=== PATIENT | female | born 1955 | race Caucasian/White ===

== ENCOUNTER 2023-11-04 10:20 | Observation (INO) ==
--- NOTE | 2023-10-30 09:57 | Anesthesiology Consultation ---
Date of Service October 30, 2023 Assessment & Plan Chart Review Chart Review: Pending: Refer to Additional Notes / Consult section (Patient needs a repeat potassium drawn, potassium was 6.0 on 10/10/23) History Surgery Operation Date: 11/04/23 08:50 Proposed Procedures p Left Total Knee Arthroplasty - Andrew Juares MD Height/Weight Height: 5 ft 3 in Weight: 102.058 kg Allergies Allergy/AdvReac Type Severity Reaction Status Date / Time No Known Allergies Allergy Verified 10/29/23 16:14 Medications Home Medications Medication Instructions Recorded Confirmed Last Taken acetaminophen 500 mg tablet 1,000 mg PO TID PRN Pain 06/26/23 10/29/23 07/24/23 12:00 (Tylenol Extra Strength) alendronate 70 mg tablet (Fosamax) 70 mg PO WK 06/26/23 10/29/23 07/06/23 calcium carbonate 600 mg calcium 600 mg PO QAM 06/26/23 10/29/23 07/11/23 (1,500 mg) tablet glucosamine-chondroitin 250 mg-200 1 tab PO QAM 06/26/23 10/29/23 07/11/23 mg tablet (Osteo Bi-Flex) lisinopril 10 mg tablet 10 mg PO QAM 06/26/23 10/29/23 07/24/23 06:00 spironolactone 50 mg tablet 50 mg PO QAM 06/26/23 10/29/23 07/24/23 06:00 (Aldactone) vit C 226 mg-vit E 90 mg-copper 1 cap PO QAM 06/26/23 10/29/23 07/11/23 0.8 mg-zinc oxide-lutein 5 mg capsule (PreserVision Lutein) aspirin 81 mg tablet,delayed 81 mg PO BID 45 days #90 tabs 07/23/23 10/29/23 Unknown release (Amisha Low Dose Aspirin) sennosides 8.6 mg tablet (Senokot) 8.6 mg PO BID prevent constipation 07/23/23 10/29/23 Unknown 14 days #28 tabs Past Medical History Medical History Osteoarthritis History of blood transfusion with delivery in 1970s History of endometrial biopsy fibroid cysts, then hysterectomy History of trigger finger injection to treat once > 10 yrs ago Hypertension controlled, stable per pt History of COVID-19 x2, most recent March 2022 > not hospitalized overnight, just ED for fluids the first episode, second time took antiviral-denies residual symptoms Osteoporosis Past Surgical History Surgical History Status post right knee replacement History of hysterectomy History of colonoscopy History of tooth extraction Social History Smoking Status: Never smoker Do You Dip or Chew Tobacco: No Hx Alcohol Use: No Hx Substance Use: No substance use type: does not use Testing Laboratory Results 10/10/23 WBC 9.2 Hgb 13.7 platelet 452 Na 137 K 6.0 Cl 104 CO2 22 BUN 22 Cr 0.8 glucose 110 PT 11.2 PTT 30.1 INR 1.0 Electrocardiogram Date: 07/02/23 Findings: + NSR @ (76 bpm) Chest X-Ray Date: 07/02/23 Findings: + NAD
--- NOTE | 2023-11-02 08:15 | History & Physical Report ---
Date of Service November 02, 2023 Assessment & Plan (1) Left knee DJD: 68-year-old female 3 months out from right knee replacement with advanced left knee DJD. She has failed conservative measures. She like to proceed with a left knee replacement. Very happy with her right knee. Plan: Will take to the operative left knee replacement for the risks Mente this procedure were once again explained to the patient and she understands. She desires to proceed. With aspirin for DVT prophylaxis. She is discharged home using the [facility] health program. (2) Status post right knee replacement: History of Present Illness Chief Complaint: . Persistent left knee pain and discomfort. Primary Care Provider: Joy Juan . Patient is a 68-year-old female now about 3 months out from a right knee replacement with persistent left knee pain discomfort. She is got a long history of knee problems treated conservatively over the years which has become less successful. She is done well with the right knee replacement and very happy with it. That she like to have her left knee fixed to soon as possible. She has been through extensive conservative treatment for both her knees at [facility] in [place]. She is failed conservative care. Allergies Allergy/AdvReac Type Severity Reaction Status Date / Time No Known Allergies Allergy Verified 10/29/23 16:14 Home Medications Medication Instructions Recorded Confirmed Type acetaminophen 500 mg tablet 1,000 mg PO TID PRN Pain 06/26/23 10/29/23 History (Tylenol Extra Strength) alendronate 70 mg tablet (Fosamax) 70 mg PO WK 06/26/23 10/29/23 History calcium carbonate 600 mg calcium 600 mg PO QAM 06/26/23 10/29/23 History (1,500 mg) tablet glucosamine-chondroitin 250 mg-200 1 tab PO QAM 06/26/23 10/29/23 History mg tablet (Osteo Bi-Flex) lisinopril 10 mg tablet 10 mg PO QAM 06/26/23 10/29/23 History spironolactone 50 mg tablet 50 mg PO QAM 06/26/23 10/29/23 History (Aldactone) vit C 226 mg-vit E 90 mg-copper 1 cap PO QAM 06/26/23 10/29/23 History 0.8 mg-zinc oxide-lutein 5 mg capsule (PreserVision Lutein) aspirin 81 mg tablet,delayed 81 mg PO BID 45 days #90 tabs 07/23/23 10/29/23 Rx release (Amisha Low Dose Aspirin) sennosides 8.6 mg tablet (Senokot) 8.6 mg PO BID prevent constipation 07/23/23 10/29/23 Rx 14 days #28 tabs Past Med/Surg History Medical History (Updated 11/02/23 @ 08:14 by Andrew Juares MD) Left knee DJD Osteoarthritis History of blood transfusion with delivery in 1970s History of endometrial biopsy fibroid cysts, then hysterectomy History of trigger finger injection to treat once > 10 yrs ago Hypertension controlled, stable per pt History of COVID-19 x2, most recent March 2022 > not hospitalized overnight, just ED for fluids the first episode, second time took antiviral-denies residual symptoms Osteoporosis Surgical History Status post right knee replacement History of hysterectomy History of colonoscopy History of tooth extraction Social History Smoking Status: Never smoker Second Hand Exposure: No; Do You Dip or Chew Tobacco: No; Hx Alcohol Use: No Hx Substance Use: No Preferred Language: Kosovan Communication Ability: Effective Entertainment Centre Manager Required: No Beliefs That Will Affect Care: None Current Living Situation: Alone Feels Safe at Home: Yes Safety Concerns: Feels Safe At This Time Assistive Devices: Glasses Review of Systems All systems reviewed & are unremarkable except as noted in HPI & below. Physical Exam . Physical examination is a pleasant middle-age female but looks in good health. Examination of both knees reveal patient who ambulates independently. Examination of the left knee reveals a slight varus alignment to her knee. Moderate soft tissue envelope. Tender over the medial joint line. Small effusion. Range of motion 5-1 20. No instability. Examination of the right knee reveals well-healed incision. Not much swelling. Range of motion 0-1 20. Good straight leg raise. Constitutional WD/WN, vitals as above Neck trachea midline, no thyromegaly Respiratory normal respiratory effort, lungs clear to auscultation Cardiovascular RRR, no murmur, no edema Gastrointestinal (Abdomen) normal bowel sounds, soft, nontender, no hepatosplenomegaly Results & Data Results & Data Laboratory Results . Diagnostic Findings . X-rays of the knees were reviewed. She is got advanced left knee DJD. She got complete loss of the medial joint space. She got osteophytes medially. She is got subchondral sclerosis. The right knee replacement looks to be in good position without problems. PG Care Time/CCT Total # of Minutes Spent Total Time Spent with Patient: Total time spent is greater than 50% in coordination of care (as documented) at patient's floor/unit and/or counseling patient: Coding Level of Care Code None Diagnoses Left knee DJD M17.12 Status post right knee replacement Z96.651
[~2023-11-04 10:20] MED LIST: ACETAMINOPHEN 500 MG TAB PO SCH; BUPIVACAINE 0.25% PF 30 ML VIAL ONE; BUPIVACAINE 0.5 % 5 MG/1 ML PF 10ML VIAL ONE; CeleBREX 200 MG CAP PO SCH; FAMOTIDINE 20 MG TAB PO SCH; LR 15ML/HR IV SCH; LR 60ML/HR IV SCH; METOCLOPRAMIDE HCL 10 MG TABLET PO SCH; ROPIV 0.5% 246mg, Ketorolac 30mg, EPINEPHrine 0.5mg in NSS INFIL SCH; Scopolamine 1 MG TDSY TD SCH; TRANEXAMIC ACID 1,000 MG **IV Intra-op IV SCH; ceFAZolin 2000MG 2,000 MG/15 ML SYR IV SCH; dexAMETHasone**PF** 10 MG/ML VIAL IV SCH
--- NOTE | 2023-11-04 10:36 | History & Physical Bridge Note ---
Date of Service November 04, 2023 History & Physical Bridge Note I have examined the patient, reviewed the History & Physical and in the interval since the performance of the History & Physical I have noted the following changes of clinical significance: no changes noted
[2023-11-04] MEDS ORDERED: LIDOCAINE 2% 2 ML VIAL/AMP(20MG/ML) INFIL ONE (11:04)
[2023-11-04] MEDS ORDERED: PROPOFOL IV EMULSION 10 MG/ML 20 ML VIAL IV ONE (11:04)
[2023-11-04] MEDS ORDERED: MIDAZOLAM HCL 1 MG/ML 2ML VIAL ONE (11:04)
[2023-11-04] MEDS ORDERED: ONDANSETRON INJ 2 MG/ML 2 ML VIAL IV PRN ×2 (11:44→15:52)
[2023-11-04] MEDS ORDERED: ATROPINE SULFATE 0.1 MG/ML 10ML SYR IV PRN (11:44)
[2023-11-04] MEDS ORDERED: ePHEDrine sulfate 50 MG/ML AMP IV PRN (11:44)
[2023-11-04] MEDS ORDERED: fentaNYL citrate PF 100 MCG/2 ML VIAL IV PRN (11:44)
[2023-11-04] MEDS ORDERED: ORTHO JOINT ANESTHETIC ONE (12:29)
--- NOTE | 2023-11-04 14:35 | Operative Report ---
PG Post Operative Report Pre & Post Diagnosis Operation Date: 11/04/23 12:30 Pre-Op Diagnosis: Left Knee Advanced Degenerative Joint Disease Post-Op Diagnosis: Left Knee Advanced Degenerative Joint Disease I identified the patient and participated in the time-out.: Yes Procedure Operation Date: 11/04/23 12:30 Actual Procedures p Left Total Knee Arthroplasty(Left) - Andrew Juares MD Surgeon Andrew Juares MD Celebrity Chef Entrepreneur Media Personality Beni Gallegos PA-C Estimated Blood Loss 50 Findings Consistent with Post-Op Diagnosis Operative findings reveal advanced left knee tricompartment DJD. She had grade 4 [id number] disease in all 3 compartments most severe medially. She had medial osteophytes. Moderate-sized joint effusion. Specimens Left knee sent for pathology. Anesthesia Type Spinal MAC Complications none Disposition Accompanied Patient To Recovery: No Indications Patient is a 68-year-old female is had a long history of bilateral knee pain discomfort describes gotten worse over time patient been to extensive conservative treatments became less successful. She had her right knee replaced a little over 3 months ago and done well from this. Continued be limited by left knee pain discomfort stiffness. She elected proceed with total knee arthroplasty on the left side. Description of Procedure Operative implants consist of: 1 Biomet Vanguard size 65 left Po stabilized femoral component. 2. Biomet size 67 tibial tray. 3. 10 mm post stabilized polyethylene insert. 4. 28 x 8 all poly patella. The patient was taken to the operating, identified, placed on the operating table in the supine position. All contact areas were appropriately padded. IV antibiotics from the anesthesia team. A spinal anesthetic and abductor canal block had provided in the holding area. Aldridge catheter was placed in sterile fashion through the left thigh tent was then placed in the left lower extremities then prepped and draped in usual sterile fashion. The left leg was elevated and exsanguinated with use of an Esmarch and the turn was placed at 300 mmHg. An anterior approach the left knee was then performed to longitudinal incision centered over the patella. Sharp dissection was carried through subcutaneous tissue down the extensor mechanism. A medial parapatellar arthrotomy incision was made. Some subperiosteal dissection was get out medially. The fat pad was resected from Neath patella tendon. The lateral patellofemoral ligament was released. Patella subluxated laterally knee was flexed. The osteophytes were taken on distal femur. ACL and PCL were then released from distal femur and the tibia subluxated anteriorly. The external treatment line jig was then placed in the interface of the tibia and adjusted 14 mm medially. Proximal tibial cut was made to remove about a millimeter of bone from the most deficient aspect medial tibial plateau. The tibia sized to a size 67. Attention drawn the femur. The distal femur examined the sharp drop with intramedullary canal was suction. A left 5 degree valgus cutting guide was placed. The distal femoral cutting block was pinned in place. Distal femoral cut was made to take an additional 3 mm bone off distal femur. The femur was then sized to a size 65. The AP cutting block was pinned parallel to the epicondylar axis which was 4 degrees of external rotation. The anterior cut, anterior chamfer, posterior cut, posterior chamfer cuts were made. The box cutting guide was placed in a just slight lateral and the box cut was made. The knee was flexed. The remnants of the medial and lateral menisci were excised. The osteophytes taken off the posterior aspect of femur. A trial femoral component was placed for the tibial tray was pinned Lesly external rotation and the drill and stem punch used. Defect in proximal tibia for the tibial tray. Knee was then trialed and the 10 mm insert fit most appropriately. Attention drawn the patella. The patella was cleaned of all soft tissues. Patella thickness measured 20 mm in thickness was cut down to 12. It was sized to a size 28 patella. The lug holes were drilled for the 28 patella. The lateral osteophytes removed. Patell a button was placed. Knee was taken through range of motion patella tracked nicely with no thumbs test. Attention drawn to placing the permanent components. All trial components were removed. Bone plug was placed in the distal femur limit blood loss. A double batch Palacos G cement was mixed. Biomet Vanguard size 65 left posterior stabilized femoral component, size 67 tibial tray, a 10 mm pro stabilized polyethylene insert, and a 28 x 8 all poly patella then cemented in place. The knee was brought out into full extension till cement hardened. Final cement check was then performed. Pericapsular tissues were injected with total 100 cc of combination of 50 cc of ropivacaine with epinephrine, 30 mg of Toradol, 50 cc of normal saline. The patient did receive 1 g tranexamic acid. The tourniquet was then let down for final tourniquet time 54 minutes. Hemostasis assured use electrocautery. Extensor Metros then closed with combination 1 PDS suture #1 Vicryl suture in [id number] fashion. Extensor Meclomen checked found to be intact and subcutaneous tissue was then closed with 2 Dexon suture in a buried interrupted fashion the skin was closed skin janett. Leg was then cleaned and dried and sterile dressing was Xeroform, 4 fours, sterile cast padding, Kadeem bandage were applied. Patient then transferred to the recovery room in stable condition. Patient tolerated proced ure well and there were no complications. Beni Gallegos, my physician field research assistant, was present for the entire procedure. His assistance was essential and required for appropriate patient positioning, p repping and draping, surgical exposure, performing the technical details of the operation, placement the implants, closure of the wound, and placement of the sterile bandage. I attest to the content of the Intraoperative Record and any orders documented therein. Any exceptions are noted below.
--- NOTE | 2023-11-04 14:56 | Anesthesiology Progress Note ---
Date of Service November 04, 2023 Anesthesia Post Procedure Vital Signs Vital Signs: Temp Pulse Pulse Resp BP Pulse Ox O2 Del Method 11/04/23 14:50 75 18 112/54 L 94 Room Air 11/04/23 14:40 82 17 108/54 L 93 Room Air 11/04/23 14:31 36.5 C 81 16 102/54 L 94 Room Air 11/04/23 10:58 36.8 C 70 20 128/73 97 Room Air Pain Intensity Left Knee: Pain Intensity: 0 Transfer of Care Handoff Completed per policy Notes Mental Status: alert / awake / arousable and participated in evaluation Patient Amnestic to Procedure: Yes Nausea / Vomiting: adequately controlled Pain: adequately controlled Airway Patency, RR, SpO2: stable & adequate BP & HR: stable & adequate Hydration State: stable & adequate Neuraxial Anesthesia: was administered and sensory block is resolving Anesthetic Complications: no major complications apparent and Pt Satisfied with anesthetic care
--- NOTE | 2023-11-04 15:19 | XRay Report ---
LEFT KNEE 2 VIEWS History: Left total knee arthroplasty. Degenerative arthritis. Postop. FINDINGS: The patient is status post a left total knee arthroplasty. The hardware is intact. No fract ure or dislocation. Skin janett are in place. IMPRESSION: Left total knee arthroplasty. No evidence for hardware complication. ACT 112: Negative or not required by law. Electronically signed by: Murtaza Sawyer M.D. 11/04/2023 3:17 PM
--- OUTSIDE RECORDS SUMMARY | 2023-11-04 15:44 | External Medical Summary | Continuity of Care Document ---
Author Name Unknown Organization [place] Address [address], [address] [place] [address] Phone [phone] Problems Description No Active Problems Social History Type Date Description Comments Sex Unknown Tobacco Use Reviewed: 10/31/23 Never Smoked Cigarette s Tobacco Use Reviewed: 10/31/23 Never Smoked Cigars Smoking Status Reviewed: 10/31/23 Never Smoked Cigars Tobacco Use Reviewed: 10/31/23 Never Smoked A Pipe Smokeless Tobacco 10/31/2023 Never Used Smokeless To bacco ETOH Use Occasionally consumes alcoho l Recreational Drug Use Denies Drug Use Allergies and adverse reactions Description No Known Drug Allergies Medications Active Medications SIG Qnty Indications Order ing Provider Date Oxycodone HCL5mg Tablets 1-2 tab every 6 hours as needed Andrew Juares MD 07/26/2023 Lxhqkmdceg445qm Capsules 1 tablet by mouth twice a day Andrew Juares MD 07/26/2023 Ptlkawvoucw9aj Tablets Dispers 1 tablet every 8 hours as needed for nausea Andrew Juares MD 07/26/2023 Ketorolac Yiiieiklotbe87bb Tablets 1 tablet by mouth three times a day Andrew Juares MD 07/26/2023 Diclofenac Sodium1% Gel apply 4 grams externally to right knee 4 times daily for pain 300gm M25.561 Jimy Casanova JR, DO 05/19/2023 Alendronate Rmljnt81lz Tablets Take 1 Tablet Once Weekly 30 Minutes Before Breakfast With 8Oz Of Water. Remain Upright For 60 Minutes After Taking Medication. 12tabs YUE Cross 09/13/2022 Hkwjajwghb15jz Tablets Take 1 Tablet Daily 90tabs Joy dc MD, PhD 11/12/2019 Frjxotfckjezem73yf Tablets Take 1 Tablet Daily 90tabs YUE [place] 10/02/2018 Calcium + X9Pshqwtp 1 po qd Joy Juan MD, PhD Osteo Bi-Flex Regular [id number] Tablets 2 in the in the morning Unknown Diclofenac Jinoys18ze Tablets DR 1 by mouth twice a day 90tabs YUE [facility] Aspirin 81 Low Hdjg14dw Chewtabs 1 by mouth every day Unknown History Medications Oekygmopuu89hd Tablets 4 tabs po qd x 2 days, 3 tabs po qd x 2 days, 2 tabs po qd x 2 days, 1 tab po qd x 2 days 20tabs M25.561 Jimy Casanova JR, DO 05/19/2023 - 05/27/2023 Immunizations CPT Code Status Date Vaccine Lot # [id number] Given 07/04/2023 Influenza Vaccine High Do se 0.5ML Age 65 & > 82448 Given 07/24/2022 Influenza Vaccine High Do se 0.5ML Age 65 & > [id number] 37972 Given 07/24/2022 Pneumococcal Conjugate-Pr evnar 20 [id number] 68025 Given 08/09/2021 Influenza Virus Vaccine, Quadrivalent (Cciiv4), Derived From Cell 91432 Given 03/27/2020 Shingrix 12277 Given 12/06/2019 Shingrix 72038 Given 08/05/2019 Influenza Vacci ne Quadrivalent Preser/Antibiotic Free [place] Use 33977 Given 11/03/2018 Tdap (Tetanus, diphtheria & acel. pertussis) Adacel or Boostrix 03411 Given 07/10/2018 Influenza Virus Vaccine, Quadrivalent, Im Use 70370 Given 08/07/2017 Influenza Virus Vaccine, Quadrivalent, Im Use 61873 Given 07/15/2016 Influenza Virus Vaccine, Quadrivalent, [place] Use 83207 Given 06/29/2014 Influenza Vac, Split 3 Yr s And Up [id number] 53681 Given 06/07/2014 Zostavax Vaccine 54416 Given 07/28/2013 Influenza Vac, Split 3 Yr s And Up 92372 Given 07/24/2012 Pneumococcal Vaccine/Pneu movax 23 62855 Refused 01/23/2023 Moderna Sars-Co v-2 (Cov-19) vacc,100 mcg/ 0.5 mL 12Y+EMR Doc Only [id number] Refused 01/09/2022 Moderna Sars-Co v-2 (Cov-19) vacc,100 mcg/ 0.5 mL 12Y+EMR Doc Only 69933 Refused 12/26/2020 Moderna Sars-Co v-2 (Cov-19) vacc,100 mcg/ 0.5 mL 12Y+EMR Doc Only 11186 Refused 06/02/2020 Influenza Virus Vaccine, Quadrivalent, Im Use 18805 Refused 06/16/2019 Influenza Virus Vaccine, Quadrivalent, Im Use 32291 Refused 10/02/2018 Tdap (Tetanus, diphtheria & acel. pertussis) Adacel or Boostrix 61429 Refused 01/24/2016 Tetanus Toxoid 60865 Refused 01/24/2016 Influenza Virus Vaccine, Quadrivalent, Im Use 58420 Refused 01/04/2015 Tdap (Tetanus, diphtheria & acel. 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 [address] [place] [address] [phone] PT 11.2 SEC 10.0-12.4 1, 2 Inr 1.0 RATIO Laboratory test finding 10/17/2023 [facility] [address] [place], [place] [id number] [phone] PTT 30.1 SEC 27.0-38.1 3 BMP 10/17/2023 [facility] [address] [place], [place] [id number] [phone] Glucose 103 mg/dL 70-110 BUN 36 mg/dL High 6-25 Creatinine 1.1 mg/dL 0.5-1.2 Sodium 136 mEq/L 135-145 Potassium 5.3 mEq/L High 3.5-5.0 Chloride 103 mEq/L 95-107 Co-2 24 mEq/L 24-31 Calcium 9.8 mg/dL 8.5-10.6 GFR 53 ML/MIN/1.73SQM Low >60 Comp. Met 10/10/2023 [facility] [address] [place], [place] [address] [phone] Glucose 110 mg/dL 70-110 BUN 22 mg/dL 6-25 Creatinine 0.8 mg/dL 0.5-1.2 Sodium 137 mEq/L 135-145 Potassium 6.0 mEq/L High 3.5-5.0 Chloride 104 mEq/L 95-107 Co-2 22 mEq/L Low 24-31 Alk Phos 68 IU/L 43-122 Alt(SGPT) 19 IU/L 10-40 Ast(Sgot) 15 IU/L 3-42 T.Bilirubin 0.4 mg/dL 0.1-1.3 Calcium 9.8 mg/dL 8.5-10.6 Tot.Protein 7.3 g/dL 5.8-8.0 Albumin 4.8 g/dL 3.0-5.2 Globulin 2.5 g/dL 2.0-3.4 GFR 76 ML/MIN/1.73SQM >60 Lipid 10/10/2023 [facility] [address] [place] [address] [phone] Cholesterol 211 mg/dL High 0-200 4 Triglyceride 144 mg/dL 0-150 5 HDLD 61 mg/dL See Comment 6 Measured LDL 137 mg/dL High 0-130 7 Calc VLDL 28.8 mg/dL See Comment 8 Chol/HDL 3.5 RATIO See Comment 9 Non-HDL 150 mg/dL See Comment 10 CBC W/Diff 10/10/2023 [facility] [address] [place] [address] [phone] WBC 9.2 10^3/M3 3.1-9.2 RBC 4.49 10^6/M3 3.70-5.50 HGB 13.7 GR/DL 11.5-16.1 HCT 41.2 % 34.5-47.8 MCV 91.9 CUMICR 82.6-95.8 MCH 30.5 PICOGR 27.9-32.9 MCHC 33.2 % 32.6-35.4 RDW 14.6 % 11.4-14.6 PLT 452 10^3/M3 High 140-350 MPV 7.6 CUMICR 7.0-10.6 %Neut 65.5 % 40.0-75.0 %Lymph 22.6 % 17.0-45.0 %[place] 9.4 % 1.0-11.0 %Eos 1.4 % 0.0-6.0 %Baso 1.1 % 0.0-2.0 #Neut 6.0 10^3/M3 1.5-8.0 #Lymph 2.1 10^3/M3 0.8-3.2 #[place] 0.9 10^3/M3 High 0.0-0.8 #Eos 0.1 10^3/m3 0.0-0.4 #Baso 0.1 10^3/m3 0.0-0.2 Laboratory test finding 10/10/2023 [facility] [address] [place] [address] [phone] Vitd-25Oh 33 ng/mL 30-100 C-Reactive Prot 0.621 mg/dL 0.000-0.700 Sed Rate 8 0-20 BMP 07/18/2023 [facility] [address] [place] [address] [phone] Glucose 115 mg/dL High 70-110 11 BUN 30 mg/dL High 6-25 Creatinine 0.9 mg/dL 0.5-1.2 Sodium 143 mEq/L 135-145 Potassium 4.9 mEq/L 3.5-5.0 Chloride 111 mEq/L High 95-107 Co-2 23 mEq/L Low 24-31 Calcium 9.7 mg/dL 8.5-10.6 GFR 67 ML/MIN/1.73SQM >[address] Andrew Juares. [place] Phone - [phone] Fax [phone] NORMAL PATIENT CONTR OL IS 11.5 INR REFERENCE RANGES: PROPHYLAXIS IN CARDIC DISEASE 2.0-3.0 PROSTHETIC HEART VALVE 3.0-4.5 RECURRENT EMBOLISM 3.0-4.5 PROPHLAXIS IN HIGH RISK SURGERY 2.0-2.5 TREATMENT IN PULMONARY EMBOLIS 2.0-3.0 3 UNABLE TO VERIFY SUSIE DELLA TUBE VOLUME OF ALIQUOTTED SAMPLE. RESULT ACCURACY DEPENDENT ON PRIMARY TUBE VOLUME. PTT COMMENTS REPORT FAXED TO DOCTOR, REQUESTED ON REQUISITION.10/17/23 LM 4 CHOLESTEROL Less than 200mg/dl Low risk 201-239 mg/dl Borderline risk Equal to or greater 240mg/dl High risk CHOLESTEROL COMMENTS REPORT FAXED TO DOCTOR, REQUESTED ON REQUISITION.10/10/23 5 TRIGLYCERIDES Less than 150mg/dl Normal 150-199mg/dl Borderline 200-499mg/dl High Greater than 500mg/dl Very High 6 HDL <40mg/dl Elevated Risk 41-59mg/dl Risk >=60mg/dl Least Risk 7 LDL <100mg/dl Optimal 100-129mg/dl Near Optimal 130-159mg/dl Borderline High 160-189mg/dl High >=190 Very High 8 VLDL Less than 30mg/dl Normal 9 CHOL/HDL <4.0 Optimal 4.0-5.0 Borderline >6.0 High Risk 10 NON-HDL 30mg/dl higher than LDL Target 11 STAT RESULTS CALLED AND FAXED TO JAMES Gilliland AT 3:17 ON 07/18/23 WK Procedures Date Code Description Status 10/31/2023 3078F PVRP Diastolic BP <80 mmHg C ompleted 10/31/2023 73838 Venipuncture Routine Complet ed 10/31/2023 3074F PVRP Systolic BP <130 mmHg C ompleted 10/17/2023 91073 Venipuncture Routine Complet ed 10/13/2023 12486167 Mammogram Completed 10/10/2023 08840 Venipuncture Routine Complet ed 09/12/2023 G0283 Electrical Stimulation as Th erapy Plan Of Care Completed 09/12/2023 59828 Therapeutic Activities Direc t, Each 15 Minutes Completed 09/12/2023 09990 Therapeutic Procedure Group Completed 09/12/2023 43574 Manual Tool Crib Clerk 1/> Area 15 Min Each Region Completed 09/12/2023 38919 Therapy Proc, Neuromuscular Reeducation Of Movement Completed 09/12/2023 92420 Hot/Cold Pack Completed 09/10/2023 G0283 Electrical Stimulation as Th erapy Plan Of Care Completed 09/10/2023 74606 Hot/Cold Pack Completed 09/10/2023 13559 Therapy Proc, Neuromuscular Reeducation Of Movement Completed 09/10/2023 19970 Manual Tool Crib Clerk 1/> Area 15 Min Each Region Completed 09/10/2023 51877 Therapeutic Procedure Group Completed 09/10/2023 26821 Therapeutic Activities Direc t, Each 15 Minutes Completed 09/08/2023 32068 Hot/Cold Pack Completed 09/08/2023 25429 Therapy Proc, Neuromuscular Reeducation Of Movement Completed 09/08/2023 96652 Therapeutic Procedure Group Completed 09/08/2023 30141 Therapeutic Activities Direc t, Each 15 Minutes Completed 09/08/2023 G028 Electrical Stimulation as Th erapy Plan Of Care Completed 09/08/2023 29026 Manual Tool Crib Clerk 1/> Area 15 Min Each Region Completed 09/03/2023 G0283 Electrical Stimulation as Th erapy Plan Of Care Completed 09/03/2023 72021 Therapeutic Procedure Group Completed 09/03/2023 38682 Manual Tool Crib Clerk 1/> Area 15 Min Each Region Completed 09/03/2023 01771 Therapy Proc, Neuromuscular Reeducation Of Movement Completed 09/03/2023 48530 Hot/Cold Pack Completed 09/01/2023 72462 Manual Tool Crib Clerk 1/> Area 15 Min Each Region Completed 09/01/2023 67967 Hot/Cold Pack Completed 09/01/2023 85364 Therapy Proc, Neuromuscular Reeducation Of Movement Completed 09/01/2023 70973 Therapeutic Procedure Group Completed 09/01/2023 51911 Therapeutic Activities Direc t, Each 15 Minutes Completed 09/01/2023 G0283 Electrical Stimulation as Th erapy Plan Of Care Completed 08/27/2023 G0283 Electrical Stimulation as Th erapy Plan Of Care Completed 08/27/2023 47708 Therapeutic Activities Direc t, Each 15 Minutes Completed 08/27/2023 78052 Therapeutic Procedure Group Completed 08/27/2023 08305 Manual Tool Crib Clerk 1/> Area 15 Min Each Region Completed 08/27/2023 75211 Therapy Proc, Neuromuscular Reeducation Of Movement Completed 08/27/2023 43129 Hot/Cold Pack Completed 08/26/2023 79471 Hot/Cold Pack Completed 08/26/2023 85178 Therapy Proc 1/> Area 15Min Ea Completed 08/26/2023 53753 Manual Tool Crib Clerk 1/> Area 15 Min Each Region Completed 08/26/2023 31724 Therapy Proc, Neuromuscular Reeducation Of Movement Completed 08/26/2023 G0283 Electrical Stimulation as Th erapy Plan Of Care Completed 08/26/2023 24762 Therapeutic Activities Direc t, Each 15 Minutes Completed 08/25/2023 94847 Therapeutic Procedure Group Completed 08/25/2023 86436 Manual Tool Crib Clerk 1/> Area 15 Min Each Region Completed 08/25/2023 01712 Therapy Proc, Neuromuscular Reeducation Of Movement Completed 08/25/2023 57172 Therapy Proc 1/> Area 15Min Ea Completed 08/25/2023 04824 Hot/Cold Pack Completed 08/25/2023 G0283 Electrical Stimulation as Th erapy Plan Of Care Completed 08/22/2023 52932 Therapy Proc 1/> Area 15Min Ea Completed 08/22/2023 61416 Hot/Cold Pack Completed 08/22/2023 40813 Therapy Proc, Neuromuscular Reeducation Of Movement Completed 08/22/2023 09250 Manual Tool Crib Clerk 1/> Area 15 Min Each Region Completed 08/22/2023 51781 Therapeutic Procedure Group Completed 08/22/2023 G0283 Electrical Stimulation as Th erapy Plan Of Care Completed 08/20/2023 G0283 Electrical Stimulation as Th erapy Plan Of Care Completed 08/20/2023 67999 Manual Tool Crib Clerk 1/> Area 15 Min Each Region Completed 08/20/2023 61661 Therapy Proc, Neuromuscular Reeducation Of Movement Completed 08/20/2023 82886 Therapy Proc 1/> Area 15Min Ea Completed 08/20/2023 50521 Hot/Cold Pack Completed 08/18/2023 41434 Hot/Cold Pack Completed 08/18/2023 81286 Therapy Proc 1/> Area 15Min Ea Completed 08/18/2023 30271 Therapy Proc, Neuromuscular Reeducation Of Movement Completed 08/18/2023 43686 Therapeutic Procedure Group Completed 08/18/2023 G0283 Electrical Stimulation as Th erapy Plan Of Care Completed 08/18/2023 47689 Manual Tool Crib Clerk 1/> Area 15 Min Each Region Completed 08/15/2023 G0283 Electrical Stimulation as Th erapy Plan Of Care Completed 08/15/2023 51626 Therapeutic Procedure Group Completed 08/15/2023 11278 Manual Tool Crib Clerk 1/> Area 15 Min Each Region Completed 08/15/2023 58765 Therapy Proc, Neuromuscular Reeducation Of Movement Completed 08/15/2023 94643 Therapy Proc 1/> Area 15Min Ea Completed 08/15/2023 06607 Hot/Cold Pack Completed 08/14/2023 67984 Therapy Proc, Neuromuscular Reeducation Of Movement Completed 08/14/2023 92755 Hot/Cold Pack Completed 08/14/2023 51043 Therapy Proc 1/> Area 15Min Ea Completed 08/14/2023 21859 Manual Tool Crib Clerk 1/> Area 15 Min Each Region Completed 08/14/2023 74629 Therapeutic Procedure Group Completed 08/14/2023 G0283 Electrical Stimulation as Th erapy Plan Of Care Completed 08/12/2023 00586 Physical Therapy Evaluation Low Complexity Completed 08/12/2023 52589 Manual Tool Crib Clerk 1/> Area 15 Min Each Region Completed 08/12/2023 10675 Therapy Proc 1/> Area 15Min Ea Completed 07/28/2023 1111F D/C Medications Reconciled W/Current Medications In Outpt MR Completed 07/18/2023 70756 Venipuncture Routine Complet ed 09/05/2022 [id number] Bone Mineral Density Test Co mpleted 08/07/2018 [id number] Colonoscopy Completed Medical Devices Description No Information Available Encounters Type Date Location Provider Dx Diagnosis Office Visit 10/31/2023 11:00a [facility] [place] E87.5 Hyperkalemia E55.9 Vitamin D deficiency , unspecified M81.0 Age-related osteopor osis w/o current pathological fracture L68.0 Hirsutism I10 Essential (primary) hypertension Office Visit 07/18[place] 9[place] Z01.818 Encounter for other preprocedural examination Office Visit 05/19/2023 10:45a [place], QUIQUE M25.561 Pain in right knee M17.0 Bilateral primary os teoarthritis of knee Assessments Date Code Description Provider 10/31/2023 E87.5 Hyperkalemia YUE Cross 10/31/2023 E55.9 Vitamin D deficiency, unspec ified YUE [facility] 10/31/2023 M81.0 Age-related oste oporosis without current pathological fracture YUE Cross 10/31/2023 L68.0 Hirsutism YUE Cross 10/31/2023 I10 Essential (primary) hyperten barbara YUE Cross 10/17/2023 E87.5 Hyperkalemia Joy Juan MD, PhD 10/17/2023 E87.5 Hyperkalemia Lab - [facility] 10/17/2023 Z78.9 Other specified health statu s Joy Juan MD, PhD 10/17/2023 Z78.9 Other specified health statu s Lab - [place] 10/17/2023 Z01.818 Encounter for ot her preprocedural examination Joy Juan MD, PhD 10/17/2023 Z01.818 Encounter for ot her preprocedural examination Lab - [place] 10/10/2023 E66.01 Morbid (severe) obesity due to excess calories Joy Juan MD, PhD 10/10/2023 E66.01 Morbid (severe) obesity due to excess calories Lab - [place] 10/10/2023 D47.3 Essential (hemorrhagic) thro mbocythemia Joy Juan MD, PhD 10/10/2023 D47.3 Essential (hemorrhagic) thro mbocythemia Lab - [place] 10/10/2023 Z13.6 Encounter for wa reening for cardiovascular disorders Joy Juan MD, PhD 10/10/2023 Z13.6 Encounter for ketan chai for cardiovascular disorders Lab - [place] 10/10/2023 E55.9 Vitamin D deficiency, unspec ified Joy Juan MD, PhD 10/10/2023 E55.9 Vitamin D deficiency, unspec ified Lab - [place] 10/10/2023 Z78.9 Other specified health statu s Joy Juan MD, PhD 10/10/2023 E83.51 Hypocalcemia Lab - [facility] 10/10/2023 Z78.9 Other specified health statu s Lab - [place] 09/12/2023 M25.561 Pain in right knee Jcarlos Bailey, DPT 09/12/2023 Z47.1 Aftercare follow ing joint replacement surgery Jcarlos Bailey, DPT 09/10/2023 M25.561 Pain in right knee Jordan Morataya harpreet, DPT 09/10/2023 Z47.1 Aftercare follow ing joint replacement surgery Jordan Villareal Abdirahman, DPT 09/08/2023 M25.561 Pain in right knee Jordan Morataya harpreet, DPT 09/08/2023 Z47.1 Aftercare follow ing joint replacement surgery Jordan Villareal Abdirahman, DPT 09/05/2023 M25.561 Pain in right knee Jordan Morataya harpreet, DPT 09/05/2023 Z47.1 Aftercare follow ing joint replacement surgery Jordan Villareal Abdirahman, DPT 09/03/2023 M25.561 Pain in right knee Jordan Morataya harpreet, DPT 09/03/2023 Z47.1 Aftercare follow ing joint replacement surgery Jordan Villareal Abdirahman, DPT 09/01/2023 M25.561 Pain in right knee Jordan Morataya harpreet, DPT 09/01/2023 Z47.1 Aftercare follow ing joint replacement surgery Jordan Villareal Abdirahman, DPT 08/27/2023 M25.561 Pain in right knee Jcarlos Bailey, DPT 08/27/2023 Z47.1 Aftercare follow ing joint replacement surgery Jcarlos Bailey, DPT 08/26/2023 M25.561 Pain in right knee Jordan Morataya harpreet, DPT 08/26/2023 Z47.1 Aftercare follow ing joint replacement surgery Jordan Villareal Chester, DPT 08/25/2023 M25.561 Pain in right knee Jcarlos Bailey, DPT 08/25/2023 Z47.1 Aftercare follow ing joint replacement surgery Jcarlos Bailey, DPT 08/22/2023 M25.561 Pain in right knee Jcarlos Bailey, DPT 08/22/2023 Z47.1 Aftercare follow ing joint replacement surgery Jcarlos Bailey, DPT 08/20/2023 M25.561 Pain in right knee Jcarlos Bailey, DPT 08/20/2023 Z47.1 Aftercare follow ing joint replacement surgery Jcarlos Bailey, DPT 08/18/2023 M25.561 Pain in right knee Jcarlos Bailey, DPT 08/18/2023 Z47.1 Aftercare follow ing joint replacement surgery Jcarlos Bailey, DPT 08/15/2023 M25.561 Pain in right knee Jcarlos Bailey, DPT 08/15/2023 Z47.1 Aftercare follow ing joint replacement surgery Jcarlos Bailey, DPT 08/14/2023 M25.561 Pain in right knee Jordan Dionna mullins, DPT 08/14/2023 Z47.1 Aftercare follow ing joint replacement surgery Jordan Villareal Abdirahman, DPT 08/12/2023 M25.561 Pain in right knee Jordan Dionna mullins, DPT 08/12/2023 Z47.1 Aftercare follow ing joint replacement surgery Jordan Villareal Abdirahman, DPT 07/28/2023 M17.0 Bilateral primary osteoarthr itis of knee Joy Juan MD, PhD 07/18/2023 Z01.818 Encounter for ot her preprocedural examination [facility] 05/19/2023 M25.561 Pain in right knee Mushtaq elizabeth PA-C 05/19/2023 M17.0 Bilateral primary osteoarthr itis of knee Mushtaq Gee PA-C Plan of Treatment Future Appointment(s):* 05/07/2024 8:00 am - [facility] at [place] * 04/30/2024 6:45 am - [facility] [place] 10/31/2023 - YUE rCoss* E87.5 Hyperkalemia* Comments:* repeat today * E55.9 Vitamin D deficiency, unspecified * M81.0 Age-related osteoporosis without current pathological fracture* Comments:* up to date with dexa continue fosamax * L68.0 Hirsutism* Comments:* continue spironolactone repeat potassium today as above * I10 Essential (primary) hypertension* Comments:* well controlled, continue current meds. * All* Follow up:* 6 months with fasting labs prior Functional Status Description No Information Available Mental Status Description No Information Available Referrals Description No Information Available
--- OUTSIDE RECORDS SUMMARY | 2023-11-04 15:44 | External Medical Summary | Summary of Care ---
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 0 Active spironolactone (ALDACTONE) 25 MG Tablet Take 25 mg by mouth daily. 0 Active Calcium Carbonate (CALTRATE 600) 1500 (600 Ca) MG Tablet Take 1,500 mg by mouth daily. 0 Active Misc Natural Products (GLUCOSAMINE CHOND COMPLEX/MSM) Tablet Take 1 Tab by mouth daily. 0 Active Multiple Vitamins-Minerals (MULTIVITAMIN ADULT) TABS daily. 0 Active aspirin 81 MG chewable tablet Take 81 mg by mouth daily. 0 Active documented as of this encounter (statuses as of 10/31/2023) Immunizations Name Administration Dates Next Due TDAP (age 10 and older)(Boostrix) 11/03/2018 documented as of this encounter Social History Tobacco Use Types Packs/Day Years Used Date Smoking Tobacco: Never Smokeless Tobacco: Never Sex and Gender Information Value Date Recorded Sex Assigned at Not on file Gender Identity Not on file Sexual Orientation Not on file Job Start Date Occupation Industry Not on file Not on file Not on file documented as of this encounter Plan of Treatment Scheduled Procedures Name Priority Associated Diagnoses Date/Ti me COLONOSCOPY FLEXIBLE PROXIMAL DIAGNOSTIC Recall Colon cancer screening Health Maintenance Due Date Last Done Comments COVID-19 Vaccine (#1) 04/21/1956 Depression Screening 1968 Hepatitis C Screening 1974 Cologuard 2001 Fecal Occult Blood Test 2001 Sigmoidoscopy 2001 Mammogram 10/13/2024 10/13/2023, 12/0 10/2021, 08/28/2021, Additional history exists Colonoscopy 08/07/2028 08/07/2018, 08/07/2018 Colorectal Cancer Screening 08/07/2028 Lipid Panel 10/10/2028 10/10/2023, 0402/2023, 07/19/2022, Additional history exists DTaP,Tdap,and Td Vaccines (2 - Td or Tdap) 11/03/2028 11/03/2018 DXA Scan 09/05/2029 09/05/2022 Zoster Vaccines Completed 03/27/2020, 11/2019, 06/07/2014 Pneumococcal Vaccine: 65+ Years Completed 07/24/2022, 07/24/2012 Influenza Vaccine (FLU shot) Completed , 07/24/2022, 08/09/2021, Additional history exists GARDASIL-HPV IMMUNIZATION SERIES Aged Out No longer eligible based on patient's age to complete this topic Hepatitis B Aged Out No longer eligi ble based on patient's age to complete this topic MENINGOCOCCAL (MENACTRA/MENVEO) Aged Out No longer eligible based on patient's age to complete this topic documented as of this encounter Medical Devices Not on filedocumented as of this encounter Procedures Procedure Name Priority Date/Time Associated Diagnosis Comments BASIC METABOLIC PANEL Routine 10/31/2023 11:25 AM EST documented in this encounter Results * (ABNORMAL) BASIC METABOLIC PANEL (10/31/2023 11:25 AM EST) GLUCOSE-OUTSID E LAB 93 70 - 110 MG/DL [facility] Comment:Document delivery by Colleen on behalf of [facility] BUN-OUTSIDE LAB 29(H) 6 - 25 MG/DL [facility] Comment:Document delivery by Colleen on behalf of [facility] CREATININE-OUT SIDE LAB 1.1 0.5 - 1.2 MG/DL [facility] Comment:Document delivery by Colleen on behalf of [facility] SODIUM-OUTSIDE LAB 140 135 - 145 MEQ/L [facility] Comment:Document delivery by Colleen on behalf of [facility] POTASSIUM-OUTS KASHIF LAB 5.2(H) 3.5 - 5.0 MEQ/L [facility] Comment:Document delivery by Colleen on behalf of [facility] CHLORIDE-OUTSI DE LAB 105 95 - 107 MEQ/L [facility] Comment:Document delivery by Colleen on behalf of [facility] CO2-OUTSIDE LAB 21(L) 24 - 31 MEQ/L [facility] Comment:Document delivery by Colleen on behalf of [facility] CALCIUM-OUTSID E LAB 9.7 8.5 - 10.6 MG/DL [facility] Comment:Document delivery by Colleen on behalf of [facility] EGFR-OUTSIDE LAB 53(L) >60 ML/MIN/1.7 3 SQM [facility] Comment:Document delivery by Colleen on behalf of [facility] 10/31/2023 11:2 5 AM EST No Physician Data Unknown LAB BLOOD NARESHE LUISA [facility] Organization Address City/State/ZIP Co de Phone Number [facility] [address] [place] [address] documented in this encounter Care Teams Liquid Waste Treatment Plant Operator Relationship Specialty Start Date End Date Joy Juan MD [address] [place] [address] PCP - General Family Medicine 12/16/14 documented as of this encounter
--- OUTSIDE RECORDS SUMMARY | 2023-11-04 15:44 | External Medical Summary | Summary of Care ---
Author Name Unknown Organization [facility] Address [address] [place] [address] Phone [phone] Care Team Providers Care Oven Dauber Name Role Phone Joy Juan MD Primary Care Provider + Encounter Details Date Type Department Care Team (Latest Contact Info) Description 10/13/2023 1:41 PM EST - 10/13/2023 11:59 PM EST Hospital Encounter Radiology, [address] [place], [place] [id number] Arrived Discharge Disposition: Home - Self Care Allergies No known active allergiesdocumented as of this encounter (statuses as of 10/14/2023) Medications Medication Sig Dispensed Refills Start Date [...] as of this encounter (statuses as of 10/14/2023) Immunizations Name Administration Dates Next Due TDAP [...] as of this encounter Plan of Treatment Pending Results Name Type Priority Associated Diagnoses Date /Time MAMMOGRAM SCREENING ESTRELLA BILATERAL Medical Imaging Routine Encounter for screening mammogram for breast cancer 10/13/2023 2:01 PM EST Scheduled Procedures Name Priority Associated Diagnoses Date/Ti me COLONOSCOPY FLEXIBLE PROXIMAL DIAGNOSTIC Recall Colon cancer screening Health Maintenance Due Date Last Done Comments COVID-19 Vaccine (#1) 04/21/1956 Depression Screening 1968 Hepatitis C Screening 1974 Cologuard 2001 Fecal Occult Blood Test 2001 Sigmoidoscopy 2001 Mammogram 09/05/2023 09/05/2022, 08/07, 06/23/2020, Additional history exists Colonoscopy 08/07/2028 08/07/2018, 08/07/2018 Colorectal Cancer Screening 08/07/2028 Lipid Panel 10/10/2028 10/10/2023, 01/04, 07/19/2022, Additional history exists DTaP,Tdap,and Td Vaccines (2 - Td or Tdap) 11/03/2028 11/03/2018 DXA Scan 09/05/2029 09/05/2022 Zoster Vaccines Completed 03/27/2020, 11/2019, 06/07/2014 Pneumococcal Vaccine: 65+ Years Completed 07/24/2022, 07/24/2012 Influenza Vaccine (FLU shot) Completed , 07/24/2022, 08/05/2019, Additional history exists GARDASIL-HPV IMMUNIZATION SERIES Aged [...] Not on filedocumented as of this encounter Visit Diagnoses Diagnosis Encounter for screening mammogram for breast cancer documented in this encounter Care Teams Oven Dauber Relationship Specialty Start Date End Date Joy Juan MD [address] [facility] [place] [address] PCP - General Family Medicine 12/16/14 documented as of this encounter
--- OUTSIDE RECORDS SUMMARY | 2023-11-04 15:44 | External Medical Summary | Continuity of Care Document ---
Author Name Unknown Organization [facility] Address [address] [facility], [place] [address] Phone [phone] Problems Description No Active Problems Social History [...] hours as needed Andrew Juares MD 07/26/2023 [id number] Capsules 1 tablet by mouth twice a day Andrew Juares MD 07/26/2023 Zdeflpqphpo9eb Tablets Dispers 1 tablet every 8 hours as needed for nausea Andrew Juares MD 07/26/2023 Ketorolac Uwjeekmzexam24ps Tablets 1 tablet by mouth three times a day Andrew Juares MD 07/26/2023 Diclofenac Sodium1% Gel apply 4 grams externally to right knee 4 times daily for pain 300gm M25.561 Jimy Casanova JR, DO 05/19/2023 Alendronate Brwvza83ig Tablets Take 1 Tablet Once Weekly 30 Minutes Before Breakfast With 8Oz Of Water. Remain Upright For 60 Minutes After Taking Medication. 12tabs [facility] 09/13/2022 Noiqavlmne17lt Tablets Take 1 Tablet Daily 90tabs Joy dc MD, PhD 11/12/2019 Cyotubfjuthgpj72nb Tablets Take 1 Tablet Daily 90tabs [facility] 10/02/2018 Calcium + C4Neufper 1 po qd Joy Juan MD, PhD Osteo Bi-Flex Regular Mbsdadmr814-237vm Tablets 2 in the in the morning Unknown Diclofenac Tcflvv83dd Tablets DR 1 by mouth twice a day 90tabs [facility] Aspirin 81 Low Gwyj03tf Chewtabs 1 by mouth every day Unknown History Medications Mlnpjkroay73ck Tablets 4 tabs po qd x 2 days, 3 tabs po qd x 2 days, 2 tabs po qd x 2 days, 1 tab po qd x 2 days 20tabs M25.561 Jimy Casanova JR, DO 05/19/2023 - 05/27/2023 Immunizations CPT Code Status Date Vaccine Lot # [id number] Given 07/04/2023 Influenza Vaccine High Do se 0.5ML Age 65 & > 26582 Given 07/24/2022 Influenza Vaccine High Do se 0.5ML Age 65 & > [id number] 21007 Given 07/24/2022 Pneumococcal Conjugate-Pr evnar 20 [id number] 16908 Given 08/09/2021 Influenza Virus Vaccine, Quadrivalent (Cciiv4), Derived From Cell 39785 Given 03/27/2020 Shingrix 75720 Given 12/06/2019 Shingrix 83461 Given 08/05/2019 Influenza Vacci ne Quadrivalent Preser/[place] [address] Given 11/03/2018 Tdap (Tetanus, diphtheria & acel. pertussis) Adacel or Boostrix 24709 Given 07/10/2018 Influenza Virus Vaccine, Quadrivalent, Im Use 66421 Given 08/07/2017 Influenza Virus Vaccine, Quadrivalent, Im Use 46657 Given 07/15/2016 Influenza Virus Vaccine, Quadrivalent, Im Use 99822 Given 06/29/2014 Influenza Vac, Split 3 Yr s And Up [id number] 59101 Given 06/07/2014 Zostavax Vaccine 82986 Given 07/28/2013 Influenza Vac, Split 3 Yr s And Up 25560 Given 07/24/2012 Pneumococcal Vaccine/Pneu movax 23 47927 Refused 01/23/2023 Moderna Sars-Co v-2 (Cov-19) vacc,100 mcg/ 0.5 mL 12Y+EMR Doc Only 37510 Refused 01/09/2022 Moderna Sars-Co v-2 (Cov-19) vacc,100 mcg/ 0.5 mL 12Y+EMR Doc Only 41950 Refused 12/26/2020 Moderna Sars-Co v-2 (Cov-19) vacc,100 mcg/ 0.5 mL 12Y+EMR Doc Only 38194 Refused 06/02/2020 Influenza Virus Vaccine, Quadrivalent, Im Use 28523 Refused 06/16/2019 Influenza Virus Vaccine, Quadrivalent, Im Use 91265 Refused 10/02/2018 Tdap (Tetanus, diphtheria & acel. pertussis) Adacel or Boostrix 03286 Refused 01/24/2016 Tetanus Toxoid 88241 Refused 01/24/2016 Influenza Virus Vaccine, Quadrivalent, Im Use 99040 Refused 01/04/2015 Tdap (Tetanus, diphtheria & acel. [...] 5'1" BMI (Body Mass Index) 42.9 kg/m2 [place] Body Weight 105 lb Results Test Acquired Date Facility Test Result H/L Range N ote PT Inr DESIGNER ARCHITECT 10/17/2023 [facility] [address] [place] [address] [phone] PT 11.2 SEC 10.0-12.4 1, 2 Inr 1.0 RATIO Laboratory test finding 10/17/2023 [facility] [address] [place], [place] [id number] [phone] PTT 30.1 SEC 27.0-38.1 3 BMP 10/17/2023 [facility] [address] [place], [place] [id number] [phone] Glucose 103 mg/dL 70-110 BUN 36 mg/dL High 6-25 Creatinine 1.1 mg/dL 0.5-1.2 Sodium 136 mEq/L 135-145 Potassium 5.3 mEq/L High 3.5-5.0 Chloride 103 mEq/L 95-107 Co-2 24 mEq/L 24-31 Calcium 9.8 mg/dL 8.5-10.6 GFR 53 ML/MIN/1.73SQM Low >60 Comp. Met 10/10/2023 [facility] [address] [place], [place] [address] [phone] Glucose 110 mg/dL 70-110 BUN 22 mg/dL [...] 2.0-3.4 GFR 76 ML/MIN/1.73SQM >60 Lipid 10/10/2023 [facility] [address] [place] [address] [phone] Cholesterol 211 mg/dL High 0-200 4 Triglyceride 144 mg/dL 0-150 5 HDLD 61 mg/dL See Comment 6 Measured LDL 137 mg/dL High 0-130 7 Calc VLDL 28.8 mg/dL See Comment 8 Chol/HDL 3.5 RATIO See Comment 9 Non-HDL 150 mg/dL See Comment 10 CBC W/Diff 10/10/2023 [facility] [address] [place] [address] [phone] WBC 9.2 10^3/M3 3.1-9.2 RBC 4.49 10^6/M3 3.70-5.50 HGB 13.7 GR/DL 11.5-16.1 HCT 41.2 % 34.5-47.8 MCV 91.9 CUMICR 82.6-95.8 MCH 30.5 PICOGR 27.9-32.9 MCHC 33.2 % 32.6-35.4 RDW 14.6 % 11.4-14.6 PLT 452 10^3/M3 High 140-350 MPV 7.6 CUMICR 7.0-10.6 %Neut 65.5 % 40.0-75.0 %Lymph 22.6 % 17.0-45.0 %Jay 9.4 % 1.0-11.0 %Eos 1.4 % 0.0-6.0 %Baso 1.1 % 0.0-2.0 #Neut 6.0 10^3/M3 1.5-8.0 #Lymph 2.1 10^3/M3 0.8-3.2 #Jay 0.9 10^3/M3 High 0.0-0.8 #Eos 0.1 10^3/m3 0.0-0.4 #Baso 0.1 10^3/m3 0.0-0.2 Laboratory test finding 10/10/2023 [facility] [address] [place] [address] [phone] Vitd-25Oh 33 ng/mL 30-100 C-Reactive Prot 0.621 mg/dL 0.000-0.700 Sed Rate 8 0-20 BMP 07/18/2023 [facility] [address] [place] [address] [phone] Glucose 115 mg/dL High 70-110 11 BUN 30 mg/dL High 6-25 Creatinine 0.9 mg/dL 0.5-1.2 Sodium 143 mEq/L 135-145 Potassium 4.9 mEq/L 3.5-5.0 Chloride 111 mEq/L High 95-107 Co-2 23 mEq/L Low 24-31 Calcium 9.7 mg/dL 8.5-10.6 GFR 67 ML/MIN/1.73SQM >[address] Andrew Juares. Ort ho Phone - [phone] Fax [phone] NORMAL PATIENT CONTR OL IS 11.5 [...] Diastolic BP <80 mmHg C ompleted 10/31/2023 40128 Venipuncture Routine Complet ed 10/31/2023 3074F PVRP Systolic BP <130 mmHg C ompleted 10/17/2023 65235 Venipuncture Routine Complet ed 10/13/2023 55721305 Mammogram Completed 10/10/2023 83468 Venipuncture Routine Complet ed 09/12/2023 G0283 Electrical Stimulation as Th erapy Plan Of Care Completed 09/12/2023 30462 Therapeutic Activities Direc t, Each 15 Minutes Completed 09/12/2023 64629 Therapeutic Procedure Group Completed 09/12/2023 15112 Manual Leather Fitter 1/> Area 15 Min Each Region Completed 09/12/2023 63456 Therapy Proc, Neuromuscular Reeducation Of Movement Completed 09/12/2023 52122 Hot/Cold Pack Completed 09/10/2023 G0283 Electrical Stimulation as Th erapy Plan Of Care Completed 09/10/2023 97503 Hot/Cold Pack Completed 09/10/2023 28351 Therapy Proc, Neuromuscular Reeducation Of Movement Completed 09/10/2023 66842 Manual Leather Fitter 1/> Area 15 Min Each Region Completed 09/10/2023 42259 Therapeutic Procedure Group Completed 09/10/2023 03378 Therapeutic Activities Direc t, Each 15 Minutes Completed 09/08/2023 44673 Hot/Cold Pack Completed 09/08/2023 67680 Therapy Proc, Neuromuscular Reeducation Of Movement Completed 09/08/2023 19727 Therapeutic Procedure Group Completed 09/08/2023 28534 Therapeutic Activities Direc t, Each 15 Minutes Completed 09/08/2023 G028 Electrical Stimulation as Th erapy Plan Of Care Completed 09/08/2023 20696 Manual Leather Fitter 1/> Area 15 Min Each Region Completed 09/03/2023 G0283 Electrical Stimulation as Th erapy Plan Of Care Completed 09/03/2023 53625 Therapeutic Procedure Group Completed 09/03/2023 77392 Manual Leather Fitter 1/> Area 15 Min Each Region Completed 09/03/2023 51874 Therapy Proc, Neuromuscular Reeducation Of Movement Completed 09/03/2023 91236 Hot/Cold Pack Completed 09/01/2023 06283 Manual Leather Fitter 1/> Area 15 Min Each Region Completed 09/01/2023 01733 Hot/Cold Pack Completed 09/01/2023 39249 Therapy Proc, Neuromuscular Reeducation Of Movement Completed 09/01/2023 30188 Therapeutic Procedure Group Completed 09/01/2023 27525 Therapeutic Activities Direc t, Each 15 Minutes Completed 09/01/2023 G0283 Electrical Stimulation as Th erapy Plan Of Care Completed 08/27/2023 G0283 Electrical Stimulation as Th erapy Plan Of Care Completed 08/27/2023 01054 Therapeutic Activities Direc t, Each 15 Minutes Completed 08/27/2023 51557 Therapeutic Procedure Group Completed 08/27/2023 43457 Manual Leather Fitter 1/> Area 15 Min Each Region Completed 08/27/2023 03798 Therapy Proc, Neuromuscular Reeducation Of Movement Completed 08/27/2023 98015 Hot/Cold Pack Completed 08/26/2023 43102 Hot/Cold Pack Completed 08/26/2023 55388 Therapy Proc 1/> Area 15Min Ea Completed 08/26/2023 40978 Manual Leather Fitter 1/> Area 15 Min Each Region Completed 08/26/2023 02527 Therapy Proc, Neuromuscular Reeducation Of Movement Completed 08/26/2023 G0283 Electrical Stimulation as Th erapy Plan Of Care Completed 08/26/2023 45690 Therapeutic Activities Direc t, Each 15 Minutes Completed 08/25/2023 13659 Therapeutic Procedure Group Completed 08/25/2023 92975 Manual Leather Fitter 1/> Area 15 Min Each Region Completed 08/25/2023 27427 Therapy Proc, Neuromuscular Reeducation Of Movement Completed 08/25/2023 52522 Therapy Proc 1/> Area 15Min Ea Completed 08/25/2023 90469 Hot/Cold Pack Completed 08/25/2023 G0283 Electrical Stimulation as Th erapy Plan Of Care Completed 08/22/2023 80304 Therapy Proc 1/> Area 15Min Ea Completed 08/22/2023 96925 Hot/Cold Pack Completed 08/22/2023 36103 Therapy Proc, Neuromuscular Reeducation Of Movement Completed 08/22/2023 72547 Manual Leather Fitter 1/> Area 15 Min Each Region Completed 08/22/2023 83301 Therapeutic Procedure Group Completed 08/22/2023 G0283 Electrical Stimulation as Th erapy Plan Of Care Completed 08/20/2023 G0283 Electrical Stimulation as Th erapy Plan Of Care Completed 08/20/2023 53253 Manual Leather Fitter 1/> Area 15 Min Each Region Completed 08/20/2023 03520 Therapy Proc, Neuromuscular Reeducation Of Movement Completed 08/20/2023 57747 Therapy Proc 1/> Area 15Min Ea Completed 08/20/2023 64632 Hot/Cold Pack Completed 08/18/2023 46562 Hot/Cold Pack Completed 08/18/2023 68262 Therapy Proc 1/> Area 15Min Ea Completed 08/18/2023 40244 Therapy Proc, Neuromuscular Reeducation Of Movement Completed 08/18/2023 84213 Therapeutic Procedure Group Completed 08/18/2023 G0283 Electrical Stimulation as Th erapy Plan Of Care Completed 08/18/2023 88720 Manual Leather Fitter 1/> Area 15 Min Each Region Completed 08/15/2023 G0283 Electrical Stimulation as Th erapy Plan Of Care Completed 08/15/2023 03877 Therapeutic Procedure Group Completed 08/15/2023 93096 Manual Leather Fitter 1/> Area 15 Min Each Region Completed 08/15/2023 07508 Therapy Proc, Neuromuscular Reeducation Of Movement Completed 08/15/2023 88452 Therapy Proc 1/> Area 15Min Ea Completed 08/15/2023 13817 Hot/Cold Pack Completed 08/14/2023 97103 Therapy Proc, Neuromuscular Reeducation Of Movement Completed 08/14/2023 04145 Hot/Cold Pack Completed 08/14/2023 85127 Therapy Proc 1/> Area 15Min Ea Completed 08/14/2023 16947 Manual Leather Fitter 1/> Area 15 Min Each Region Completed 08/14/2023 92562 Therapeutic Procedure Group Completed 08/14/2023 G0283 Electrical Stimulation as Th erapy Plan Of Care Completed 08/12/2023 32343 Physical Therapy Evaluation Low Complexity Completed 08/12/2023 31501 Manual Leather Fitter 1/> Area 15 Min Each Region Completed 08/12/2023 62949 Therapy Proc 1/> Area 15Min Ea Completed 07/28/2023 1111F D/C Medications Reconciled W/Current Medications In Outpt MR Completed 07/18/2023 46071 Venipuncture Routine Complet ed 09/05/2022 [id number] Bone Mineral Density Test Co mpleted 08/07/2018 51405376 Colonoscopy Completed Medical Devices Description No Information Available Encounters Type Date Location Provider Dx Diagnosis Office Visit 10/31/2023 11:00a [facility] E87.5 Hyperkalemia E55.9 Vitamin D deficiency , unspecified M81.0 Age-related osteopor osis w/o current pathological fracture L68.0 Hirsutism I10 Essential (primary) hypertension Office Visit 07/18/2023 9:00a [facility] Z01.818 Encounter for other preprocedural examination Office Visit 05/19/2023 10:45a [facility] Varghese op, QUIQUE M25.561 Pain in right [...] MD, PhD 10/17/2023 E87.5 Hyperkalemia Lab - [facility] 10/17/2023 Z78.9 Other specified health statu s Joy Juan MD, PhD 10/17/2023 Z78.9 Other specified health statu s [facility] - [facility] 10/17/2023 Z01.818 Encounter for ot her preprocedural examination Joy Juan MD, PhD 10/17/2023 Z01.818 Encounter for ot her preprocedural examination Lab - [facility] 10/10/2023 E66.01 Morbid (severe) obesity due to excess calories Joy Juan MD, PhD 10/10/2023 E66.01 Morbid (severe) obesity due to excess calories Lab - [facility] 10/10/2023 D47.3 Essential (hemorrhagic) thro mbocythemia Joy Juan MD, PhD 10/10/2023 D47.3 Essential (hemorrhagic) thro mbocythemia Lab - [facility] 10/10/2023 Z13.6 Encounter for nh reening for cardiovascular disorders Joy Juan MD, PhD 10/10/2023 Z13.6 Encounter for ketan chai for cardiovascular disorders Lab - [facility] 10/10/2023 E55.9 Vitamin D deficiency, unspec ified Joy Juan MD, PhD 10/10/2023 E55.9 Vitamin D deficiency, unspec ified Lab - [facility] 10/10/2023 Z78.9 Other specified health statu s Joy Juan MD, PhD 10/10/2023 E83.51 Hypocalcemia Lab - [facility] 10/10/2023 Z78.9 Other specified health statu s [facility] - [facility] 09/12/2023 M25.561 Pain in right knee Jcarlos [...] follow ing joint replacement surgery Jordan Villareal [place], DPT 08/25/2023 M25.561 Pain in right knee [...] Treatment Future Appointment(s):* 05/07/2024 8:00 am - [facility] * 04/30/2024 6:45 am - Lab - [facility] 10/31/2023 - [facility]* E87.5 Hyperkalemia* Comments:* repeat today * E55.9 [...]
--- OUTSIDE RECORDS SUMMARY | 2023-11-04 15:44 | External Medical Summary ---
Author Name Unknown Address Unknown Organization [facility] [address] [place] [id number] Laboratory Report Ordering Provider Test Date Status KODAK ALEMAN 10/17/2023 06:39 Final Observation Date Value Abnormality Reference (Units ) Status Glucose 10/17/2023 10:17 103 70-110 (MG/DL ) Final BUN 10/17/2023 10:17 36 Above high normal 6-25 (MG/DL) Final Creatinine 10/17/2023 10:17 1.1 0.5-1.2 (MG/ DL) Final Sodium 10/17/2023 10:17 136 135-145 (MEQ/ L) Final Potassium 10/17/2023 10:17 5.3 Above high normal 3.5-5 .0 (MEQ/L) Final Cl 10/17/2023 10:17 103 95-107 (MEQ/L ) Final CO2 10/17/2023 10:17 24 24-31 (MEQ/L) Final Calcium 10/17/2023 10:17 9.8 8.5-10.6 (MG/ DL) Final GFR (estimated) 10/17/2023 10:17 53 Below low normal >60 (ML/MIN/1.73 SQM) Final Performing Location [facility] [address] [place] [address]
--- OUTSIDE RECORDS SUMMARY | 2023-11-04 15:44 | External Medical Summary | Continuity of Care Document ---
Author Name Unknown Organization [facility] er, Address [address] [place] [address] Phone [phone] Problems Description No Active Problems Social History Type Date Description Comments Sex Unknown Tobacco Use Reviewed: 05/19/23 Never Smoked Cigarette s Tobacco Use Reviewed: 05/19/23 Never Smoked Cigars Smoking Status Reviewed: 07/18/23 Never Smoked Cigars Tobacco Use Reviewed: 05/19/23 Never Smoked A Pipe Smokeless Tobacco 05/19/2023 Never Used Smokeless To bacco ETOH Use Occasionally consumes alcoho l Recreational Drug Use Denies Drug Use Allergies and adverse reactions Description No Known Drug Allergies Medications Active Medications SIG Qnty Indications Order ing Provider Date Oxycodone HCL5mg Tablets 1-2 tab every 6 hours as needed Andrew Juares MD 07/26/2023 [id number] Capsules 1 tablet by mouth twice a day Andrew Juares MD 07/26/2023 Zvfkmpfmbpl5md Tablets Dispers 1 tablet every 8 hours as needed for nausea Andrew Juares MD 07/26/2023 Ketorolac Jpdefzscuvni71pi Tablets 1 tablet by mouth three times a day Andrew Juares MD 07/26/2023 Diclofenac Sodium1% Gel apply 4 grams externally to right knee 4 times daily for pain 300gm M25.561 Jimy Casanova JR, DO 05/19/2023 Alendronate Gemkue78kq Tablets Take 1 Tablet Once Weekly 30 Minutes Before Breakfast With 8Oz Of Water. Remain Upright For 60 Minutes After Taking Medication. 12tabs [facility] 09/13/2022 Lqdokdwnqf58it Tablets Take 1 Tablet Daily 90tabs Joy dc MD, PhD 11/12/2019 Zmgkrwtyaefyfx30rn Tablets Take 1 Tablet Daily 90tabs YUE Davis 10/02/2018 Calcium + J7Ouvusiz 1 po qd Joy Juan MD, PhD Osteo Bi-Flex Regular Ejgeyyfp569-817te Tablets 2 in the in the morning Unknown Diclofenac Idgsic91ty Tablets DR 1 by mouth twice a day 90tabs [facility] Aspirin 81 Low Wqcd45zq Chewtabs 1 by mouth every day Unknown History Medications Uvayujoaoy76ab Tablets 4 tabs po qd x 2 days, 3 tabs po qd x 2 days, 2 tabs po qd x 2 days, 1 tab po qd x 2 days 20tabs M25.561 Jimy Casanova JR, DO 05/19/2023 - 05/27/2023 Immunizations CPT Code Status Date Vaccine Lot # [id number] Given 07/04/2023 Influenza Vaccine High Do se 0.5ML Age 65 & > 91421 Given 07/24/2022 Influenza Vaccine High Do se 0.5ML Age 65 & > [id number] 46463 Given 07/24/2022 Pneumococcal Conjugate-Pr evnar 20 [id number] 98337 Given 08/09/2021 Influenza Virus Vaccine, Quadrivalent (Cciiv4), Derived From Cell 05413 Given 03/27/2020 Shingrix 74651 Given 12/06/2019 Shingrix 52259 Given 08/05/2019 Influenza Vacci ne Quadrivalent Preser/Antibiotic [place] Use 31599 Given 11/03/2018 Tdap (Tetanus, diphtheria & acel. pertussis) Adacel or Boostrix 53474 Given 07/10/2018 Influenza Virus Vaccine, Quadrivalent, Im Use 26686 Given 08/07/2017 Influenza Virus Vaccine, Quadrivalent, Im Use 60941 Given 07/15/2016 Influenza Virus Vaccine, Quadrivalent, Im Use 94254 Given 06/29/2014 Influenza Vac, Split 3 Yr s And Up [id number] 55234 Given 06/07/2014 Zostavax Vaccine 05285 Given 07/28/2013 Influenza Vac, Split 3 Yr s And Up 59298 Given 07/24/2012 Pneumococcal Vaccine/Pneu movax 23 45921 Refused 01/23/2023 Moderna Sars-Co v-2 (Cov-19) vacc,100 mcg/ 0.5 mL 12Y+EMR Doc Only 37993 Refused 01/09/2022 Moderna Sars-Co v-2 (Cov-19) vacc,100 mcg/ 0.5 mL 12Y+EMR Doc Only 85568 Refused 12/26/2020 Moderna Sars-Co v-2 (Cov-19) vacc,100 mcg/ 0.5 mL 12Y+EMR Doc Only 89333 Refused 06/02/2020 Influenza Virus Vaccine, Quadrivalent, Im Use 72769 Refused 06/16/2019 Influenza Virus Vaccine, Quadrivalent, Im Use 86563 Refused 10/02/2018 Tdap (Tetanus, diphtheria & acel. pertussis) Adacel or Boostrix 96815 Refused 01/24/2016 Tetanus Toxoid 63443 Refused 01/24/2016 Influenza Virus Vaccine, Quadrivalent, Im Use 17881 Refused 01/04/2015 Tdap (Tetanus, diphtheria & acel. pertussis) Adacel or Boostrix Vital Signs Date Vital Result Comment 07/18/2023 9:07am BP Systolic 130 mmHg BP Diastolic 70 mmHg Body Temperature 97.9 F Heart Rate 72 /min Respiratory Rate 18 /min Weight 227.00 lb Weight 102.967 kg Height 61 inches 5'1" BMI (Body Mass Index) 42.9 kg/m2 [place] Body Weight 105 lb 05/19/2023 10:38am BP Systolic 120 mmHg BP Diastolic 76 mmHg Body Temperature 97.3 F Heart Rate 74 /min Respiratory Rate 18 /min Weight 223.38 lb Weight 101.323 kg Results Test Acquired Date Facility Test Result H/L Range N ote PT Inr PHARMACEUTICAL REPRESENTATIVE 10/17/2023 [facility] [address] [place], [place] [id number] [phone] PT 11.2 SEC 10.0-12.4 1, 2 Inr 1.0 RATIO Laboratory test finding 10/17/2023 [facility] [address] [place], [place] [id number] [phone] PTT 30.1 SEC 27.0-38.1 3 BMP 10/17/2023 [facility] [address] [place], [place] [id number] [phone] Glucose 103 mg/dL 70-110 BUN 36 mg/dL High 6-25 Creatinine 1.1 mg/dL 0.5-1.2 Sodium 136 mEq/L 135-145 Potassium 5.3 mEq/L High 3.5-5.0 Chloride 103 mEq/L 95-107 Co-2 24 mEq/L 24-31 Calcium 9.8 mg/dL 8.5-10.6 GFR 53 ML/MIN/1.73SQM Low >60 Comp. Met 10/10/2023 [facility] [address] [place], [place] [address] [phone] Glucose 110 mg/dL 70-110 BUN 22 mg/dL [...] 2.0-3.4 GFR 76 ML/MIN/1.73SQM >60 Lipid 10/10/2023 [facility] [address] [place] [address] [phone] Cholesterol 211 mg/dL High 0-200 4 Triglyceride 144 mg/dL 0-150 5 HDLD 61 mg/dL See Comment 6 Measured LDL 137 mg/dL High 0-130 7 Calc VLDL 28.8 mg/dL See Comment 8 Chol/HDL 3.5 RATIO See Comment 9 Non-HDL 150 mg/dL See Comment 10 CBC W/Diff 10/10/2023 [facility] [address] [place] [address] [phone] WBC 9.2 10^3/M3 3.1-9.2 RBC 4.49 10^6/M3 3.70-5.50 HGB 13.7 GR/DL 11.5-16.1 HCT 41.2 % 34.5-47.8 MCV 91.9 CUMICR 82.6-95.8 MCH 30.5 PICOGR 27.9-32.9 MCHC 33.2 % 32.6-35.4 RDW 14.6 % 11.4-14.6 PLT 452 10^3/M3 High 140-350 MPV 7.6 CUMICR 7.0-10.6 %Neut 65.5 % 40.0-75.0 %Lymph 22.6 % 17.0-45.0 %[place] 9.4 % 1.0-11.0 %Eos 1.4 % 0.0-6.0 %Baso 1.1 % 0.0-2.0 #Neut 6.0 10^3/M3 1.5-8.0 #Lymph 2.1 10^3/M3 0.8-3.2 #[place] 0.9 10^3/M3 High 0.0-0.8 #Eos 0.1 10^3/m3 0.0-0.4 #Baso 0.1 10^3/m3 0.0-0.2 Laboratory test finding 10/10/2023 [facility] [address] [place] [address] [phone] Vitd-25Oh 33 ng/mL 30-100 C-Reactive Prot 0.621 mg/dL 0.000-0.700 Sed Rate 8 0-20 BMP 07/18/2023 [facility] [address] [place], [place] [address] [phone] Glucose 115 mg/dL High 70-110 11 BUN 30 mg/dL High 6-25 Creatinine 0.9 mg/dL 0.5-1.2 Sodium 143 mEq/L 135-145 Potassium 4.9 mEq/L 3.5-5.0 Chloride 111 mEq/L High 95-107 Co-2 23 mEq/L Low 24-31 Calcium 9.7 mg/dL 8.5-10.6 GFR 67 ML/MIN/1.73SQM >[address] Andrew Juares. [place] Phone - [phone] Fax [phone] NORMAL PATIENT CONTR OL IS 11.5 [...] 07/18/23 [facility] Procedures Date Code Description Status 10/17/2023 32370 Venipuncture Routine Complet ed 10/13/2023 43489977 Mammogram Completed 10/10/2023 55413 Venipuncture Routine Complet ed 09/12/2023 G0283 Electrical Stimulation as Th erapy Plan Of Care Completed 09/12/2023 81536 Therapeutic Activities Direc t, Each 15 Minutes Completed 09/12/2023 52554 Therapeutic Procedure Group Completed 09/12/2023 81376 Manual Coagulating Bath Mixer 1/> Area 15 Min Each Region Completed 09/12/2023 07772 Therapy Proc, Neuromuscular Reeducation Of Movement Completed 09/12/2023 11138 Hot/Cold Pack Completed 09/10/2023 49627 Manual Coagulating Bath Mixer 1/> Area 15 Min Each Region Completed 09/10/2023 99473 Hot/Cold Pack Completed 09/10/2023 85638 Therapy Proc, Neuromuscular Reeducation Of Movement Completed 09/10/2023 40805 Therapeutic Procedure Group Completed 09/10/2023 39218 Therapeutic Activities Direc t, Each 15 Minutes Completed 09/10/2023 G0283 Electrical Stimulation as Th erapy Plan Of Care Completed 09/08/2023 G028 Electrical Stimulation as Th erapy Plan Of Care Completed 09/08/2023 57893 Therapeutic Activities Direc t, Each 15 Minutes Completed 09/08/2023 06125 Therapeutic Procedure Group Completed 09/08/2023 05950 Manual Coagulating Bath Mixer 1/> Area 15 Min Each Region Completed 09/08/2023 34746 Therapy Proc, Neuromuscular Reeducation Of Movement Completed 09/08/2023 48922 Hot/Cold Pack Completed 09/03/2023 83024 Therapy Proc, Neuromuscular Reeducation Of Movement Completed 09/03/2023 13065 Hot/Cold Pack Completed 09/03/2023 87545 Manual Coagulating Bath Mixer 1/> Area 15 Min Each Region Completed 09/03/2023 G0283 Electrical Stimulation as Th erapy Plan Of Care Completed 09/03/2023 40703 Therapeutic Procedure Group Completed 09/01/2023 G0283 Electrical Stimulation as Th erapy Plan Of Care Completed 09/01/2023 87298 Therapeutic Activities Direc t, Each 15 Minutes Completed 09/01/2023 85552 Therapeutic Procedure Group Completed 09/01/2023 51255 Manual Coagulating Bath Mixer 1/> Area 15 Min Each Region Completed 09/01/2023 90240 Therapy Proc, Neuromuscular Reeducation Of Movement Completed 09/01/2023 30376 Hot/Cold Pack Completed 08/27/2023 38744 Therapy Proc, Neuromuscular Reeducation Of Movement Completed 08/27/2023 19824 Hot/Cold Pack Completed 08/27/2023 06421 Manual Coagulating Bath Mixer 1/> Area 15 Min Each Region Completed 08/27/2023 72523 Therapeutic Procedure Group Completed 08/27/2023 85697 Therapeutic Activities Direc t, Each 15 Minutes Completed 08/27/2023 G028 Electrical Stimulation as Th erapy Plan Of Care Completed 08/26/2023 G028 Electrical Stimulation as Th erapy Plan Of Care Completed 08/26/2023 07858 Therapeutic Activities Direc t, Each 15 Minutes Completed 08/26/2023 37722 Manual Coagulating Bath Mixer 1/> Area 15 Min Each Region Completed 08/26/2023 42957 Therapy Proc, Neuromuscular Reeducation Of Movement Completed 08/26/2023 66385 Therapy Proc 1/> Area 15Min Ea Completed 08/26/2023 95704 Hot/Cold Pack Completed 08/25/2023 G028 Electrical Stimulation as Th erapy Plan Of Care Completed 08/25/2023 46150 Hot/Cold Pack Completed 08/25/2023 28061 Therapy Proc 1/> Area 15Min Ea Completed 08/25/2023 82216 Manual Coagulating Bath Mixer 1/> Area 15 Min Each Region Completed 08/25/2023 31741 Therapeutic Procedure Group Completed 08/25/2023 37273 Therapy Proc, Neuromuscular Reeducation Of Movement Completed 08/22/2023 G028 Electrical Stimulation as Th erapy Plan Of Care Completed 08/22/2023 03761 Therapeutic Procedure Group Completed 08/22/2023 58916 Manual Coagulating Bath Mixer 1/> Area 15 Min Each Region Completed 08/22/2023 84361 Therapy Proc, Neuromuscular Reeducation Of Movement Completed 08/22/2023 96510 Therapy Proc 1/> Area 15Min Ea Completed 08/22/2023 23609 Hot/Cold Pack Completed 08/20/2023 24604 Therapy Proc 1/> Area 15Min Ea Completed 08/20/2023 34508 Hot/Cold Pack Completed 08/20/2023 23256 Therapy Proc, Neuromuscular Reeducation Of Movement Completed 08/20/2023 89246 Manual Coagulating Bath Mixer 1/> Area 15 Min Each Region Completed 08/20/2023 G028 Electrical Stimulation as Th erapy Plan Of Care Completed 08/18/2023 G0283 Electrical Stimulation as Th erapy Plan Of Care Completed 08/18/2023 85068 Therapeutic Procedure Group Completed 08/18/2023 36816 Manual Coagulating Bath Mixer 1/> Area 15 Min Each Region Completed 08/18/2023 41475 Therapy Proc, Neuromuscular Reeducation Of Movement Completed 08/18/2023 05352 Therapy Proc 1/> Area 15Min Ea Completed 08/18/2023 09261 Hot/Cold Pack Completed 08/15/2023 G0283 Electrical Stimulation as Th erapy Plan Of Care Completed 08/15/2023 23601 Hot/Cold Pack Completed 08/15/2023 06889 Therapy Proc 1/> Area 15Min Ea Completed 08/15/2023 21071 Therapy Proc, Neuromuscular Reeducation Of Movement Completed 08/15/2023 75108 Manual Coagulating Bath Mixer 1/> Area 15 Min Each Region Completed 08/15/2023 28272 Therapeutic Procedure Group Completed 08/14/2023 G0283 Electrical Stimulation as Th erapy Plan Of Care Completed 08/14/2023 62554 Therapeutic Procedure Group Completed 08/14/2023 44173 Manual Coagulating Bath Mixer 1/> Area 15 Min Each Region Completed 08/14/2023 33159 Therapy Proc, Neuromuscular Reeducation Of Movement Completed 08/14/2023 47236 Therapy Proc 1/> Area 15Min Ea Completed 08/14/2023 93744 Hot/Cold Pack Completed 08/12/2023 29780 Physical Therapy Evaluation Low Complexity Completed 08/12/2023 19327 Manual Coagulating Bath Mixer 1/> Area 15 Min Each Region Completed 08/12/2023 51593 Therapy Proc 1/> Area 15Min Ea Completed 07/28/2023 1111F D/C Medications Reconciled W/Current Medications In Outpt MR Completed 07/18/2023 21840 Venipuncture Routine Complet ed 09/05/2022 [id number] Bone Mineral Density Test Co mpleted 08/07/2018 [id number] Colonoscopy Completed Medical Devices Description No Information Available Encounters Type Date Location Provider Dx Diagnosis Office Visit 07/18/2023 9:00a [facility] Z01.818 Encounter for other preprocedural examination Office Visit 05/19/2023 10:45a Maggy Gee PA-C M25.561 Pain in right knee M17.0 Bilateral primary os teoarthritis of knee Assessments Date Code Description Provider 10/17/2023 E87.5 Hyperkalemia Joy Juan MD, PhD 10/17/2023 E87.5 Hyperkalemia Lab - [place] [facility] 10/17/2023 Z78.9 Other specified health statu s Joy Juan MD, PhD 10/17/2023 Z78.9 Other specified health statu s Lab - [place] 10/17/2023 Z01.818 Encounter for ot her preprocedural examination Joy Juan MD, PhD 10/17/2023 Z01.818 Encounter for ot her preprocedural examination Lab - [place] 10/10/2023 E66.01 Morbid (severe) obesity due to excess calories Joy Juan MD, PhD 10/10/2023 E66.01 Morbid (severe) obesity due to excess calories Lab - [place] 10/10/2023 D47.3 Essential (hemorrhagic) thro mbocythemia Joy Juan MD, PhD 10/10/2023 D47.3 Essential (hemorrhagic) thro mbocythemia Lab - [place] 10/10/2023 Z13.6 Encounter for sc reening for cardiovascular disorders Joy Juan MD, PhD 10/10/2023 Z13.6 Encounter for sc reening for cardiovascular disorders Lab - [place] 10/10/2023 E55.9 Vitamin D deficiency, unspec ified Joy Juan MD, PhD 10/10/2023 E55.9 Vitamin D deficiency, unspec ified Lab - [place] 10/10/2023 Z78.9 Other specified health statu s Joy Juan MD, PhD 10/10/2023 E83.51 Hypocalcemia Lab - [place] [facility] 10/10/2023 Z78.9 Other specified health statu s Lab - [place] 09/12/2023 M25.561 Pain in right knee Jcarlos Bailey, DPT 09/12/2023 Z47.1 Aftercare follow ing joint replacement surgery Jcarlos Bailey, DPT 09/10/2023 M25.561 Pain in right knee Jordan mullins, DPT 09/10/2023 Z47.1 Aftercare follow ing joint replacement surgery Jordan Gary, DPT 09/08/2023 M25.561 Pain in right knee Jordan mullins, DPT 09/08/2023 Z47.1 Aftercare follow ing joint replacement surgery Jordan Gary, DPT 09/05/2023 M25.561 Pain in right knee Jordan mullins, DPT 09/05/2023 Z47.1 Aftercare follow ing joint replacement surgery Jordan Gary, DPT 09/03/2023 M25.561 Pain in right knee Jordan mullins, DPT 09/03/2023 Z47.1 Aftercare follow ing joint replacement surgery Jordan Gary, DPT 09/01/2023 M25.561 Pain in right knee Jordan mullins, DPT 09/01/2023 Z47.1 Aftercare follow ing joint replacement surgery Jordan Gary, DPT 08/27/2023 M25.561 Pain in right knee Jcarlos Bailey, DPT 08/27/2023 Z47.1 Aftercare follow ing joint replacement surgery Jcarlos Bailey, DPT 08/26/2023 M25.561 Pain in right knee Jordan mullins, DPT 08/26/2023 Z47.1 Aftercare follow ing joint replacement surgery Jordan Gary, DPT 08/25/2023 M25.561 Pain in right knee [...] 08/14/2023 M25.561 Pain in right knee Jordan mullins, DPT 08/14/2023 Z47.1 Aftercare follow ing joint replacement surgery Jordan Gary, DPT 08/12/2023 M25.561 Pain in right knee Jordan mullins, DPT 08/12/2023 Z47.1 Aftercare follow ing joint replacement surgery Jordan Gary, DPT 07/28/2023 M17.0 Bilateral primary osteoarthr itis of knee Joy Juan MD, PhD 07/18/2023 Z01.818 Encounter for ot her preprocedural examination [facility] 05/19/2023 M25.561 Pain in right knee Mushtaq elizabeth PA-C 05/19/2023 M17.0 Bilateral primary osteoarthr itis of knee Mushtaq Gee PA-C Plan of Treatment Future Appointment(s):* 10/31/2023 11:00 am - [facility] at [place] 07/18/2023 - [facility]* Z01.818 Encounter for other preprocedural examination* Comments:* - repeat BMP. Will send stat in case still elevated and needs repeated again prior to surgery. Creatinine likely elevated due to minimal water intake + anti-inflammatory use. - medically optimized for surgery Functional Status Description No Information Available Mental Status Description No Information Available Referrals Description No Information Available
--- OUTSIDE RECORDS SUMMARY | 2023-11-04 15:44 | External Medical Summary | Continuity of Care Document ---
Author Name Unknown Organization [place] Address [address] [facility], [place] [address] Phone [phone] Problems Description No Active Problems Social History [...] hours as needed Andrew Juares MD 07/26/2023 [id number] Capsules 1 tablet by mouth twice a day Andrew Juares MD 07/26/2023 Tbthvanpltf5tb Tablets Dispers 1 tablet every 8 hours as needed for nausea Andrew Juares MD 07/26/2023 Ketorolac Iluijxdrikpv06wl Tablets 1 tablet by mouth three times a day Andrew Juares MD 07/26/2023 Diclofenac Sodium1% Gel apply 4 grams externally to right knee 4 times daily for pain 300gm M25.561 Jimy Casanova JR, DO 05/19/2023 Alendronate Todjqn91om Tablets Take 1 Tablet Once Weekly 30 Minutes Before Breakfast With 8Oz Of Water. Remain Upright For 60 Minutes After Taking Medication. 12tabs [facility] 09/13/2022 Ytdrmbngma87vk Tablets Take 1 Tablet Daily 90tabs Joy dc MD, PhD 11/12/2019 Lxxcyzmnxeuezq78lf Tablets Take 1 Tablet Daily 90tabs YUE Davis 10/02/2018 Calcium + T3Tnknzzr 1 po qd Joy Juan MD, PhD Osteo Bi-Flex Regular Guzmxsfy247-546ym Tablets 2 in the in the morning Unknown Diclofenac Yebbkw54en Tablets DR 1 by mouth twice a day 90tabs [facility] Aspirin 81 Low Xsmz83jf Chewtabs 1 by mouth every day Unknown History Medications Krwbqpxyak55nd Tablets 4 tabs po qd x 2 days, 3 tabs po qd x 2 days, 2 tabs po qd x 2 days, 1 tab po qd x 2 days 20tabs M25.561 Jimy Casanova JR, DO 05/19/2023 - 05/27/2023 Immunizations CPT Code Status Date Vaccine Lot # [id number] Given 07/04/2023 Influenza Vaccine High Do se 0.5ML Age 65 & > 80769 Given 07/24/2022 Influenza Vaccine High Do se 0.5ML Age 65 & > [id number] 08591 Given 07/24/2022 Pneumococcal Conjugate-Pr evnar 20 [id number] 58265 Given 08/09/2021 Influenza Virus Vaccine, Quadrivalent (Cciiv4), Derived From Cell 42265 Given 03/27/2020 Shingrix 79635 Given 12/06/2019 Shingrix 53209 Given 08/05/2019 Influenza Vacci ne Quadrivalent Preser/[place] [address] Given 11/03/2018 Tdap (Tetanus, diphtheria & acel. pertussis) Adacel or Boostrix 00167 Given 07/10/2018 Influenza Virus Vaccine, Quadrivalent, Im Use 25543 Given 08/07/2017 Influenza Virus Vaccine, Quadrivalent, Im Use 76653 Given 07/15/2016 Influenza Virus Vaccine, Quadrivalent, Im Use 28970 Given 06/29/2014 Influenza Vac, Split 3 Yr s And Up [id number] 26062 Given 06/07/2014 Zostavax Vaccine 93891 Given 07/28/2013 Influenza Vac, Split 3 Yr s And Up 31597 Given 07/24/2012 Pneumococcal Vaccine/Pneu movax 23 77261 Refused 01/23/2023 Moderna Sars-Co v-2 (Cov-19) vacc,100 mcg/ 0.5 mL 12Y+EMR Doc Only 40812 Refused 01/09/2022 Moderna Sars-Co v-2 (Cov-19) vacc,100 mcg/ 0.5 mL 12Y+EMR Doc Only [id number] Refused 12/26/2020 Moderna Sars-Co v-2 (Cov-19) vacc,100 mcg/ 0.5 mL 12Y+EMR Doc Only 46437 Refused 06/02/2020 Influenza Virus Vaccine, Quadrivalent, Im Use 38081 Refused 06/16/2019 Influenza Virus Vaccine, Quadrivalent, Im Use 16069 Refused 10/02/2018 Tdap (Tetanus, diphtheria & acel. pertussis) Adacel or Boostrix 83170 Refused 01/24/2016 Tetanus Toxoid 27977 Refused 01/24/2016 Influenza Virus Vaccine, Quadrivalent, Im Use 46923 Refused 01/04/2015 Tdap (Tetanus, diphtheria & acel. [...] 5'1" BMI (Body Mass Index) 42.9 kg/m2 Big [place] Body Weight 105 lb Results Test Acquired Date Facility Test Result H/L Range N ote BMP 10/31/2023 [facility]. [address] [place] [address] [phone] Glucose 93 mg/dL 70-110 BUN 29 mg/dL High 6-25 Creatinine 1.1 mg/dL 0.5-1.2 Sodium 140 mEq/L 135-145 Potassium 5.2 mEq/L High 3.5-5.0 Chloride 105 mEq/L 95-107 Co-2 21 mEq/L Low 24-31 Calcium 9.7 mg/dL 8.5-10.6 GFR 53 ML/MIN/1.73SQM Low >60 PT Inr UNDER SHERIFF 10/17/2023 [facility]. [address] [place] [address] [phone] PT 11.2 SEC 10.0-12.4 1, 2 Inr 1.0 RATIO Laboratory test finding 10/17/2023 [facility]. [address] [place] [address] [phone] PTT 30.1 SEC 27.0-38.1 3 BMP 10/17/2023 [facility]. [address] [place] [address] [phone] Glucose 103 mg/dL 70-110 BUN 36 mg/dL High 6-25 Creatinine 1.1 mg/dL 0.5-1.2 Sodium 136 mEq/L 135-145 Potassium 5.3 mEq/L High 3.5-5.0 Chloride 103 mEq/L 95-107 Co-2 24 mEq/L 24-31 Calcium 9.8 mg/dL 8.5-10.6 GFR 53 ML/MIN/1.73SQM Low >60 Comp. Met 10/10/2023 [facility]. [address] [place] [address] [phone] Glucose 110 mg/dL 70-110 BUN 22 mg/dL [...] 2.0-3.4 GFR 76 ML/MIN/1.73SQM >60 Lipid 10/10/2023 [facility]. [address] [place], [place] [address] [phone] Cholesterol 211 mg/dL High 0-200 4 Triglyceride 144 mg/dL 0-150 5 HDLD 61 mg/dL See Comment 6 Measured LDL 137 mg/dL High 0-130 7 Calc VLDL 28.8 mg/dL See Comment 8 Chol/HDL 3.5 RATIO See Comment 9 Non-HDL 150 mg/dL See Comment 10 CBC W/Diff 10/10/2023 [facility]. [address] [place] [address] [phone] WBC 9.2 10^3/M3 3.1-9.2 RBC 4.49 10^6/M3 3.70-5.50 HGB 13.7 GR/DL 11.5-16.1 HCT 41.2 % 34.5-47.8 MCV 91.9 CUMICR 82.6-95.8 MCH 30.5 PICOGR 27.9-32.9 MCHC 33.2 % 32.6-35.4 RDW 14.6 % 11.4-14.6 PLT 452 10^3/M3 High 140-350 MPV 7.6 CUMICR 7.0-10.6 %Neut 65.5 % 40.0-75.0 %Lymph 22.6 % 17.0-45.0 %Brooke 9.4 % 1.0-11.0 %Eos 1.4 % 0.0-6.0 %Baso 1.1 % 0.0-2.0 #Neut 6.0 10^3/M3 1.5-8.0 #Lymph 2.1 10^3/M3 0.8-3.2 #Brooke 0.9 10^3/M3 High 0.0-0.8 #Eos 0.1 10^3/m3 0.0-0.4 #Baso 0.1 10^3/m3 0.0-0.2 Laboratory test finding 10/10/2023 [facility]. [address] [place] [address] [phone] Vitd-25Oh 33 ng/mL 30-100 C-Reactive Prot 0.621 mg/dL 0.000-0.700 Sed Rate 8 0-20 BMP 07/18/2023 [facility]. [address] [place] [address] [phone] Glucose 115 mg/dL High 70-110 11 BUN 30 mg/dL High 6-25 Creatinine 0.9 mg/dL 0.5-1.2 Sodium 143 mEq/L 135-145 Potassium 4.9 mEq/L 3.5-5.0 Chloride 111 mEq/L High 95-107 Co-2 23 mEq/L Low 24-31 Calcium 9.7 mg/dL 8.5-10.6 GFR 67 ML/MIN/1.73SQM >[address] Andrew Juares. [place] Phone - [phone] Fax [phone] NORMAL PATIENT CONTR OL IS 11.5 [...] Diastolic BP <80 mmHg C ompleted 10/31/2023 40635 Venipuncture Routine Complet ed 10/31/2023 3074F PVRP Systolic BP <130 mmHg C ompleted 10/17/2023 39581 Venipuncture Routine [facility] ed 10/13/2023 [id number] Mammogram Completed 10/10/2023 56850 Venipuncture Routine [facility] ed 09/12/2023 G0283 Electrical Stimulation as Th erapy Plan Of Care Completed 09/12/2023 22229 Therapeutic Activities Direc t, Each 15 Minutes Completed 09/12/2023 34109 Therapeutic Procedure Group Completed 09/12/2023 28777 Manual Merchandiser 1/> Area 15 Min Each Region Completed 09/12/2023 92358 Therapy Proc, Neuromuscular Reeducation Of Movement Completed 09/12/2023 01153 Hot/Cold Pack Completed 09/10/2023 G0283 Electrical Stimulation as Th erapy Plan Of Care Completed 09/10/2023 46186 Hot/Cold Pack Completed 09/10/2023 99984 Therapy Proc, Neuromuscular Reeducation Of Movement Completed 09/10/2023 98007 Manual Merchandiser 1/> Area 15 Min Each Region Completed 09/10/2023 14587 Therapeutic Procedure Group Completed 09/10/2023 09654 Therapeutic Activities Direc t, Each 15 Minutes Completed 09/08/2023 94472 Hot/Cold Pack Completed 09/08/2023 72669 Therapy Proc, Neuromuscular Reeducation Of Movement Completed 09/08/2023 42116 Therapeutic Procedure Group Completed 09/08/2023 96301 Therapeutic Activities Direc t, Each 15 Minutes Completed 09/08/2023 G0283 Electrical Stimulation as Th erapy Plan Of Care Completed 09/08/2023 27300 Manual Merchandiser 1/> Area 15 Min Each Region Completed 09/03/2023 G0283 Electrical Stimulation as Th erapy Plan Of Care Completed 09/03/2023 57921 Therapeutic Procedure Group Completed 09/03/2023 46421 Manual Merchandiser 1/> Area 15 Min Each Region Completed 09/03/2023 75374 Therapy Proc, Neuromuscular Reeducation Of Movement Completed 09/03/2023 13021 Hot/Cold Pack Completed 09/01/2023 25834 Manual Merchandiser 1/> Area 15 Min Each Region Completed 09/01/2023 90646 Hot/Cold Pack Completed 09/01/2023 76541 Therapy Proc, Neuromuscular Reeducation Of Movement Completed 09/01/2023 85996 Therapeutic Procedure Group Completed 09/01/2023 41204 Therapeutic Activities Direc t, Each 15 Minutes Completed 09/01/2023 G028 Electrical Stimulation as Th erapy Plan Of Care Completed 08/27/2023 G028 Electrical Stimulation as Th erapy Plan Of Care Completed 08/27/2023 71771 Therapeutic Activities Direc t, Each 15 Minutes Completed 08/27/2023 82274 Therapeutic Procedure Group Completed 08/27/2023 82900 Manual Merchandiser 1/> Area 15 Min Each Region Completed 08/27/2023 11060 Therapy Proc, Neuromuscular Reeducation Of Movement Completed 08/27/2023 04781 Hot/Cold Pack Completed 08/26/2023 56593 Hot/Cold Pack Completed 08/26/2023 49263 Therapy Proc 1/> Area 15Min Ea Completed 08/26/2023 90528 Manual Merchandiser 1/> Area 15 Min Each Region Completed 08/26/2023 99010 Therapy Proc, Neuromuscular Reeducation Of Movement Completed 08/26/2023 G03 Electrical Stimulation as Th erapy Plan Of Care Completed 08/26/2023 83798 Therapeutic Activities Direc t, Each 15 Minutes Completed 08/25/2023 47887 Therapeutic Procedure Group Completed 08/25/2023 96365 Manual Merchandiser 1/> Area 15 Min Each Region Completed 08/25/2023 30238 Therapy Proc, Neuromuscular Reeducation Of Movement Completed 08/25/2023 38836 Therapy Proc 1/> Area 15Min Ea Completed 08/25/2023 38084 Hot/Cold Pack Completed 08/25/2023 G0283 Electrical Stimulation as Th erapy Plan Of Care Completed 08/22/2023 78676 Therapy Proc 1/> Area 15Min Ea Completed 08/22/2023 19191 Hot/Cold Pack Completed 08/22/2023 77455 Therapy Proc, Neuromuscular Reeducation Of Movement Completed 08/22/2023 53047 Manual Merchandiser 1/> Area 15 Min Each Region Completed 08/22/2023 96806 Therapeutic Procedure Group Completed 08/22/2023 G028 Electrical Stimulation as Th erapy Plan Of Care Completed 08/20/2023 G028 Electrical Stimulation as Th erapy Plan Of Care Completed 08/20/2023 50926 Manual Merchandiser 1/> Area 15 Min Each Region Completed 08/20/2023 26497 Therapy Proc, Neuromuscular Reeducation Of Movement Completed 08/20/2023 01029 Therapy Proc 1/> Area 15Min Ea Completed 08/20/2023 51543 Hot/Cold Pack Completed 08/18/2023 91732 Hot/Cold Pack Completed 08/18/2023 82176 Therapy Proc 1/> Area 15Min Ea Completed 08/18/2023 66144 Therapy Proc, Neuromuscular Reeducation Of Movement Completed 08/18/2023 10092 Therapeutic Procedure Group Completed 08/18/2023 G0 Electrical Stimulation as Th erapy Plan Of Care Completed 08/18/2023 97070 Manual Merchandiser 1/> Area 15 Min Each Region Completed 08/15/2023 G028 Electrical Stimulation as Th erapy Plan Of Care Completed 08/15/2023 96212 Therapeutic Procedure Group Completed 08/15/2023 01198 Manual Merchandiser 1/> Area 15 Min Each Region Completed 08/15/2023 46885 Therapy Proc, Neuromuscular Reeducation Of Movement Completed 08/15/2023 16090 Therapy Proc 1/> Area 15Min Ea Completed 08/15/2023 43830 Hot/Cold Pack Completed 08/14/2023 64146 Therapy Proc, Neuromuscular Reeducation Of Movement Completed 08/14/2023 25415 Hot/Cold Pack Completed 08/14/2023 61330 Therapy Proc 1/> Area 15Min Ea Completed 08/14/2023 69133 Manual Merchandiser 1/> Area 15 Min Each Region Completed 08/14/2023 61620 Therapeutic Procedure Group Completed 08/14/2023 G028 Electrical Stimulation as Th erapy Plan Of Care Completed 08/12/2023 82434 Physical Therapy Evaluation Low Complexity Completed 08/12/2023 08855 Manual Merchandiser 1/> Area 15 Min Each Region Completed 08/12/2023 16663 Therapy Proc 1/> Area 15Min Ea Completed 07/28/2023 1111F D/C Medications Reconciled W/Current Medications In Outpt MR Completed 07/18/2023 59330 Venipuncture Routine Complet ed 09/05/2022 [id number] Bone Mineral Density Test Co mpleted 08/07/2018 [id number] Colonoscopy Completed Medical Devices Description No Information Available Encounters Type Date Location Provider Dx Diagnosis Office Visit 10/31/2023 11:00a [facility] E87.5 Hyperkalemia E55.9 Vitamin D deficiency , unspecified M81.0 Age-related osteopor osis w/o current pathological fracture L68.0 Hirsutism I10 Essential (primary) hypertension Office Visit 07/18/2023 9:00a [facility] [place] Z01.818 Encounter for other preprocedural examination Office Visit 05/19/2023 10:45a Maggy Varghese op, PA-C M25.561 Pain in right knee M17.0 [...] MD, PhD 10/17/2023 E87.5 Hyperkalemia Lab - [facility] 10/17/2023 Z78.9 Other specified health statu s Joy Juan MD, PhD 10/17/2023 Z78.9 Other specified health statu s Lab - [place] 10/17/2023 Z01.818 Encounter for ot her preprocedural examination Joy Juan MD, PhD 10/17/2023 Z01.818 Encounter for ot her preprocedural examination Lab - [place] 10/10/2023 E66.01 Morbid (severe) obesity due to excess calories Joy Juan MD, PhD 10/10/2023 E66.01 Morbid (severe) obesity due to excess calories Lab - [place] 10/10/2023 D47.3 Essential (hemorrhagic) thro mbocythemia Joy Juan MD, PhD 10/10/2023 D47.3 Essential (hemorrhagic) thro mbocythemia Lab - [place] 10/10/2023 Z13.6 Encounter for sc reening for cardiovascular disorders Joy Juan MD, PhD 10/10/2023 Z13.6 Encounter for sc reening for cardiovascular disorders Lab - [place] 10/10/2023 E55.9 Vitamin D deficiency, unspec ified Joy Juan MD, PhD 10/10/2023 E55.9 Vitamin D deficiency, unspec ified Lab - [place] 10/10/2023 Z78.9 Other specified health statu s Joy Juan MD, PhD 10/10/2023 E83.51 Hypocalcemia Lab - [facility] 10/10/2023 Z78.9 Other specified health statu s Lab - [place] 09/12/2023 M25.561 Pain in right knee Jcarlos [...] Aftercare follow ing joint replacement surgery Jordan Mcallisterson, DPT 07/28/2023 M17.0 Bilateral primary osteoarthr itis of knee Joy Juan MD, PhD 07/18/2023 Z01.818 Encounter for ot her preprocedural examination [facility] 05/19/2023 M25.561 Pain in right knee Mushtaq elizabeth PA-C 05/19/2023 M17.0 Bilateral primary osteoarthr itis of knee Mushtaq Gee PA-C Plan of Treatment Future Appointment(s):* 05/07/2024 8:00 am - [facility] at [place] * 04/30/2024 6:45 am - Lab - [place] [facility] [place] 10/31/2023 - [facility]* E87.5 Hyperkalemia* Comments:* [...]
--- OUTSIDE RECORDS SUMMARY | 2023-11-04 15:44 | External Medical Summary ---
Author Name Unknown Address Unknown Organization [facility]:[place] [address] [place] [address] Laboratory Report Ordering Provider Test Date Status null,[facility] MACHINE OPERATOR GENERAL 10/17/2023 06:42 Final Observation Date Value Abnormality Reference (Units ) Status Prothrombin time (PT) in Blood by Coagulation assay 10/17/2023 09:36 11.2 10.0-12.4 (SEC) Final
NORMAL PATIENT CONTROL IS 11.5

INR REFERENCE RANGES:

PROPHYLAXIS IN CARDIC DISEASE 2.0-3.0
PROSTHETIC HEART VALVE 3.0-4.5
RECURRENT EMBOLISM 3.0- 4.5
PROPHLAXIS IN HIGH RISK SURGERY 2.0-2.5
TREATMENT IN PULMONARY EMBOLIS 2.0-3.0

null INR 10/17/2023 09:36 1.0 (RATIO) Panda ks Performing Location [place] [address] [place] [id number]
--- OUTSIDE RECORDS SUMMARY | 2023-11-04 15:44 | External Medical Summary ---
Author Name Unknown Address Unknown Organization K1C:[facility] [address] [place] [address] Laboratory Report Ordering Provider Test Date Status NEETA VELOZ 10/31/2023 11:25 Final Observation Date Value Abnormality Reference (Units ) Status Glucose 10/31/2023 15:31 93 70-110 (MG/DL ) Final BUN 10/31/2023 15:31 29 Above high normal 6-25 (MG/DL) Final Creatinine 10/31/2023 15:31 1.1 0.5-1.2 (MG/ DL) Final Sodium 10/31/2023 15:31 140 135-145 (MEQ/ L) Final Potassium 10/31/2023 15:31 5.2 Above high normal 3.5-5 .0 (MEQ/L) Final Cl 10/31/2023 15:31 105 95-107 (MEQ/L ) Final CO2 10/31/2023 15:31 21 Below low normal 24-31 (MEQ/L) Final Calcium 10/31/2023 15:31 9.7 8.5-10.6 (MG/ DL) Final GFR (estimated) 10/31/2023 15:31 53 Below low normal >60 (ML/MIN/1.73 SQM) Final Performing Location [facility] [address] [place] [address]
--- OUTSIDE RECORDS SUMMARY | 2023-11-04 15:45 | External Medical Summary ---
Author Name Unknown Address Unknown Organization K1C:[facility] [address] [place] [address] Laboratory Report Ordering Provider Test Date Status IRVING PORTER 10/10/2023 07:52 Final Observation Date Value Abnormality Reference (Units ) Status 25-OH Vitamin D total 10/10/2023 14:52 33 3 0-100 (ng/mL) Final Performing Location [facility] [address] [place] [address]
--- OUTSIDE RECORDS SUMMARY | 2023-11-04 15:45 | External Medical Summary ---
Author Name Unknown Address Unknown Organization [facility]:[address] [place] [address] Laboratory Report Ordering Provider Test Date Status IRVING PORTER 10/10/2023 07:52 Final Observation Date Value Abnormality Reference (Units ) Status WBC 10/10/2023 14:13 9.2 3.1-9.2 (10^3/M3) Final RBC 10/10/2023 14:13 4.49 3.70-5.50 (10^6/M3) Final Hemoglobin 10/10/2023 14:13 13.7 11.5-16.1 (GR/DL) Final HCT 10/10/2023 14:13 41.2 34.5-47.8 (%) Final MCV 10/10/2023 14:13 91.9 82.6-95.8 (CU MICR) Final MCH 10/10/2023 14:13 30.5 27.9-32.9 (KAROLYN GR) Final MCHC 10/10/2023 14:13 33.2 32.6-35.4 (%) Final RDW 10/10/2023 14:13 14.6 11.4-14.6 (%) Final PLT 10/10/2023 14:13 452 Above high normal 140-350 (10^3/M3) Final MPV 10/10/2023 14:13 7.6 7.0-10.6 (CU MICR) Final Neutrophils/100 leukocytes in Blood 10/10/2023 14:13 65.5 40.0-75.0 (%) Final Lymphs % 10/10/2023 14:13 22.6 17.0-45.0 (%) Final Monos 10/10/2023 14:13 9.4 1.0-11.0 (%) Final %EOS 10/10/2023 14:13 1.4 0.0-6.0 (%) Final Basos 10/10/2023 14:13 1.1 0.0-2.0 (%) Final Neutrophils [#/volume] in Semen by Manual count 10/10/2023 14:13 6.0 1.5-8.0 (10^3/M3) Final Lymphs % 10/10/2023 14:13 2.1 0.8-3.2 (10^3/M3) Final Monos 10/10/2023 14:13 0.9 Above high normal 0.0-0.8 (10^3/M3) Final #EOS 10/10/2023 14:13 0.1 0.0-0.4 (10^3/m3) Final #BASO 10/10/2023 14:13 0.1 0.0-0.2 (10^3/m3) Final Performing Location [facility] [address] [place] [address]
--- OUTSIDE RECORDS SUMMARY | 2023-11-04 15:45 | External Medical Summary ---
Author Name Unknown Address Unknown Organization K1C:[facility] [address] [place] [address] Laboratory Report Ordering Provider Test Date Status IRVING PORTER 10/10/2023 07:52 Final Observation Date Value Abnormality Reference (Units ) Status ESR 10/10/2023 16:04 8 0-20 Fin al Performing Location [facility] [address] [place] [address]
--- OUTSIDE RECORDS SUMMARY | 2023-11-04 15:45 | External Medical Summary ---
Author Name Unknown Address Unknown Organization [facility]:[address] [place] [address] Laboratory Report Ordering Provider Test Date Status IRVING PORTER 10/10/2023 07:52 Final Observation Date Value Abnormality Reference (Units ) Status Cholesterol 10/10/2023 14:52 211 Above high normal 0-2 00 (MG/DL) Final CHOLESTEROL
Less than 2 00mg/dl Low risk
201-239 mg/dl Borderline risk
Equal to or greater 240mg/dl High risk
CHOLESTEROL COMMENTS
REPORT FAXED TO DOCTOR, REQUESTED ON REQUISITION.10/10/23 Triglyceride 10/10/2023 14:52 144 0-150 (MG/ DL) Final TRIGLYCERIDES
Less than 150mg/dl Normal
150-199mg/dl Borderline
200-499mg/dl High
Greater than 500mg/dl Very High HDL 10/10/2023 14:52 61 SEE COMMENT ( MG/DL) Final HDL
<40mg/dl Elevated R isk
41-59mg/dl Risk
>=60mg/dl Least Risk Cholesterol in LDL [Mass/volume] in Serum or Plasma 10/10/2023 14:52 137 Above high normal 0-130 (MG/DL) Final LDL
<100mg/dl Optimal<b r/> 100-129mg/dl Near Optimal
130-159mg/dl Borderline High
160-189mg/dl High
>=190 Very High Cholesterol in VLDL [Mass/vo lume] in Serum or Plasma 10/10/2023 14:52 28.8 SEE COMMENT (MG/DL ) Final VLDL
Less than 30mg/dl Normal HDL 10/10/2023 14:52 3.5 SEE COMMENT ( RATIO) Final CHOL/HDL
<4.0 Optimal<b r/> 4.0-5.0 Borderline
>6.0 High Risk NON-HDL 10/10/2023 14:52 150 SEE COMMENT ( MG/DL) Final NON-HDL
30mg/dl higher than LDL Target Performing Location [facility] [address] [place] [address]
--- OUTSIDE RECORDS SUMMARY | 2023-11-04 15:45 | External Medical Summary | Continuity of Care Document ---
Author Name Unknown Organization [facility], Address [address] [place] [address] Phone [phone] Problems Description No Active Problems Social History [...] hours as needed Andrew Juares MD 07/26/2023 Yqqcdyinsk641en Capsules 1 tablet by mouth twice a day Andrew Juares MD 07/26/2023 Tummgsgentl0nb Tablets Dispers 1 tablet every 8 hours as needed for nausea Andrew Juares MD 07/26/2023 Ketorolac Kmwoeuzapsls47ah Tablets 1 tablet by mouth three times a day Andrew Juares MD 07/26/2023 Diclofenac Sodium1% Gel apply 4 grams externally to right knee 4 times daily for pain 300gm M25.561 Jimy Casanova JR, DO 05/19/2023 Alendronate Omrtra32qt Tablets Take 1 Tablet Once Weekly 30 Minutes Before Breakfast With 8Oz Of Water. Remain Upright For 60 Minutes After Taking Medication. 12tabs [facility] 09/13/2022 Tqbfeiecop34wh Tablets Take 1 Tablet Daily 90tabs Joy dc MD, PhD 11/12/2019 Onjagzykjmlhny81lq Tablets Take 1 Tablet Daily 90tabs [facility] 10/02/2018 Calcium + E8Hdksqnz 1 po qd Joy Juan MD, PhD Osteo Bi-Flex Regular Lfcffjea608-577dy Tablets 2 in the in the morning Unknown Diclofenac Ckllbi67ks Tablets DR 1 by mouth twice a day 90tabs [facility] Aspirin 81 Low Eflc52ak Chewtabs 1 by mouth every day Unknown History Medications Fxuimxjvbs98hg Tablets 4 tabs po qd x 2 days, 3 tabs po qd x 2 days, 2 tabs po qd x 2 days, 1 tab po qd x 2 days 20tabs M25.561 Jimy Casanova JR, DO 05/19/2023 - 05/27/2023 Immunizations CPT Code Status Date Vaccine Lot # [id number] Given 07/04/2023 Influenza Vaccine High Do se 0.5ML Age 65 & > 39865 Given 07/24/2022 Influenza Vaccine High Do se 0.5ML Age 65 & > [id number] 11150 Given 07/24/2022 Pneumococcal Conjugate-Pr evnar 20 [id number] 81573 Given 08/09/2021 Influenza Virus Vaccine, Quadrivalent (Cciiv4), Derived From Cell 40787 Given 03/27/2020 Shingrix 76185 Given 12/06/2019 Shingrix 40171 Given 08/05/2019 Influenza Vacci ne Quadrivalent Preser/Antibiotic Free [place] Use 85806 Given 11/03/2018 Tdap (Tetanus, diphtheria & acel. pertussis) Adacel or Boostrix 84135 Given 07/10/2018 Influenza Virus Vaccine, Quadrivalent, Im Use 00714 Given 08/07/2017 Influenza Virus Vaccine, Quadrivalent, Im Use 39658 Given 07/15/2016 Influenza Virus Vaccine, Quadrivalent, Im Use 10659 Given 06/29/2014 Influenza Vac, Split 3 Yr s And Up [id number] 63989 Given 06/07/2014 Zostavax Vaccine 87371 Given 07/28/2013 Influenza Vac, Split 3 Yr s And Up 03140 Given 07/24/2012 Pneumococcal Vaccine/Pneu movax 23 36100 Refused 01/23/2023 Moderna Sars-Co v-2 (Cov-19) vacc,100 mcg/ 0.5 mL 12Y+EMR Doc Only 82502 Refused 01/09/2022 Moderna Sars-Co v-2 (Cov-19) vacc,100 mcg/ 0.5 mL 12Y+EMR Doc Only 94330 Refused 12/26/2020 Moderna Sars-Co v-2 (Cov-19) vacc,100 mcg/ 0.5 mL 12Y+EMR Doc Only 37882 Refused 06/02/2020 Influenza Virus Vaccine, Quadrivalent, Im Use 54523 Refused 06/16/2019 Influenza Virus Vaccine, Quadrivalent, Im Use 53308 Refused 10/02/2018 Tdap (Tetanus, diphtheria & acel. pertussis) Adacel or Boostrix 70196 Refused 01/24/2016 Tetanus Toxoid 61490 Refused 01/24/2016 Influenza Virus Vaccine, Quadrivalent, [place] Use 45324 Refused 01/04/2015 Tdap (Tetanus, diphtheria & acel. pertussis) Adacel or Boostrix Vital Signs Date Vital Result Comment 07/18/2023 9:07am BP Systolic 130 mmHg BP Diastolic 70 mmHg Body Temperature 97.9 F Heart Rate 72 /min Respiratory Rate 18 /min Weight 227.00 lb Weight 102.967 kg Height 61 inches 5'1" BMI (Body Mass Index) 42.9 kg/m2 [place] Body Weight 105 lb 05/19/2023 10:38am BP Systolic 120 mmHg BP Diastolic 76 mmHg Body Temperature 97.3 F Heart Rate 74 /min Respiratory Rate 18 /min Weight 223.38 lb Weight 101.323 kg Results Test Acquired Date Facility Test Result H/L Range N ote BMP 07/18/2023 [facility]. [address] [place] [address] [phone] Glucose 115 mg/dL High 70-110 1 BUN 30 mg/dL High 6-25 Creatinine 0.9 mg/dL 0.5-1.2 Sodium 143 mEq/L 135-145 Potassium 4.9 mEq/L 3.5-5.0 Chloride 111 mEq/L High 95-107 Co-2 23 mEq/L Low 24-31 Calcium 9.7 mg/dL 8.5-10.6 GFR 67 ML/MIN/1.73SQM >60 1 STAT RESULTS CALLED AND FAXED TO JAMES Gilliland AT 3:17 ON 07/18/23 WK Procedures Date Code Description Status 09/12/2023 58117 Therapeutic Activities Direc t, Each 15 Minutes Completed 09/12/2023 80313 Therapeutic Procedure Group Completed 09/12/2023 10132 Manual Oven Tender Bagels 1/> Area 15 Min Each Region Completed 09/12/2023 54672 Therapy Proc, Neuromuscular Reeducation Of Movement Completed 09/12/2023 87948 Hot/Cold Pack Completed 09/12/2023 G0283 Electrical Stimulation as Th erapy Plan Of Care Completed 09/10/2023 41972 Therapy Proc, Neuromuscular Reeducation Of Movement Completed 09/10/2023 03736 Hot/Cold Pack Completed 09/10/2023 37156 Manual Oven Tender Bagels 1/> Area 15 Min Each Region Completed 09/10/2023 56143 Therapeutic Procedure Group Completed 09/10/2023 71710 Therapeutic Activities Direc t, Each 15 Minutes Completed 09/10/2023 G0283 Electrical Stimulation as Th erapy Plan Of Care Completed 09/08/2023 G0283 Electrical Stimulation as Th erapy Plan Of Care Completed 09/08/2023 59960 Therapeutic Activities Direc t, Each 15 Minutes Completed 09/08/2023 26753 Therapeutic Procedure Group Completed 09/08/2023 85563 Manual Oven Tender Bagels 1/> Area 15 Min Each Region Completed 09/08/2023 69548 Therapy Proc, Neuromuscular Reeducation Of Movement Completed 09/08/2023 50533 Hot/Cold Pack Completed 09/03/2023 20898 Hot/Cold Pack Completed 09/03/2023 13544 Therapy Proc, Neuromuscular Reeducation Of Movement Completed 09/03/2023 62080 Therapeutic Procedure Group Completed 09/03/2023 G0283 Electrical Stimulation as Th erapy Plan Of Care Completed 09/03/2023 28985 Manual Oven Tender Bagels 1/> Area 15 Min Each Region Completed 09/01/2023 G0283 Electrical Stimulation as Th erapy Plan Of Care Completed 09/01/2023 98607 Therapeutic Activities Direc t, Each 15 Minutes Completed 09/01/2023 59852 Therapeutic Procedure Group Completed 09/01/2023 35854 Manual Oven Tender Bagels 1/> Area 15 Min Each Region Completed 09/01/2023 53940 Therapy Proc, Neuromuscular Reeducation Of Movement Completed 09/01/2023 99147 Hot/Cold Pack Completed 08/27/2023 68415 Manual Oven Tender Bagels 1/> Area 15 Min Each Region Completed 08/27/2023 86653 Hot/Cold Pack Completed 08/27/2023 52281 Therapy Proc, Neuromuscular Reeducation Of Movement Completed 08/27/2023 74356 Therapeutic Procedure Group Completed 08/27/2023 68656 Therapeutic Activities Direc t, Each 15 Minutes Completed 08/27/2023 G0283 Electrical Stimulation as Th erapy Plan Of Care Completed 08/26/2023 G0283 Electrical Stimulation as Th erapy Plan Of Care Completed 08/26/2023 42374 Therapeutic Activities Direc t, Each 15 Minutes Completed 08/26/2023 68623 Manual Oven Tender Bagels 1/> Area 15 Min Each Region Completed 08/26/2023 09619 Therapy Proc, Neuromuscular Reeducation Of Movement Completed 08/26/2023 12462 Therapy Proc 1/> Area 15Min Ea Completed 08/26/2023 92355 Hot/Cold Pack Completed 08/25/2023 77670 Hot/Cold Pack Completed 08/25/2023 88886 Therapeutic Procedure Group Completed 08/25/2023 59735 Therapy Proc 1/> Area 15Min Ea Completed 08/25/2023 04452 Manual Oven Tender Bagels 1/> Area 15 Min Each Region Completed 08/25/2023 G028 Electrical Stimulation as Th erapy Plan Of Care Completed 08/25/2023 37615 Therapy Proc, Neuromuscular Reeducation Of Movement Completed 08/22/2023 G028 Electrical Stimulation as Th erapy Plan Of Care Completed 08/22/2023 24177 Therapeutic Procedure Group Completed 08/22/2023 64393 Manual Oven Tender Bagels 1/> Area 15 Min Each Region Completed 08/22/2023 62448 Therapy Proc, Neuromuscular Reeducation Of Movement Completed 08/22/2023 62890 Therapy Proc 1/> Area 15Min Ea Completed 08/22/2023 91888 Hot/Cold Pack Completed 08/20/2023 42369 Therapy Proc, Neuromuscular Reeducation Of Movement Completed 08/20/2023 24846 Hot/Cold Pack Completed 08/20/2023 73101 Therapy Proc 1/> Area 15Min Ea Completed 08/20/2023 89385 Manual Oven Tender Bagels 1/> Area 15 Min Each Region Completed 08/20/2023 G0283 Electrical Stimulation as Th erapy Plan Of Care Completed 08/18/2023 G0283 Electrical Stimulation as Th erapy Plan Of Care Completed 08/18/2023 93353 Therapeutic Procedure Group Completed 08/18/2023 87522 Manual Oven Tender Bagels 1/> Area 15 Min Each Region Completed 08/18/2023 03586 Therapy Proc, Neuromuscular Reeducation Of Movement Completed 08/18/2023 54420 Therapy Proc 1/> Area 15Min Ea Completed 08/18/2023 16439 Hot/Cold Pack Completed 08/15/2023 G0283 Electrical Stimulation as Th erapy Plan Of Care Completed 08/15/2023 04921 Hot/Cold Pack Completed 08/15/2023 83441 Therapy Proc 1/> Area 15Min Ea Completed 08/15/2023 69725 Manual Oven Tender Bagels 1/> Area 15 Min Each Region Completed 08/15/2023 20103 Therapeutic Procedure Group Completed 08/15/2023 00773 Therapy Proc, Neuromuscular Reeducation Of Movement Completed 08/14/2023 74361 Hot/Cold Pack Completed 08/14/2023 51207 Therapy Proc 1/> Area 15Min Ea Completed 08/14/2023 91942 Therapy Proc, Neuromuscular Reeducation Of Movement Completed 08/14/2023 62956 Manual Oven Tender Bagels 1/> Area 15 Min Each Region Completed 08/14/2023 45045 Therapeutic Procedure Group Completed 08/14/2023 G0283 Electrical Stimulation as Th erapy Plan Of Care Completed 08/12/2023 47252 Physical Therapy Evaluation Low Complexity Completed 08/12/2023 90604 Manual Oven Tender Bagels 1/> Area 15 Min Each Region Completed 08/12/2023 42578 Therapy Proc 1/> Area 15Min Ea Completed 07/28/2023 1111F D/C Medications Reconciled W/Current Medications In Outpt MR Completed 07/18/2023 91109 Venipuncture Routine Complet ed 09/05/2022 [id number] Bone Mineral Density Test Co mpleted 09/05/2022 04480037 Mammogram Completed 08/07/2018 92103686 Colonoscopy Completed Medical Devices Description No Information Available Encounters Type Date Location Provider Dx Diagnosis Office Visit 07/18/2023 9:00a [facility] Z01.818 Encounter for other preprocedural examination Office Visit 05/19/2023 10:45a Thelma Mushtaq Gee PA-C M25.561 Pain in right knee M17.0 Bilateral primary os teoarthritis of knee Assessments Date Code Description Provider 09/12/2023 M25.561 Pain in right knee Jcarlos [...] 08/20/2023 M25.561 Pain in right knee Jcarlos aBiley, DPT 08/20/2023 Z47.1 Aftercare follow ing joint replacement surgery Jcarlos Bailey, DPT 08/18/2023 M25.561 Pain in right knee Jcarlos Bailey, DPT 08/18/2023 Z47.1 Aftercare follow ing joint replacement surgery Jcarlos Bailey, DPT 08/15/2023 M25.561 Pain in right knee Jcarlos Bailey, DPT 08/15/2023 Z47.1 Aftercare follow ing joint replacement surgery Jcarlos Bailey, DPT 08/14/2023 M25.561 Pain in right knee Jordan Morataya gavialbaro, DPT 08/14/2023 Z47.1 Aftercare follow ing joint replacement surgery Jordan Gary, DPT 08/12/2023 M25.561 Pain in right knee Jordan Morataya gavialbaro, DPT 08/12/2023 Z47.1 Aftercare follow ing joint replacement surgery Jordan Villareal Abdirahman, DPT 07/28/2023 M17.0 Bilateral primary osteoarthr itis of knee Joy Juan MD, PhD 07/18/2023 Z01.818 Encounter for ot her preprocedural examination [facility] 05/19/2023 M25.561 Pain in right knee Mushtaq elizabeth PA-C 05/19/2023 M17.0 Bilateral primary osteoarthr itis of knee Mushtaq Gee PA-C Plan of Treatment Future Appointment(s):* 10/24/2023 8:00 am - [facility] [place] * 10/10/2023 8:00 am - [facility] 07/18/2023 - [facility]* Z01.818 Encounter for [...]
--- OUTSIDE RECORDS SUMMARY | 2023-11-04 15:45 | External Medical Summary | Continuity of Care Document ---
Author Name Unknown Organization [facility], Address [address] [place] [address] Phone [phone] Problems Description No Active Problems Social History [...] hours as needed Andrew Juares MD 07/26/2023 Eecoziwhmy377ma Capsules 1 tablet by mouth twice a day Andrew Juares MD 07/26/2023 Ohbswberbra1ie Tablets Dispers 1 tablet every 8 hours as needed for nausea Andrew Juares MD 07/26/2023 Ketorolac Svzaifmmylyd14ge Tablets 1 tablet by mouth three times a day Andrew Juares MD 07/26/2023 Diclofenac Sodium1% Gel apply 4 grams externally to right knee 4 times daily for pain 300gm M25.561 Jimy Casanova JR, DO 05/19/2023 Alendronate Ueuykr14jj Tablets Take 1 Tablet Once Weekly 30 Minutes Before Breakfast With 8Oz Of Water. Remain Upright For 60 Minutes After Taking Medication. 12tabs [facility] 09/13/2022 Vlwvweexir79he Tablets Take 1 Tablet Daily 90tabs Joy dc MD, PhD 11/12/2019 Folkgzgwntyzbz89tm Tablets Take 1 Tablet Daily 90tabs [facility] 10/02/2018 Calcium + A4Sqjcmce 1 po qd Joy Juan MD, PhD Osteo Bi-Flex Regular Awinervf021-898ne Tablets 2 in the in the morning Unknown Diclofenac Vheteh98me Tablets DR 1 by mouth twice a day 90tabs [facility] Aspirin 81 Low Pjqw01nr Chewtabs 1 by mouth every day Unknown History Medications Mdgylusnvb69la Tablets 4 tabs po qd x 2 days, 3 tabs po qd x 2 days, 2 tabs po qd x 2 days, 1 tab po qd x 2 days 20tabs M25.561 Jimy Casanova JR, DO 05/19/2023 - 05/27/2023 Immunizations CPT Code Status Date Vaccine Lot # [id number] Given 07/04/2023 Influenza Vaccine High Do se 0.5ML Age 65 & > 73797 Given 07/24/2022 Influenza Vaccine High Do se 0.5ML Age 65 & > [id number] 47270 Given 07/24/2022 Pneumococcal Conjugate-Pr evnar 20 [id number] 62353 Given 08/09/2021 Influenza Virus Vaccine, Quadrivalent (Cciiv4), Derived From Cell 27559 Given 03/27/2020 Shingrix 21449 Given 12/06/2019 Shingrix 87439 Given 08/05/2019 Influenza Vacci ne Quadrivalent Preser/[place] [address]288 Given 11/03/2018 Tdap (Tetanus, diphtheria & acel. pertussis) Adacel or Boostrix 27330 Given 07/10/2018 Influenza Virus Vaccine, Quadrivalent, Im Use 73963 Given 08/07/2017 Influenza Virus Vaccine, Quadrivalent, Im Use 18415 Given 07/15/2016 Influenza Virus Vaccine, Quadrivalent, Im Use 03790 Given 06/29/2014 Influenza Vac, Split 3 Yr s And Up [id number] 83597 Given 06/07/2014 Zostavax Vaccine 64474 Given 07/28/2013 Influenza Vac, Split 3 Yr s And Up 15029 Given 07/24/2012 Pneumococcal Vaccine/Pneu movax 23 22242 Refused 01/23/2023 Moderna Sars-Co v-2 (Cov-19) vacc,100 mcg/ 0.5 mL 12Y+EMR Doc Only 14804 Refused 01/09/2022 Moderna Sars-Co v-2 (Cov-19) vacc,100 mcg/ 0.5 mL 12Y+EMR Doc Only 16175 Refused 12/26/2020 Moderna Sars-Co v-2 (Cov-19) vacc,100 mcg/ 0.5 mL 12Y+EMR Doc Only 95853 Refused 06/02/2020 Influenza Virus Vaccine, Quadrivalent, Im Use 56573 Refused 06/16/2019 Influenza Virus Vaccine, Quadrivalent, Im Use 40069 Refused 10/02/2018 Tdap (Tetanus, diphtheria & acel. pertussis) Adacel or Boostrix 15159 Refused 01/24/2016 Tetanus Toxoid 76845 Refused 01/24/2016 Influenza Virus Vaccine, Quadrivalent, [place] Use 48548 Refused 01/04/2015 Tdap (Tetanus, diphtheria & acel. pertussis) Adacel or Boostrix Vital Signs Date Vital Result Comment 07/18/2023 9:07am BP Systolic 130 mmHg BP Diastolic 70 mmHg Body Temperature 97.9 F Heart Rate 72 /min Respiratory Rate 18 /min Weight 227.00 lb Weight 102.967 kg Height 61 inches 5'1" BMI (Body Mass Index) 42.9 kg/m2 [place] Body Weight 105 lb 05/19/2023 10:38am BP Systolic 120 mmHg BP Diastolic 76 mmHg Body Temperature 97.3 F Heart Rate 74 /min Respiratory Rate 18 /min Weight 223.38 lb Weight 101.323 kg Results Test Acquired Date Facility Test Result H/L Range N ote BMP 07/18/2023 [facility]. [address] [place] [address] [phone] Glucose 115 mg/dL High 70-110 1 BUN 30 mg/dL High 6-25 Creatinine 0.9 mg/dL 0.5-1.2 Sodium 143 mEq/L 135-145 Potassium 4.9 mEq/L 3.5-5.0 Chloride 111 mEq/L High 95-107 Co-2 23 mEq/L Low 24-31 Calcium 9.7 mg/dL 8.5-10.6 GFR 67 ML/MIN/1.73SQM >60 1 STAT RESULTS CALLED AND FAXED TO JAMES Gilliland AT 3:17 ON 07/18/23 WK Procedures Date Code Description Status 09/08/2023 10799 Therapeutic Activities Direc t, Each 15 Minutes Completed 09/08/2023 44013 Therapeutic Procedure Group Completed 09/08/2023 00370 Manual Leader Assembler 1/> Area 15 Min Each Region Completed 09/08/2023 03121 Therapy Proc, Neuromuscular Reeducation Of Movement Completed 09/08/2023 11478 Hot/Cold Pack Completed 09/08/2023 G0283 Electrical Stimulation as Th erapy Plan Of Care Completed 09/03/2023 35546 Hot/Cold Pack Completed 09/03/2023 69477 Therapy Proc, Neuromuscular Reeducation Of Movement Completed 09/03/2023 59532 Manual Leader Assembler 1/> Area 15 Min Each Region Completed 09/03/2023 92942 Therapeutic Procedure Group Completed 09/03/2023 G0283 Electrical Stimulation as Th erapy Plan Of Care Completed 09/01/2023 G0283 Electrical Stimulation as Th erapy Plan Of Care Completed 09/01/2023 98879 Therapeutic Activities Direc t, Each 15 Minutes Completed 09/01/2023 87312 Therapeutic Procedure Group Completed 09/01/2023 61821 Manual Leader Assembler 1/> Area 15 Min Each Region Completed 09/01/2023 18468 Therapy Proc, Neuromuscular Reeducation Of Movement Completed 09/01/2023 39722 Hot/Cold Pack Completed 08/27/2023 85459 Therapeutic Procedure Group Completed 08/27/2023 56277 Hot/Cold Pack Completed 08/27/2023 84789 Therapy Proc, Neuromuscular Reeducation Of Movement Completed 08/27/2023 06942 Manual Leader Assembler 1/> Area 15 Min Each Region Completed 08/27/2023 55812 Therapeutic Activities Direc t, Each 15 Minutes Completed 08/27/2023 G0283 Electrical Stimulation as Th erapy Plan Of Care Completed 08/26/2023 G0283 Electrical Stimulation as Th erapy Plan Of Care Completed 08/26/2023 08415 Therapeutic Activities Direc t, Each 15 Minutes Completed 08/26/2023 86094 Manual Leader Assembler 1/> Area 15 Min Each Region Completed 08/26/2023 13571 Therapy Proc, Neuromuscular Reeducation Of Movement Completed 08/26/2023 83749 Therapy Proc 1/> Area 15Min Ea Completed 08/26/2023 43548 Hot/Cold Pack Completed 08/25/2023 G0283 Electrical Stimulation as Th erapy Plan Of Care Completed 08/25/2023 42938 Therapeutic Procedure Group Completed 08/25/2023 31707 Manual Leader Assembler 1/> Area 15 Min Each Region Completed 08/25/2023 53497 Therapy Proc, Neuromuscular Reeducation Of Movement Completed 08/25/2023 07608 Therapy Proc 1/> Area 15Min Ea Completed 08/25/2023 45060 Hot/Cold Pack Completed 08/22/2023 12998 Therapy Proc 1/> Area 15Min Ea Completed 08/22/2023 34069 Hot/Cold Pack Completed 08/22/2023 54280 Therapeutic Procedure Group Completed 08/22/2023 57577 Manual Leader Assembler 1/> Area 15 Min Each Region Completed 08/22/2023 14145 Therapy Proc, Neuromuscular Reeducation Of Movement Completed 08/22/2023 G0283 Electrical Stimulation as Th erapy Plan Of Care Completed 08/20/2023 G0283 Electrical Stimulation as Th erapy Plan Of Care Completed 08/20/2023 32851 Manual Leader Assembler 1/> Area 15 Min Each Region Completed 08/20/2023 26161 Therapy Proc, Neuromuscular Reeducation Of Movement Completed 08/20/2023 10881 Therapy Proc 1/> Area 15Min Ea Completed 08/20/2023 79476 Hot/Cold Pack Completed 08/18/2023 G0283 Electrical Stimulation as Th erapy Plan Of Care Completed 08/18/2023 65366 Therapeutic Procedure Group Completed 08/18/2023 09859 Manual Leader Assembler 1/> Area 15 Min Each Region Completed 08/18/2023 40835 Therapy Proc, Neuromuscular Reeducation Of Movement Completed 08/18/2023 53329 Therapy Proc 1/> Area 15Min Ea Completed 08/18/2023 46835 Hot/Cold Pack Completed 08/15/2023 43704 Hot/Cold Pack Completed 08/15/2023 65596 Therapy Proc 1/> Area 15Min Ea Completed 08/15/2023 23384 Therapy Proc, Neuromuscular Reeducation Of Movement Completed 08/15/2023 29355 Therapeutic Procedure Group Completed 08/15/2023 G0283 Electrical Stimulation as Th erapy Plan Of Care Completed 08/15/2023 07775 Manual Leader Assembler 1/> Area 15 Min Each Region Completed 08/14/2023 52943 Hot/Cold Pack Completed 08/14/2023 23885 Therapy Proc 1/> Area 15Min Ea Completed 08/14/2023 26395 Therapy Proc, Neuromuscular Reeducation Of Movement Completed 08/14/2023 77414 Manual Leader Assembler 1/> Area 15 Min Each Region Completed 08/14/2023 29640 Therapeutic Procedure Group Completed 08/14/2023 G0283 Electrical Stimulation as Th erapy Plan Of Care Completed 08/12/2023 11067 Physical Therapy Evaluation Low Complexity Completed 08/12/2023 41209 Manual Leader Assembler 1/> Area 15 Min Each Region Completed 08/12/2023 45052 Therapy Proc 1/> Area 15Min Ea Completed 07/28/2023 1111F D/C Medications Reconciled W/Current Medications In Outpt MR Completed 07/18/2023 59389 Venipuncture Routine Complet ed 09/05/2022 107396641 Bone Mineral Density Test Co mpleted 09/05/2022 96591281 Mammogram Completed 08/07/2018 97556375 Colonoscopy Completed Medical Devices Description No Information Available Encounters Type Date Location Provider Dx Diagnosis Office Visit 07/18/2023 9:00a [facility] Z01.818 Encounter for other preprocedural examination Office Visit 05/19/2023 10:45a Maggy Gee PA-C M25.561 Pain in right knee M17.0 Bilateral primary os teoarthritis of knee Assessments Date Code Description Provider 09/08/2023 M25.561 Pain in right knee Jordan mullins DPT 09/08/2023 Z47.1 Aftercare follow ing joint replacement surgery MAJO CannonT 09/05/2023 M25.561 Pain in right knee MAJO TurnerT 09/05/2023 Z47.1 Aftercare follow ing joint replacement surgery Jordan Gary DPT 09/03/2023 M25.561 Pain in right knee MAJO TurnerT 09/03/2023 Z47.1 Aftercare follow ing joint replacement surgery Jordan Gary DPT 09/01/2023 M25.561 Pain in right knee Jordan mullins, DPT 09/01/2023 Z47.1 Aftercare follow ing joint replacement surgery Jordan B Abdirahman, DPT 08/27/2023 M25.561 Pain in right knee Jcarlos Bailey, DPT 08/27/2023 Z47.1 Aftercare follow ing joint replacement surgery Jcarlos Bailey, DPT 08/26/2023 M25.561 Pain in right knee Jordan Dionna mullins, DPT 08/26/2023 Z47.1 Aftercare follow ing joint replacement surgery Jordan B Abdirahman, DPT 08/25/2023 M25.561 Pain in right knee [...] 08/15/2023 M25.561 Pain in right knee Jcarlos Baliey, DPT 08/15/2023 Z47.1 Aftercare follow ing joint [...] 10/24/2023 8:00 am - [facility] [place] * 10/10/2023 8:00 am [place] [facility] [place] [facility] [place] 07/18/2023 - [facility]* Z01.818 Encounter for [...]
--- OUTSIDE RECORDS SUMMARY | 2023-11-04 15:45 | External Medical Summary | Summary of Care ---
Author Name Unknown Organization [facility] Address [address] [place] [address] Phone [phone] Care Team Providers Care Optical Lathe Operator Name Role Phone Joy Juan MD Primary Care Provider + Encounter Details Date Type Department Care Team (Late st Contact Info) Description 10/10/2023 Orders Only Unspecified Department Joy Juan MD [address] [place] [address] Allergies No known active allergiesdocumented as of this encounter (statuses as of 10/10/2023) Medications Medication Sig Dispensed Refills Start Date [...] as of this encounter (statuses as of 10/10/2023) Immunizations Name Administration Dates Next Due TDAP [...] as of this encounter Plan of Treatment Upcoming Encounters Date Type Department Care Team (Late st Contact Info) Description 10/13/2023 2:00 PM EST Appointment Radiology, [place] [address] Scheduled Procedures Name Priority Associated Diagnoses Date/Ti me COLONOSCOPY FLEXIBLE PROXIMAL DIAGNOSTIC Recall Colon cancer screening Health Maintenance Due Date Last Done Comments COVID-19 Vaccine (#1) 04/21/1956 Depression Screening 1968 Hepatitis C Screening 1974 Cologuard 2001 Fecal Occult Blood Test 2001 Sigmoidoscopy 2001 Influenza Vaccine (FLU shot) (#1) 2023 07/24/2022, 08/05/2019, 06/29/2014, Additional history exists Mammogram 09/05/2023 09/05/2022, 08/07, 06/23/2020, Additional history exists Lipid Panel 01/19/2028 10/10/2023, 01/04, 07/19/2022, Additional history exists Colonoscopy 08/07/2028 08/07/2018, 08/07/2018 Colorectal Cancer Screening 08/07/2028 DTaP,Tdap,and Td Vaccines (2 - Td or Tdap) 11/03/2028 11/03/2018 DXA Scan 09/05/2029 09/05/2022 Zoster Vaccines Completed 03/27/2020, 11/2019, 06/07/2014 Pneumococcal Vaccine: 65+ Years Completed 07/24/2022, 07/24/2012 GARDASIL-HPV IMMUNIZATION SERIES Aged Out No longer [...] Procedure Name Priority Date/Time Associated Diagnosis Comments C-REACTIVE PROT - OUTSIDE LAB Routine 10/10/2023 7:52 AM EST 25-HYDROXY VITAMIN D Routine 10/10/2023 7:52 AM EST COMPREHENSIVE METABOLIC PANEL Routine 10/10/2023 7:52 AM EST CBC Routine 10/10/2023 7:52 AM EST ERYTHROCYTE SEDIMENTATION RATE (ESR) Routine 10/10/2023 7:52 AM EST LIPID PANEL WITHOUT DIRECT LDL Routine 10/10/2023 7:52 AM EST documented in this encounter Results * ERYTHROCYTE SEDIMENTATION RATE (ESR) (10/10/2023 7:52 AM EST) SED RATE - OUTSIDE LAB 8 0 - 20 [facility] Comment:Document delivery by Colleen on behalf of [facility] 10/10/2023 7:52 AM EST Joy Juan MD LAB BLOOD ORDERA BLES [facility] [address] [place] [address] * (ABNORMAL) CBC WITH WBC DIFFERENTIAL (10/10/2023 7:52 AM EST) WBC-OUTSIDE LAB 9.2 3.1 - 9.2 10^3/M3 [facility] Comment:Document delivery by Colleen on behalf of [facility] RBC-OUTSIDE LAB 4.49 3.70 - 5.50 10^6/M3 [facility] Comment:Document delivery by Colleen on behalf of [facility] HGB - OUTSIDE LAB 13.7 11.5 - 16.1 GR/DL [facility] Comment:Document delivery by Colleen on behalf of [facility] HCT-OUTSIDE LAB 41.2 34.5 - 47.8 % [facility] Comment:Document delivery by Colleen on behalf of [facility] MCV-OUTSIDE LAB 91.9 82.6 - 95.8 CU MICR [facility] Comment:Document delivery by Colleen on behalf of [facility] MCH-OUTSIDE LAB 30.5 27.9 - 32.9 [facility] Comment:Document delivery by [facility] on behalf of [facility] MCHC-OUTSIDE LAB 33.2 32.6 - 35.4 % [facility] Comment:Document delivery by KeyHIE on behalf of [facility] RDW-OUTSIDE LAB 14.6 11.4 - 14.6 % [facility] Comment:Document delivery by [facility] on behalf of [facility] PLT-OUTSIDE LAB 452(H) 140 - 350 10^3/M3 [facility] Comment:Document delivery by KeyHIE on behalf of [facility] MPV-OUTSIDE LAB 7.6 7.0 - 10.6 CU MICR [facility] Comment:Document delivery by KeyHIE on behalf of [facility] %NEUT - OUTSIDE LAB 65.5 40.0 - 75.0 % [facility] Comment:Document delivery by KeyHIE on behalf of [facility] %LYMPH - OUTSIDE LAB 22.6 17.0 - 45.0 % [facility] Comment:Document delivery by KeyHIE on behalf of [facility] %MONO - OUTSIDE LAB 9.4 1.0 - 11.0 % [facility] Comment:Document delivery by KeyHIE on behalf of [facility] EO%-OUTSIDE LAB 1.4 0.0 - 6.0 % [facility] Comment:Document delivery by KeyHIE on behalf of [facility] BASOPHILS - OUTSIDE LAB 1.1 0.0 - 2.0 % [facility] Comment:Document delivery by KeyHIE on behalf of [facility] #NEUT - OUTSIDE LAB 6.0 1.5 - 8.0 10^3/M3 [facility] Comment:Document delivery by [facility] on behalf of [facility] %LYMPH - OUTSIDE LAB 2.1 0.8 - 3.2 10^3/M3 [facility] Comment:Document delivery by KeyHIE on behalf of [facility] %MONO - OUTSIDE LAB 0.9(H) 0.0 - 0.8 10^3/M3 [facility] Comment:Document delivery by KeyHIE on behalf of [facility] EO#-OUTSIDE LAB 0.1 0.0 - 0.4 10^3/m3 [facility] Comment:Document delivery by Colleen on behalf of [facility] Basophils Absolute-Outsi de Lab 0.1 0.0 - 0.2 10^3/m3 [facility] Comment:Document delivery by Colleen on behalf of [facility] 10/10/2023 7:52 AM EST Joy Juan MD LAB BLOOD ORDERA BLES [facility] [address] [place] [address] * (ABNORMAL) COMPREHENSIVE METABOLIC PANEL (10/10/2023 7:52 AM EST) GLUCOSE-OUTSID E LAB 110 70 - 110 MG/DL [facility] Comment:Document delivery by Colleen on behalf of [facility] BUN-OUTSIDE LAB 22 6 - 25 MG/DL [facility] Comment:Document delivery by Colleen on behalf of [facility] CREATININE-OUT SIDE LAB 0.8 0.5 - 1.2 MG/DL [facility] Comment:Document delivery by Colleen on behalf of [facility] SODIUM-OUTSIDE LAB 137 135 - 145 MEQ/L [facility] Comment:Document delivery by Colleen on behalf of [facility] POTASSIUM-OUTS KASHIF LAB 6.0(H) 3.5 - 5.0 MEQ/L [facility] Comment:Document delivery by Colleen on behalf of [facility] CHLORIDE-OUTSI DE LAB 104 95 - 107 MEQ/L [facility] Comment:Document delivery by Colleen on behalf of [facility] CO2-OUTSIDE LAB 22(L) 24 - 31 MEQ/L [facility] Comment:Document delivery by Colleen on behalf of [facility] ALKALINE PHOSPHATASE-OU TSIDE LAB 68 43 - 122 IU/L [facility] Comment:Document delivery by Colleen on behalf of [facility] ALT-OUTSIDE LAB 19 10 - 40 IU/L [facility] Comment:Document delivery by Colleen on behalf of [facility] AST-OUTSIDE LAB 15 3 - 42 IU/L [facility] Comment:Document delivery by Colleen on behalf of [facility] TOTAL BILIRUBIN - OUTSIDE LAB 0.4 0.1 - 1.3 MG/DL [facility] Comment:Document delivery by Colleen on behalf of [facility] CALCIUM-OUTSID E LAB 9.8 8.5 - 10.6 MG/DL [facility] Comment:Document delivery by Colleen on behalf of [facility] TOTAL PROTEIN - OUTSIDE LAB 7.3 5.8 - 8.0 G/DL [facility] Comment:Document delivery by Colleen on behalf of [facility] ALBUMIN - OUTSIDE LAB 4.8 3.0 - 5.2 G/DL [facility] Comment:Document delivery by Colleen on behalf of [facility] GLOBULIN-OUTSI DE LAB 2.5 2.0 - 3.4 G/DL [facility] Comment:Document delivery by Colleen on behalf of [facility] EGFR-OUTSIDE LAB 76 >60 ML/MIN/1.7 3 SQM [facility] Comment:Document delivery by Colleen on behalf of [facility] 10/10/2023 7:52 AM EST Joy Juan MD LAB BLOOD ORDERA BLES [facility] [address] [place] [address] * (ABNORMAL) LIPID PANEL WITHOUT DIRECT LDL (10/10/2023 7:52 AM EST) CHOLESTEROL-Out side Lab 211(H) 0 - 200 MG/DL [facility] Comment: Document delivery by Colleen on behalf of [facility] CHOLESTEROL Less than 200mg/dl Low risk 201-239 mg/dl Borderline risk Equal to or greater 240mg/dl High risk CHOLESTEROL COMMENTS REPORT FAXED TO DOCTOR, REQUESTED ON REQUISITION.10/10/23 TRIGLYCERIDES-O UTSIDE LAB 144 0 - 150 MG/DL [facility] Comment: Document delivery by Colleen on behalf of [facility] TRIGLYCERIDES Less than 150mg/dl Normal 150-199mg/dl Borderline 200-499mg/dl High Greater than 500mg/dl Very High HDLD - OUTSIDE LAB 61 SEE COMMENT MG/DL [facility] Comment: Document delivery by Colleen on behalf of [facility] HDL <40mg/dl Elevated Risk 41-59mg/dl Risk >=60mg/dl Least Risk LDL (DIRECT MEASURE)-OUTSID E LAB 137(H) 0 - 130 MG/DL [facility] Comment: Document delivery by Colleen on behalf of [facility] LDL <100mg/dl Optimal 100-129mg/dl Near Optimal 130-159mg/dl Borderline High 160-189mg/dl High >=190 Very High CALCULATED VLDL - OUTSIDE LAB 28.8 SEE COMMENT MG/DL [facility] Comment: Document delivery by Colleen on behalf of [facility] VLDL Less than 30mg/dl Normal HDLD - OUTSIDE LAB 3.5 SEE COMMENT RATIO [facility] Comment: Document delivery by Colleen on behalf of [facility] CHOL/HDL <4.0 Optimal 4.0-5.0 Borderline >6.0 High Risk NON-HDL - OUTSIDE LAB 150 SEE COMMENT MG/DL [facility] Comment: Document delivery by Colleen on behalf of [facility] NON-HDL 30mg/dl higher than LDL Target 10/10/2023 7:52 AM EST Joy Juan MD LAB BLOOD ORDERA BLES Performing Organization Address City/[facility]/ZIP Co de Phone Number [facility] [address] [place] [address] * 25-HYDROXY VITAMIN D (10/10/2023 7:52 AM EST) 25-HYDROXY VITAMIN D - OUTSIDE LAB 33 30 - 100 ng/mL [facility] Comment:Document delivery by Colleen on behalf of [facility] 10/10/2023 7:52 AM EST Joy Juan MD LAB BLOOD ORDERA BLES [facility] [address] [place] [address] * C-REACTIVE PROT - OUTSIDE LAB (10/10/2023 7:52 AM EST) C REACTIVE PROT-OUTSIDE LAB 0.621 0.000 - 0.700 mg/dl [facility] Comment:Document delivery by [facility] on behalf of [facility] 10/10/2023 7:52 AM EST Joy Juan MD LABORATORY Performing Organization Address City/[facility]/ZIP Co de Phone Number [facility] [address] [place] [address] documented in this encounter Care Teams Optical Lathe Operator Relationship Specialty Start Date End Date Joy Juan MD [address] [place] [address] PCP - General Family Medicine 12/16/14 documented as of this encounter
--- OUTSIDE RECORDS SUMMARY | 2023-11-04 15:45 | External Medical Summary | Continuity of Care Document ---
Author Name Unknown Organization [facility], Address [address] [place] [address] Phone [phone] Problems Description No Active Problems Social History [...] hours as needed Andrew Juares MD 07/26/2023 Norvfkxlqj954jy Capsules 1 tablet by mouth twice a day Andrew Juares MD 07/26/2023 Qinlxtpdqws9so Tablets Dispers 1 tablet every 8 hours as needed for nausea nAdrew Juares MD 07/26/2023 Ketorolac Bhetdsbyjxui48wa Tablets 1 tablet by mouth three times a day Andrew Juares MD 07/26/2023 Diclofenac Sodium1% Gel apply 4 grams externally to right knee 4 times daily for pain 300gm M25.561 Jimy Casanova JR, DO 05/19/2023 Alendronate Mgnskv57jh Tablets Take 1 Tablet Once Weekly 30 Minutes Before Breakfast With 8Oz Of Water. Remain Upright For 60 Minutes After Taking Medication. 12tabs [facility] 09/13/2022 Gkktadvycl13qj Tablets Take 1 Tablet Daily 90tabs Joy dc MD, PhD 11/12/2019 Ngrqedloknccvw09rg Tablets Take 1 Tablet Daily 90tabs [facility] 10/02/2018 Calcium + J1Ujlyjxv 1 po qd Joy Juan MD, PhD Osteo Bi-Flex Regular Pbxoacrk289-399mj Tablets 2 in the in the morning Unknown Diclofenac Rynjiw19hp Tablets DR 1 by mouth twice a day 90tabs [facility] Aspirin 81 Low Injn72sz Chewtabs 1 by mouth every day Unknown History Medications Armzlieqnt17os Tablets 4 tabs po qd x 2 days, 3 tabs po qd x 2 days, 2 tabs po qd x 2 days, 1 tab po qd x 2 days 20tabs M25.561 Jimy Casanova JR, DO 05/19/2023 - 05/27/2023 Immunizations CPT Code Status Date Vaccine Lot # [id number] Given 07/04/2023 Influenza Vaccine High Do se 0.5ML Age 65 & > 12285 Given 07/24/2022 Influenza Vaccine High Do se 0.5ML Age 65 & > [id number] 06543 Given 07/24/2022 Pneumococcal Conjugate-Pr evnar 20 [id number] 32192 Given 08/09/2021 Influenza Virus Vaccine, Quadrivalent (Cciiv4), Derived From Cell 32621 Given 03/27/2020 Shingrix 65401 Given 12/06/2019 Shingrix 36033 Given 08/05/2019 Influenza Vacci ne Quadrivalent Preser/Antibiotic [place] [address] Given 11/03/2018 Tdap (Tetanus, diphtheria & acel. pertussis) Adacel or Boostrix 24577 Given 07/10/2018 Influenza Virus Vaccine, Quadrivalent, Im Use 86752 Given 08/07/2017 Influenza Virus Vaccine, Quadrivalent, Im Use 46671 Given 07/15/2016 Influenza Virus Vaccine, Quadrivalent, [place] Use 88015 Given 06/29/2014 Influenza Vac, Split 3 Yr s And Up [id number] 78216 Given 06/07/2014 Zostavax Vaccine 29647 Given 07/28/2013 Influenza Vac, Split 3 Yr s And Up [address]9733 Given 07/24/2012 Pneumococcal Vaccine/Pneu movax 23 37626 Refused 01/23/2023 Moderna Sars-Co v-2 (Cov-19) vacc,100 mcg/ 0.5 mL 12Y+EMR Doc Only 44121 Refused 01/09/2022 Moderna Sars-Co v-2 (Cov-19) vacc,100 mcg/ 0.5 mL 12Y+EMR Doc Only 67780 Refused 12/26/2020 Moderna Sars-Co v-2 (Cov-19) vacc,100 mcg/ 0.5 mL 12Y+EMR Doc Only 67066 Refused 06/02/2020 Influenza Virus Vaccine, Quadrivalent, Im Use 24848 Refused 06/16/2019 Influenza Virus Vaccine, Quadrivalent, Im Use 15889 Refused 10/02/2018 Tdap (Tetanus, diphtheria & acel. pertussis) Adacel or Boostrix 69586 Refused 01/24/2016 Tetanus Toxoid 40836 Refused 01/24/2016 Influenza Virus Vaccine, Quadrivalent, Im Use 36558 Refused 01/04/2015 Tdap (Tetanus, diphtheria & acel. pertussis) Adacel or Boostrix Vital Signs Date Vital Result Comment 07/18/2023 9:07am BP Systolic 130 mmHg BP Diastolic 70 mmHg Body Temperature 97.9 F Heart Rate 72 /min Respiratory Rate 18 /min Weight 227.00 lb Weight 102.967 kg Height 61 inches 5'1" BMI (Body Mass Index) 42.9 kg/m2 [place] Body Weight 105 lb 05/19/2023 10:38am BP Systolic 120 mmHg BP Diastolic 76 mmHg Body Temperature 97.3 F Heart Rate 74 /min Respiratory Rate 18 /min Weight 223.38 lb Weight 101.323 kg Results Test Acquired Date Facility Test Result H/L Range N ote Laboratory test finding 10/10/2023 [facility] [address] [place], [place] [address] [phone] Vitd-25Oh <pending> Calcium <pending> CRP (high sensitivity) <pending> Sed Rate <pending> [facility] 07/18/2023 [facility] [address] [place] [address] [phone] Glucose 115 mg/dL High 70-110 1 BUN 30 mg/dL High 6-25 Creatinine 0.9 mg/dL 0.5-1.2 Sodium 143 mEq/L 135-145 Potassium 4.9 mEq/L 3.5-5.0 Chloride 111 mEq/L High 95-107 Co-2 23 mEq/L Low 24-31 Calcium 9.7 mg/dL 8.5-10.6 GFR 67 ML/MIN/1.73SQM >60 1 STAT RESULTS CALLED AND FAXED TO JAMES Gilliland AT 3:17 ON 07/18/23 WK Procedures Date Code Description Status 10/10/2023 40441 Venipuncture Routine Complet ed 09/12/2023 G0283 Electrical Stimulation as Th erapy Plan Of Care Completed 09/12/2023 57686 Therapeutic Activities Direc t, Each 15 Minutes Completed 09/12/2023 64557 Therapeutic Procedure Group Completed 09/12/2023 18351 Manual Arc Welder Apprentice 1/> Area 15 Min Each Region Completed 09/12/2023 32292 Therapy Proc, Neuromuscular Reeducation Of Movement Completed 09/12/2023 78257 Hot/Cold Pack Completed 09/10/2023 97025 Manual Arc Welder Apprentice 1/> Area 15 Min Each Region Completed 09/10/2023 15438 Hot/Cold Pack Completed 09/10/2023 51150 Therapy Proc, Neuromuscular Reeducation Of Movement Completed 09/10/2023 65548 Therapeutic Procedure Group Completed 09/10/2023 00415 Therapeutic Activities Direc t, Each 15 Minutes Completed 09/10/2023 G0283 Electrical Stimulation as Th erapy Plan Of Care Completed 09/08/2023 G0283 Electrical Stimulation as Th erapy Plan Of Care Completed 09/08/2023 41373 Therapeutic Activities Direc t, Each 15 Minutes Completed 09/08/2023 89223 Therapeutic Procedure Group Completed 09/08/2023 05912 Manual Arc Welder Apprentice 1/> Area 15 Min Each Region Completed 09/08/2023 58781 Therapy Proc, Neuromuscular Reeducation Of Movement Completed 09/08/2023 14116 Hot/Cold Pack Completed 09/03/2023 29856 Therapy Proc, Neuromuscular Reeducation Of Movement Completed 09/03/2023 43891 Hot/Cold Pack Completed 09/03/2023 54434 Manual Arc Welder Apprentice 1/> Area 15 Min Each Region Completed 09/03/2023 G0283 Electrical Stimulation as Th erapy Plan Of Care Completed 09/03/2023 95999 Therapeutic Procedure Group Completed 09/01/2023 G0283 Electrical Stimulation as Th erapy Plan Of Care Completed 09/01/2023 40096 Therapeutic Activities Direc t, Each 15 Minutes Completed 09/01/2023 16375 Therapeutic Procedure Group Completed 09/01/2023 77834 Manual Arc Welder Apprentice 1/> Area 15 Min Each Region Completed 09/01/2023 60977 Therapy Proc, Neuromuscular Reeducation Of Movement Completed 09/01/2023 62740 Hot/Cold Pack Completed 08/27/2023 92326 Manual Arc Welder Apprentice 1/> Area 15 Min Each Region Completed 08/27/2023 57893 Hot/Cold Pack Completed 08/27/2023 10632 Therapy Proc, Neuromuscular Reeducation Of Movement Completed 08/27/2023 34331 Therapeutic Procedure Group Completed 08/27/2023 52298 Therapeutic Activities Direc t, Each 15 Minutes Completed 08/27/2023 G0283 Electrical Stimulation as Th erapy Plan Of Care Completed 08/26/2023 G0283 Electrical Stimulation as Th erapy Plan Of Care Completed 08/26/2023 67821 Therapeutic Activities Direc t, Each 15 Minutes Completed 08/26/2023 83833 Manual Arc Welder Apprentice 1/> Area 15 Min Each Region Completed 08/26/2023 36117 Therapy Proc, Neuromuscular Reeducation Of Movement Completed 08/26/2023 14514 Therapy Proc 1/> Area 15Min Ea Completed 08/26/2023 09928 Hot/Cold Pack Completed 08/25/2023 51131 Therapy Proc 1/> Area 15Min Ea Completed 08/25/2023 58801 Hot/Cold Pack Completed 08/25/2023 G0283 Electrical Stimulation as Th erapy Plan Of Care Completed 08/25/2023 60726 Manual Arc Welder Apprentice 1/> Area 15 Min Each Region Completed 08/25/2023 37356 Therapeutic Procedure Group Completed 08/25/2023 80422 Therapy Proc, Neuromuscular Reeducation Of Movement Completed 08/22/2023 G0283 Electrical Stimulation as Th erapy Plan Of Care Completed 08/22/2023 72265 Therapeutic Procedure Group Completed 08/22/2023 96714 Manual Arc Welder Apprentice 1/> Area 15 Min Each Region Completed 08/22/2023 60177 Therapy Proc, Neuromuscular Reeducation Of Movement Completed 08/22/2023 07819 Therapy Proc 1/> Area 15Min Ea Completed 08/22/2023 65667 Hot/Cold Pack Completed 08/20/2023 96242 Therapy Proc, Neuromuscular Reeducation Of Movement Completed 08/20/2023 61569 Hot/Cold Pack Completed 08/20/2023 09595 Therapy Proc 1/> Area 15Min Ea Completed 08/20/2023 36598 Manual Arc Welder Apprentice 1/> Area 15 Min Each Region Completed 08/20/2023 G0283 Electrical Stimulation as Th erapy Plan Of Care Completed 08/18/2023 G0283 Electrical Stimulation as Th erapy Plan Of Care Completed 08/18/2023 56018 Therapeutic Procedure Group Completed 08/18/2023 20242 Manual Arc Welder Apprentice 1/> Area 15 Min Each Region Completed 08/18/2023 66748 Therapy Proc, Neuromuscular Reeducation Of Movement Completed 08/18/2023 38838 Therapy Proc 1/> Area 15Min Ea Completed 08/18/2023 78379 Hot/Cold Pack Completed 08/15/2023 G0283 Electrical Stimulation as Th erapy Plan Of Care Completed 08/15/2023 42470 Hot/Cold Pack Completed 08/15/2023 92678 Therapy Proc 1/> Area 15Min Ea Completed 08/15/2023 23371 Manual Arc Welder Apprentice 1/> Area 15 Min Each Region Completed 08/15/2023 37513 Therapeutic Procedure Group Completed 08/15/2023 59685 Therapy Proc, Neuromuscular Reeducation Of Movement Completed 08/14/2023 49339 Hot/Cold Pack Completed 08/14/2023 46144 Therapy Proc 1/> Area 15Min Ea Completed 08/14/2023 77518 Therapy Proc, Neuromuscular Reeducation Of Movement Completed 08/14/2023 91036 Manual Arc Welder Apprentice 1/> Area 15 Min Each Region Completed 08/14/2023 58670 Therapeutic Procedure Group Completed 08/14/2023 G0283 Electrical Stimulation as Th erapy Plan Of Care Completed 08/12/2023 05649 Physical Therapy Evaluation Low Complexity Completed 08/12/2023 13074 Manual Arc Welder Apprentice 1/> Area 15 Min Each Region Completed 08/12/2023 14201 Therapy Proc 1/> Area 15Min Ea Completed 07/28/2023 1111F D/C Medications Reconciled W/Current Medications In Outpt MR Completed 07/18/2023 74654 Venipuncture Routine Complet ed 09/05/2022 [id number] Bone Mineral Density Test Co mpleted 09/05/2022 53860635 Mammogram Completed 08/07/2018 29830644 Colonoscopy Completed Medical Devices Description No Information Available Encounters Type Date Location Provider Dx Diagnosis Office Visit 07/18/2023 9:00a [place] [facility] Z01.818 Encounter for other preprocedural examination Office Visit 05/19/2023 10:45a [place] Mushtaq Gee PA-C M25.561 Pain in right knee M17.0 Bilateral primary os teoarthritis of knee Assessments Date Code Description Provider 10/10/2023 E66.01 Morbid (severe) obesity due to excess calories Lab - [place] 10/10/2023 D47.3 Essential (hemorrhagic) thro mbocythemia Lab - [place] 10/10/2023 Z13.6 Encounter for sc reening for cardiovascular disorders Lab - [place] 10/10/2023 E55.9 Vitamin D deficiency, unspec ified Lab - [place] 10/10/2023 E83.51 Hypocalcemia Lab - [facility] 10/10/2023 Z78.9 Other specified health statu s Lab - [place] 09/12/2023 M25.561 Pain in right knee Jcarlos [...] in right knee Jordan Morataya gavialbaro, DPT 09/01/2023 Z47.1 Aftercare follow ing joint replacement surgery Jordan Villareal [place], DPT 08/27/2023 M25.561 Pain in right knee Jcarlos Bailey, DPT 08/27/2023 Z47.1 Aftercare follow ing joint replacement surgery Jcarlos Bailey, DPT 08/26/2023 M25.561 Pain in right knee Jordan Villareal Rafia gaticaalbaro, DPT 08/26/2023 Z47.1 Aftercare follow ing joint replacement surgery Jordan Villareal Abdirahman, DPT 08/25/2023 M25.561 Pain in right [...] 08/14/2023 M25.561 Pain in right knee Jordan Villareal Rafia mullins, DPT 08/14/2023 Z47.1 Aftercare follow ing joint replacement surgery Jordan B Abdirahman, DPT 08/12/2023 M25.561 Pain in right knee Jordan Villareal Rafia mullins, DPT 08/12/2023 Z47.1 Aftercare follow ing joint replacement surgery Jordan B Abdirahman, DPT 07/28/2023 M17.0 Bilateral primary osteoarthr itis of knee Joy Juan MD, PhD 07/18/2023 Z01.818 Encounter for ot her preprocedural examination [facility] 05/19/2023 M25.561 Pain in right knee Mushtaq elizabeth PA-C 05/19/2023 M17.0 Bilateral primary osteoarthr itis of knee Mushtaq Gee PA-C Plan of Treatment Future Appointment(s):* 10/17/2023 6:30 am - [place] * 10/31/2023 11:00 am - [facility] at [place] 07/18/2023 - [facility]* Z01.818 Encounter for [...]
--- OUTSIDE RECORDS SUMMARY | 2023-11-04 15:45 | External Medical Summary | Continuity of Care Document ---
Author Name Unknown Organization [facility] er, Address [address] [place] [address] Phone [phone] Problems Description No Active Problems Social History [...] hours as needed Andrew Juares MD 07/26/2023 Gaflgycoba681bd Capsules 1 tablet by mouth twice a day Andrew Juares MD 07/26/2023 Anqpspyizez2sn Tablets Dispers 1 tablet every 8 hours as needed for nausea Andrew Juares MD 07/26/2023 Ketorolac Enxxbtlkzjxt16el Tablets 1 tablet by mouth three times a day Andrew Juares MD 07/26/2023 Diclofenac Sodium1% Gel apply 4 grams externally to right knee 4 times daily for pain 300gm M25.561 Jimy Casanova JR, DO 05/19/2023 Alendronate Qwiyox79gc Tablets Take 1 Tablet Once Weekly 30 Minutes Before Breakfast With 8Oz Of Water. Remain Upright For 60 Minutes After Taking Medication. 12tabs [facility] 09/13/2022 Wfihliaagd16ll Tablets Take 1 Tablet Daily 90tabs Joy dc MD, PhD 11/12/2019 Pzmrjrdljsqgwu94nn Tablets Take 1 Tablet Daily 90tabs [facility] 10/02/2018 Calcium + C8Czmgrvi 1 po qd Joy Juan MD, PhD Osteo Bi-Flex Regular Jytnikhx169-189ge Tablets 2 in the in the morning Unknown Diclofenac Iiyzsg33ei Tablets DR 1 by mouth twice a day 90tabs [facility] Aspirin 81 Low Qcva10hj Chewtabs 1 by mouth every day Unknown History Medications Pdsjxghycn05vt Tablets 4 tabs po qd x 2 days, 3 tabs po qd x 2 days, 2 tabs po qd x 2 days, 1 tab po qd x 2 days 20tabs M25.561 Jimy Casanova JR, DO 05/19/2023 - 05/27/2023 Immunizations CPT Code Status Date Vaccine Lot # [id number] Given 07/04/2023 Influenza Vaccine High Do se 0.5ML Age 65 & > 43932 Given 07/24/2022 Influenza Vaccine High Do se 0.5ML Age 65 & > [id number] 32608 Given 07/24/2022 Pneumococcal Conjugate-Pr evnar 20 [id number] 74555 Given 08/09/2021 Influenza Virus Vaccine, Quadrivalent (Cciiv4), Derived From Cell 63304 Given 03/27/2020 Shingrix 09624 Given 12/06/2019 Shingrix 92151 Given 08/05/2019 Influenza Vacci ne Quadrivalent Preser/Antibiotic Free Im Use 10194 Given 11/03/2018 Tdap (Tetanus, diphtheria & acel. pertussis) Adacel or Boostrix 50715 Given 07/10/2018 Influenza Virus Vaccine, Quadrivalent, Im Use 89944 Given 08/07/2017 Influenza Virus Vaccine, Quadrivalent, Im Use 21098 Given 07/15/2016 Influenza Virus Vaccine, Quadrivalent, [place] Use 81841 Given 06/29/2014 Influenza Vac, Split 3 Yr s And Up [id number] 23566 Given 06/07/2014 Zostavax Vaccine 39891 Given 07/28/2013 Influenza Vac, Split 3 Yr s And Up 18950 Given 07/24/2012 Pneumococcal Vaccine/Pneu movax 23 37106 Refused 01/23/2023 Moderna Sars-Co v-2 (Cov-19) vacc,100 mcg/ 0.5 mL 12Y+EMR Doc Only 42069 Refused 01/09/2022 Moderna Sars-Co v-2 (Cov-19) vacc,100 mcg/ 0.5 mL 12Y+EMR Doc Only 36383 Refused 12/26/2020 Moderna Sars-Co v-2 (Cov-19) vacc,100 mcg/ 0.5 mL 12Y+EMR Doc Only 56567 Refused 06/02/2020 Influenza Virus Vaccine, Quadrivalent, Im Use 06597 Refused 06/16/2019 Influenza Virus Vaccine, Quadrivalent, [place] Use 58170 Refused 10/02/2018 Tdap (Tetanus, diphtheria & acel. pertussis) Adacel or Boostrix 90418 Refused 01/24/2016 Tetanus Toxoid 10928 Refused 01/24/2016 Influenza Virus Vaccine, Quadrivalent, Im Use 86790 Refused 01/04/2015 Tdap (Tetanus, diphtheria & acel. pertussis) Adacel or Boostrix Vital Signs Date Vital Result Comment 07/18/2023 9:07am BP Systolic 130 mmHg BP Diastolic 70 mmHg Body Temperature 97.9 F Heart Rate 72 /min Respiratory Rate 18 /min Weight 227.00 lb Weight 102.967 kg Height 61 inches 5'1" BMI (Body Mass Index) 42.9 kg/m2 [place] Body Weight 105 lb 05/19/2023 10:38am BP Systolic 120 mmHg BP Diastolic 76 mmHg Body Temperature 97.3 F Heart Rate 74 /min Respiratory Rate 18 /min Weight 223.38 lb Weight 101.323 kg Results Test Acquired Date Facility Test Result H/L Range N ote BMP 07/18/2023 [facility]. [address] [place] [address] [phone] Glucose 115 mg/dL High 70-110 1 BUN 30 mg/dL High 6-25 Creatinine 0.9 mg/dL 0.5-1.2 Sodium 143 mEq/L 135-145 Potassium 4.9 mEq/L 3.5-5.0 Chloride 111 mEq/L High 95-107 Co-2 23 mEq/L Low 24-31 Calcium 9.7 mg/dL 8.5-10.6 GFR 67 ML/MIN/1.73SQM >60 1 STAT RESULTS CALLED AND FAXED TO JAMES Gilliland AT 3:17 ON 07/18/23 WK Procedures Date Code Description Status 09/08/2023 50874 Therapeutic Activities Direc t, Each 15 Minutes Completed 09/08/2023 20882 Therapeutic Procedure Group Completed 09/08/2023 67670 Manual [place] Packer 1/> Area 15 Min Each Region Completed 09/08/2023 85361 Therapy Proc, Neuromuscular Reeducation Of Movement Completed 09/08/2023 10190 Hot/Cold Pack Completed 09/08/2023 G0283 Electrical Stimulation as Th erapy Plan Of Care Completed 09/03/2023 49302 Hot/Cold Pack Completed 09/03/2023 91849 Therapy Proc, Neuromuscular Reeducation Of Movement Completed 09/03/2023 50298 Manual [place] Packer 1/> Area 15 Min Each Region Completed 09/03/2023 75605 Therapeutic Procedure Group Completed 09/03/2023 G0283 Electrical Stimulation as Th erapy Plan Of Care Completed 09/01/2023 G0283 Electrical Stimulation as Th erapy Plan Of Care Completed 09/01/2023 49992 Therapeutic Activities Direc t, Each 15 Minutes Completed 09/01/2023 28829 Therapeutic Procedure Group Completed 09/01/2023 81009 Manual [place] Packer 1/> Area 15 Min Each Region Completed 09/01/2023 03244 Therapy Proc, Neuromuscular Reeducation Of Movement Completed 09/01/2023 92340 Hot/Cold Pack Completed 08/27/2023 57764 Therapeutic Procedure Group Completed 08/27/2023 57653 Hot/Cold Pack Completed 08/27/2023 15932 Therapy Proc, Neuromuscular Reeducation Of Movement Completed 08/27/2023 08201 Manual [place] Packer 1/> Area 15 Min Each Region Completed 08/27/2023 95586 Therapeutic Activities Direc t, Each 15 Minutes Completed 08/27/2023 G0283 Electrical Stimulation as Th erapy Plan Of Care Completed 08/26/2023 G0283 Electrical Stimulation as Th erapy Plan Of Care Completed 08/26/2023 23065 Therapeutic Activities Direc t, Each 15 Minutes Completed 08/26/2023 13934 Manual [place] Packer 1/> Area 15 Min Each Region Completed 08/26/2023 05672 Therapy Proc, Neuromuscular Reeducation Of Movement Completed 08/26/2023 85687 Therapy Proc 1/> Area 15Min Ea Completed 08/26/2023 13132 Hot/Cold Pack Completed 08/25/2023 G0283 Electrical Stimulation as Th erapy Plan Of Care Completed 08/25/2023 74245 Therapeutic Procedure Group Completed 08/25/2023 82593 Manual [place] Packer 1/> Area 15 Min Each Region Completed 08/25/2023 01160 Therapy Proc, Neuromuscular Reeducation Of Movement Completed 08/25/2023 36321 Therapy Proc 1/> Area 15Min Ea Completed 08/25/2023 90486 Hot/Cold Pack Completed 08/22/2023 43250 Therapy Proc 1/> Area 15Min Ea Completed 08/22/2023 08100 Hot/Cold Pack Completed 08/22/2023 83747 Therapeutic Procedure Group Completed 08/22/2023 04421 Manual [place] Packer 1/> Area 15 Min Each Region Completed 08/22/2023 21322 Therapy Proc, Neuromuscular Reeducation Of Movement Completed 08/22/2023 G0283 Electrical Stimulation as Th erapy Plan Of Care Completed 08/20/2023 G0283 Electrical Stimulation as Th erapy Plan Of Care Completed 08/20/2023 86770 Manual [place] Packer 1/> Area 15 Min Each Region Completed 08/20/2023 43839 Therapy Proc, Neuromuscular Reeducation Of Movement Completed 08/20/2023 94846 Therapy Proc 1/> Area 15Min Ea Completed 08/20/2023 23655 Hot/Cold Pack Completed 08/18/2023 G0283 Electrical Stimulation as Th erapy Plan Of Care Completed 08/18/2023 92598 Therapeutic Procedure Group Completed 08/18/2023 22710 Manual [place] Packer 1/> Area 15 Min Each Region Completed 08/18/2023 71907 Therapy Proc, Neuromuscular Reeducation Of Movement Completed 08/18/2023 37292 Therapy Proc 1/> Area 15Min Ea Completed 08/18/2023 13428 Hot/Cold Pack Completed 08/15/2023 39000 Hot/Cold Pack Completed 08/15/2023 11064 Therapy Proc 1/> Area 15Min Ea Completed 08/15/2023 48735 Therapy Proc, Neuromuscular Reeducation Of Movement Completed 08/15/2023 21251 Therapeutic Procedure Group Completed 08/15/2023 G0283 Electrical Stimulation as Th erapy Plan Of Care Completed 08/15/2023 86509 Manual [place] Packer 1/> Area 15 Min Each Region Completed 08/14/2023 85182 Hot/Cold Pack Completed 08/14/2023 93114 Therapy Proc 1/> Area 15Min Ea Completed 08/14/2023 95942 Therapy Proc, Neuromuscular Reeducation Of Movement Completed 08/14/2023 47603 Manual [place] Packer 1/> Area 15 Min Each Region Completed 08/14/2023 91974 Therapeutic Procedure Group Completed 08/14/2023 G0283 Electrical Stimulation as Th erapy Plan Of Care Completed 08/12/2023 27291 Physical Therapy Evaluation Low Complexity Completed 08/12/2023 82148 Manual [place] Packer 1/> Area 15 Min Each Region Completed 08/12/2023 07348 Therapy Proc 1/> Area 15Min Ea Completed 07/28/2023 1111F D/C Medications Reconciled W/Current Medications In Outpt MR Completed 07/18/2023 29870 Venipuncture Routine Complet ed 09/05/2022 [id number] Bone Mineral Density Test Co mpleted 09/05/2022 [id number] Mammogram Completed 08/07/2018 [id number] Colonoscopy Completed Medical Devices Description No Information [...] 10/24/2023 8:00 am - [facility] [place] * 10/10/2023 8:00 am - [place] 07/18/2023 - [facility]* Z01.818 Encounter for [...]
--- OUTSIDE RECORDS SUMMARY | 2023-11-04 15:45 | External Medical Summary ---
Author Name Unknown Address Unknown Organization K1C:[facility] [address] [place] [id number] Laboratory Report Ordering Provider Test Date Status LAURA PORTERMEJIA 10/10/2023 07:52 Final Observation Date Value Abnormality Reference (Units ) Status C-REACTIVE PROT 10/10/2023 14:52 0.621 0.000-0 .700 (mg/dl) Final Performing Location [facility] [address] [place] [address]
--- OUTSIDE RECORDS SUMMARY | 2023-11-04 15:45 | External Medical Summary | Continuity of Care Document ---
Author Name Unknown Organization [facility], Address [address] [place] [address] Phone [phone] Problems Description No Active Problems Social History [...] hours as needed Andrew Juares MD 07/26/2023 Qqffaputly840hg Capsules 1 tablet by mouth twice a day Andrew Juares MD 07/26/2023 Jlzjqwkqupm6dx Tablets Dispers 1 tablet every 8 hours as needed for nausea Andrew Juares MD 07/26/2023 Ketorolac Nrvvnpdaphgt12ez Tablets 1 tablet by mouth three times a day Andrew Juares MD 07/26/2023 Diclofenac Sodium1% Gel apply 4 grams externally to right knee 4 times daily for pain 300gm M25.561 Jimy Casanova JR, DO 05/19/2023 Alendronate Dqxvtf64ov Tablets Take 1 Tablet Once Weekly 30 Minutes Before Breakfast With 8Oz Of Water. Remain Upright For 60 Minutes After Taking Medication. 12tabs [facility] 09/13/2022 Wudmlrmpqo25iw Tablets Take 1 Tablet Daily 90tabs Joy dc MD, PhD 11/12/2019 Uexrqrhbaxmzki15sp Tablets Take 1 Tablet Daily 90tabs [facility] 10/02/2018 Calcium + O9Ebnxvye 1 po qd Joy Juan MD, PhD Osteo Bi-Flex Regular Sovetlpj417-815dm Tablets 2 in the in the morning Unknown Diclofenac Zfstlc69bl Tablets DR 1 by mouth twice a day 90tabs [facility] Aspirin 81 Low Hxdi14yo Chewtabs 1 by mouth every day Unknown History Medications Azoaccocrc60yg Tablets 4 tabs po qd x 2 days, 3 tabs po qd x 2 days, 2 tabs po qd x 2 days, 1 tab po qd x 2 days 20tabs M25.561 Jimy Casanova JR, DO 05/19/2023 - 05/27/2023 Immunizations CPT Code Status Date Vaccine Lot # [id number] Given 07/04/2023 Influenza Vaccine High Do se 0.5ML Age 65 & > 69133 Given 07/24/2022 Influenza Vaccine High Do se 0.5ML Age 65 & > [id number] 85553 Given 07/24/2022 Pneumococcal Conjugate-Pr evnar 20 [id number] 79887 Given 08/09/2021 Influenza Virus Vaccine, Quadrivalent (Cciiv4), Derived From Cell 30644 Given 03/27/2020 Shingrix 95523 Given 12/06/2019 Shingrix 70982 Given 08/05/2019 Influenza Vacci ne Quadrivalent Preser/Antibiotic Free Im Use 01327 Given 11/03/2018 Tdap (Tetanus, diphtheria & acel. pertussis) Adacel or Boostrix 27644 Given 07/10/2018 Influenza Virus Vaccine, Quadrivalent, Im Use 09045 Given 08/07/2017 Influenza Virus Vaccine, Quadrivalent, Im Use 46818 Given 07/15/2016 Influenza Virus Vaccine, Quadrivalent, Im Use 82409 Given 06/29/2014 Influenza Vac, Split 3 Yr s And Up [id number] 04786 Given 06/07/2014 Zostavax Vaccine 52207 Given 07/28/2013 Influenza Vac, Split 3 Yr s And Up 27670 Given 07/24/2012 Pneumococcal Vaccine/Pneu movax 23 47264 Refused 01/23/2023 Moderna Sars-Co v-2 (Cov-19) vacc,100 mcg/ 0.5 mL 12Y+EMR Doc Only 73750 Refused 01/09/2022 Moderna Sars-Co v-2 (Cov-19) vacc,100 mcg/ 0.5 mL 12Y+EMR Doc Only 26150 Refused 12/26/2020 Moderna Sars-Co v-2 (Cov-19) vacc,100 mcg/ 0.5 mL 12Y+EMR Doc Only 21604 Refused 06/02/2020 Influenza Virus Vaccine, Quadrivalent, Im Use 09625 Refused 06/16/2019 Influenza Virus Vaccine, Quadrivalent, [place] Use 09257 Refused 10/02/2018 Tdap (Tetanus, diphtheria & acel. pertussis) Adacel or Boostrix 17724 Refused 01/24/2016 Tetanus Toxoid 49765 Refused 01/24/2016 Influenza Virus Vaccine, Quadrivalent, Im Use 20525 Refused 01/04/2015 Tdap (Tetanus, diphtheria & acel. pertussis) Adacel or Boostrix Vital Signs Date Vital Result Comment 07/18/2023 9:07am BP Systolic 130 mmHg BP Diastolic 70 mmHg Body Temperature 97.9 F Heart Rate 72 /min Respiratory Rate 18 /min Weight 227.00 lb Weight 102.967 kg Height 61 inches 5'1" BMI (Body Mass Index) 42.9 kg/m2 [place] Body Weight 105 lb 05/19/2023 10:38am BP Systolic 120 mmHg BP Diastolic 76 mmHg Body Temperature 97.3 F Heart Rate 74 /min Respiratory Rate 18 /min Weight 223.38 lb Weight 101.323 kg Results Test Acquired Date Facility Test Result H/L Range N ote BMP 07/18/2023 [facility]. [address] [place] [address] [phone] Glucose 115 mg/dL High 70-110 1 BUN 30 mg/dL High 6-25 Creatinine 0.9 mg/dL 0.5-1.2 Sodium 143 mEq/L 135-145 Potassium 4.9 mEq/L 3.5-5.0 Chloride 111 mEq/L High 95-107 Co-2 23 mEq/L Low 24-31 Calcium 9.7 mg/dL 8.5-10.6 GFR 67 ML/MIN/1.73SQM >60 1 STAT RESULTS CALLED AND FAXED TO JAMES Gilliland AT 3:17 ON 07/18/23 WK Procedures Date Code Description Status 09/10/2023 99643 Therapeutic Activities Direc t, Each 15 Minutes Completed 09/10/2023 24280 Therapeutic Procedure Group Completed 09/10/2023 06755 Manual [employer] Heater 1/> Area 15 Min Each Region Completed 09/10/2023 72926 Therapy Proc, Neuromuscular Reeducation Of Movement Completed 09/10/2023 84880 Hot/Cold Pack Completed 09/10/2023 G0283 Electrical Stimulation as Th erapy Plan Of Care Completed 09/08/2023 13735 Therapy Proc, Neuromuscular Reeducation Of Movement Completed 09/08/2023 45771 Hot/Cold Pack Completed 09/08/2023 65006 Manual [employer] Heater 1/> Area 15 Min Each Region Completed 09/08/2023 41186 Therapeutic Procedure Group Completed 09/08/2023 06276 Therapeutic Activities Direc t, Each 15 Minutes Completed 09/08/2023 G0283 Electrical Stimulation as Th erapy Plan Of Care Completed 09/03/2023 G0283 Electrical Stimulation as Th erapy Plan Of Care Completed 09/03/2023 95690 Therapeutic Procedure Group Completed 09/03/2023 18676 Manual [employer] Heater 1/> Area 15 Min Each Region Completed 09/03/2023 17225 Therapy Proc, Neuromuscular Reeducation Of Movement Completed 09/03/2023 65236 Hot/Cold Pack Completed 09/01/2023 11701 Therapeutic Procedure Group Completed 09/01/2023 48137 Hot/Cold Pack Completed 09/01/2023 33878 Therapy Proc, Neuromuscular Reeducation Of Movement Completed 09/01/2023 89087 Manual [employer] Heater 1/> Area 15 Min Each Region Completed 09/01/2023 01526 Therapeutic Activities Direc t, Each 15 Minutes Completed 09/01/2023 G0283 Electrical Stimulation as Th erapy Plan Of Care Completed 08/27/2023 G0283 Electrical Stimulation as Th erapy Plan Of Care Completed 08/27/2023 84250 Therapeutic Activities Direc t, Each 15 Minutes Completed 08/27/2023 10395 Therapeutic Procedure Group Completed 08/27/2023 88754 Manual [employer] Heater 1/> Area 15 Min Each Region Completed 08/27/2023 52363 Therapy Proc, Neuromuscular Reeducation Of Movement Completed 08/27/2023 19128 Hot/Cold Pack Completed 08/26/2023 G0283 Electrical Stimulation as Th erapy Plan Of Care Completed 08/26/2023 74436 Therapeutic Activities Direc t, Each 15 Minutes Completed 08/26/2023 56151 Manual [employer] Heater 1/> Area 15 Min Each Region Completed 08/26/2023 88028 Therapy Proc, Neuromuscular Reeducation Of Movement Completed 08/26/2023 66564 Therapy Proc 1/> Area 15Min Ea Completed 08/26/2023 48497 Hot/Cold Pack Completed 08/25/2023 37074 Therapy Proc, Neuromuscular Reeducation Of Movement Completed 08/25/2023 48004 Hot/Cold Pack Completed 08/25/2023 10307 Therapy Proc 1/> Area 15Min Ea Completed 08/25/2023 79369 Therapeutic Procedure Group Completed 08/25/2023 G0 Electrical Stimulation as Th erapy Plan Of Care Completed 08/25/2023 47059 Manual [employer] Heater 1/> Area 15 Min Each Region Completed 08/22/2023 G028 Electrical Stimulation as Th erapy Plan Of Care Completed 08/22/2023 69284 Therapeutic Procedure Group Completed 08/22/2023 46742 Manual [employer] Heater 1/> Area 15 Min Each Region Completed 08/22/2023 02141 Therapy Proc, Neuromuscular Reeducation Of Movement Completed 08/22/2023 95486 Therapy Proc 1/> Area 15Min Ea Completed 08/22/2023 43090 Hot/Cold Pack Completed 08/20/2023 34309 Therapy Proc, Neuromuscular Reeducation Of Movement Completed 08/20/2023 57805 Hot/Cold Pack Completed 08/20/2023 86729 Therapy Proc 1/> Area 15Min Ea Completed 08/20/2023 05754 Manual [employer] Heater 1/> Area 15 Min Each Region Completed 08/20/2023 G028 Electrical Stimulation as Th erapy Plan Of Care Completed 08/18/2023 G028 Electrical Stimulation as Th erapy Plan Of Care Completed 08/18/2023 64511 Therapeutic Procedure Group Completed 08/18/2023 10323 Manual [employer] Heater 1/> Area 15 Min Each Region Completed 08/18/2023 09509 Therapy Proc, Neuromuscular Reeducation Of Movement Completed 08/18/2023 15204 Therapy Proc 1/> Area 15Min Ea Completed 08/18/2023 86573 Hot/Cold Pack Completed 08/15/2023 G0283 Electrical Stimulation as Th erapy Plan Of Care Completed 08/15/2023 02428 Hot/Cold Pack Completed 08/15/2023 86425 Therapy Proc 1/> Area 15Min Ea Completed 08/15/2023 15375 Manual [employer] Heater 1/> Area 15 Min Each Region Completed 08/15/2023 89483 Therapeutic Procedure Group Completed 08/15/2023 56035 Therapy Proc, Neuromuscular Reeducation Of Movement Completed 08/14/2023 09222 Hot/Cold Pack Completed 08/14/2023 84706 Therapy Proc 1/> Area 15Min Ea Completed 08/14/2023 16455 Therapy Proc, Neuromuscular Reeducation Of Movement Completed 08/14/2023 82368 Manual [employer] Heater 1/> Area 15 Min Each Region Completed 08/14/2023 68647 Therapeutic Procedure Group Completed 08/14/2023 G0283 Electrical Stimulation as Th erapy Plan Of Care Completed 08/12/2023 39761 Physical Therapy Evaluation Low Complexity Completed 08/12/2023 83223 Manual [employer] Heater 1/> Area 15 Min Each Region Completed 08/12/2023 03651 Therapy Proc 1/> Area 15Min Ea Completed 07/28/2023 1111F D/C Medications Reconciled W/Current Medications In Outpt MR Completed 07/18/2023 85073 Venipuncture Routine Complet ed 09/05/2022 [id number] Bone Mineral Density Test Co mpleted 09/05/2022 09844589 Mammogram Completed 08/07/2018 [id number] Colonoscopy Completed Medical Devices Description No Information Available Encounters Type Date Location Provider Dx Diagnosis Office Visit 07/18/2023 9:00a [facility] Z01.818 Encounter for other preprocedural examination Office Visit 05/19/2023 10:45a Maggy Gee PA-C M25.561 Pain in right knee M17.0 Bilateral primary os teoarthritis of knee Assessments Date Code Description Provider 09/10/2023 M25.561 Pain in right knee Jordan mullins DPT 09/10/2023 Z47.1 Aftercare follow ing joint replacement surgery Jordan Gary DPT 09/08/2023 M25.561 Pain in right knee [...] DPT 08/25/2023 M25.561 Pain in right knee Rastafari Bailey, DPT 08/25/2023 Z47.1 Aftercare follow ing joint replacement surgery Jcarlos Bailey, DPT 08/22/2023 M25.561 Pain in right knee Jcarlos Bailey, DPT 08/22/2023 Z47.1 Aftercare follow ing joint replacement surgery Jcarlos Bailey, DPT 08/20/2023 M25.561 Pain in right knee Jcarlos Bailey, DPT 08/20/2023 Z47.1 Aftercare follow ing joint replacement surgery Jcarlos Bailey, DPT 08/18/2023 M25.561 Pain in right knee Jacrlos Bailey, DPT 08/18/2023 Z47.1 Aftercare follow ing [...] 10/24/2023 8:00 am - [facility] [place] * 10/10/2023 8:00 [place] 07/[place]/2023 - [facility]* Z01.818 Encounter for [...]
--- OUTSIDE RECORDS SUMMARY | 2023-11-04 15:45 | External Medical Summary | Continuity of Care Document ---
Author Name Unknown Organization [facility] er, Address [address] [place] [address] Phone [phone] Problems Description No Active Problems Social History [...] hours as needed Andrew Juares MD 07/26/2023 Vzdyxcjvbz719by Capsules 1 tablet by mouth twice a day Andrew Juares MD 07/26/2023 Zafzeqlkuej9de Tablets Dispers 1 tablet every 8 hours as needed for nausea Andrew Juares MD 07/26/2023 Ketorolac Gejaqjtvfmxn63hk Tablets 1 tablet by mouth three times a day Andrew Juares MD 07/26/2023 Diclofenac Sodium1% Gel apply 4 grams externally to right knee 4 times daily for pain 300gm M25.561 Jimy Casanova JR, DO 05/19/2023 Alendronate Yjdlbb58ld Tablets Take 1 Tablet Once Weekly 30 Minutes Before Breakfast With 8Oz Of Water. Remain Upright For 60 Minutes After Taking Medication. 12tabs [facility] 09/13/2022 Zvjwpgxswe11iv Tablets Take 1 Tablet Daily 90tabs Joy dc MD, PhD 11/12/2019 Itgnazqlgoynjy09xr Tablets Take 1 Tablet Daily 90tabs [facility] 10/02/2018 Calcium + D3Rezxwgr 1 po qd Joy Juan MD, PhD Osteo Bi-Flex Regular Atgvkeha147-450io Tablets 2 in the in the morning Unknown Diclofenac Cifjcg53wj Tablets DR 1 by mouth twice a day 90tabs [facility] Aspirin 81 Low Fvzx26qv Chewtabs 1 by mouth every day Unknown History Medications Lsxovxxdaq83lr Tablets 4 tabs po qd x 2 days, 3 tabs po qd x 2 days, 2 tabs po qd x 2 days, 1 tab po qd x 2 days 20tabs M25.561 Jimy Casanova JR, DO 05/19/2023 - 05/27/2023 Immunizations CPT Code Status Date Vaccine Lot # [id number] Given 07/04/2023 Influenza Vaccine High Do se 0.5ML Age 65 & > 31927 Given 07/24/2022 Influenza Vaccine High Do se 0.5ML Age 65 & > [id number] 58997 Given 07/24/2022 Pneumococcal Conjugate-Pr evnar 20 [id number] 05890 Given 08/09/2021 Influenza Virus Vaccine, Quadrivalent (Cciiv4), Derived From Cell 86893 Given 03/27/2020 Shingrix 18559 Given 12/06/2019 Shingrix 24220 Given 08/05/2019 Influenza Vacci ne Quadrivalent Preser/Antibiotic [place] 62596 Given 11/03/2018 Tdap (Tetanus, diphtheria & acel. pertussis) Adacel or Boostrix 28904 Given 07/10/2018 Influenza Virus Vaccine, Quadrivalent, Im Use 82688 Given 08/07/2017 Influenza Virus Vaccine, Quadrivalent, Im Use 59577 Given 07/15/2016 Influenza Virus Vaccine, Quadrivalent, [place] Use 74047 Given 06/29/2014 Influenza Vac, Split 3 Yr s And Up [id number] 48745 Given 06/07/2014 Zostavax Vaccine 21511 Given 07/28/2013 Influenza Vac, Split 3 Yr s And Up 08809 Given 07/24/2012 Pneumococcal Vaccine/Pneu movax 23 14819 Refused 01/23/2023 Moderna Sars-Co v-2 (Cov-19) vacc,100 mcg/ 0.5 mL 12Y+EMR Doc Only 32421 Refused 01/09/2022 Moderna Sars-Co v-2 (Cov-19) vacc,100 mcg/ 0.5 mL 12Y+EMR Doc Only 20956 Refused 12/26/2020 Moderna Sars-Co v-2 (Cov-19) vacc,100 mcg/ 0.5 mL 12Y+EMR Doc Only 69840 Refused 06/02/2020 Influenza Virus Vaccine, Quadrivalent, [place] Use 97286 Refused 06/16/2019 Influenza Virus Vaccine, Quadrivalent, Im Use 67766 Refused 10/02/2018 Tdap (Tetanus, diphtheria & acel. pertussis) Adacel or Boostrix 29795 Refused 01/24/2016 Tetanus Toxoid 18100 Refused 01/24/2016 Influenza Virus Vaccine, Quadrivalent, [place] Use 29135 Refused 01/04/2015 Tdap (Tetanus, diphtheria & acel. pertussis) Adacel or Boostrix Vital Signs Date Vital Result Comment 07/18/2023 9:07am BP Systolic 130 mmHg BP Diastolic 70 mmHg Body Temperature 97.9 F Heart Rate 72 /min Respiratory Rate 18 /min Weight 227.00 lb Weight 102.967 kg Height 61 inches 5'1" BMI (Body Mass Index) 42.9 kg/m2 [place] Body Weight 105 lb 05/19/2023 10:38am BP Systolic 120 mmHg BP Diastolic 76 mmHg Body Temperature 97.3 F Heart Rate 74 /min Respiratory Rate 18 /min Weight 223.38 lb Weight 101.323 kg Results Test Acquired Date Facility Test Result H/L Range N ote Comp. Met 10/10/2023 [facility]. [address] [place] [address] [phone] Glucose 110 mg/dL 70-110 BUN 22 mg/dL [...] 2.0-3.4 GFR 76 ML/MIN/1.73SQM >60 Lipid 10/10/2023 [facility]. [address] [place] [address] [phone] Cholesterol 211 mg/dL High 0-200 1 Triglyceride 144 mg/dL 0-150 2 HDLD 61 mg/dL See Comment 3 Measured LDL 137 mg/dL High 0-130 4 Calc VLDL 28.8 mg/dL See Comment 5 Chol/HDL 3.5 RATIO See Comment 6 Non-HDL 150 mg/dL See Comment 7 CBC W/Diff 10/10/2023 [facility]. [address] [place], [place] [id number] [phone] WBC 9.2 10^3/M3 3.1-9.2 RBC 4.49 10^6/M3 3.70-5.50 HGB 13.7 GR/DL 11.5-16.1 HCT 41.2 % 34.5-47.8 MCV 91.9 CUMICR 82.6-95.8 MCH 30.5 PICOGR 27.9-32.9 MCHC 33.2 % 32.6-35.4 RDW 14.6 % 11.4-14.6 PLT 452 10^3/M3 High 140-350 MPV 7.6 CUMICR 7.0-10.6 %Neut 65.5 % 40.0-75.0 %Lymph 22.6 % 17.0-45.0 %Heard 9.4 % 1.0-11.0 %Eos 1.4 % 0.0-6.0 %Baso 1.1 % 0.0-2.0 #Neut 6.0 10^3/M3 1.5-8.0 #Lymph 2.1 10^3/M3 0.8-3.2 #Heard 0.9 10^3/M3 High 0.0-0.8 #Eos 0.1 10^3/m3 0.0-0.4 #Baso 0.1 10^3/m3 0.0-0.2 Laboratory test finding 10/10/2023 [facility]. [address] [place], [place] [id number] [phone] Vitd-25Oh 33 ng/mL 30-100 C-Reactive Prot 0.621 mg/dL 0.000-0.700 Sed Rate 8 0-20 BMP 07/18/2023 [facility] [address] [place] [address] [phone] Glucose 115 mg/dL High 70-110 8 BUN 30 mg/dL High 6-25 Creatinine 0.9 mg/dL 0.5-1.2 Sodium 143 mEq/L 135-145 Potassium 4.9 mEq/L 3.5-5.0 Chloride 111 mEq/L High 95-107 Co-2 23 mEq/L Low 24-31 Calcium 9.7 mg/dL 8.5-10.6 GFR 67 ML/MIN/1.73SQM >60 1 CHOLESTEROL Less than 200mg/dl Low risk 201-239 mg/dl Borderline risk Equal to or greater 240mg/dl High risk CHOLESTEROL COMMENTS REPORT FAXED TO DOCTOR, REQUESTED ON REQUISITION.10/10/23 2 TRIGLYCERIDES Less than 150mg/dl Normal 150-199mg/dl Borderline 200-499mg/dl High Greater than 500mg/dl Very High 3 HDL <40mg/dl Elevated Risk 41-59mg/dl Risk >=60mg/dl Least Risk 4 LDL <100mg/dl Optimal 100-129mg/dl Near Optimal 130-159mg/dl Borderline High 160-189mg/dl High >=190 Very High 5 VLDL Less than 30mg/dl Normal 6 CHOL/HDL <4.0 Optimal 4.0-5.0 Borderline >6.0 High Risk 7 NON-HDL 30mg/dl higher than LDL Target 8 STAT RESULTS CALLED AND FAXED TO JAMES Gilliland AT 3:17 ON 07/18/23 WK Procedures Date Code Description Status 10/10/2023 34462 Venipuncture Routine Complet ed 09/12/2023 G0283 Electrical Stimulation as Th erapy Plan Of Care Completed 09/12/2023 57209 Therapeutic Activities Direc t, Each 15 Minutes Completed 09/12/2023 21171 Therapeutic Procedure Group Completed 09/12/2023 43348 Manual Community Leader 1/> Area 15 Min Each Region Completed 09/12/2023 30048 Therapy Proc, Neuromuscular Reeducation Of Movement Completed 09/12/2023 74318 Hot/Cold Pack Completed 09/10/2023 82237 Manual Community Leader 1/> Area 15 Min Each Region Completed 09/10/2023 67056 Hot/Cold Pack Completed 09/10/2023 29940 Therapy Proc, Neuromuscular Reeducation Of Movement Completed 09/10/2023 18361 Therapeutic Procedure Group Completed 09/10/2023 20921 Therapeutic Activities Direc t, Each 15 Minutes Completed 09/10/2023 G0283 Electrical Stimulation as Th erapy Plan Of Care Completed 09/08/2023 G0283 Electrical Stimulation as Th erapy Plan Of Care Completed 09/08/2023 22451 Therapeutic Activities Direc t, Each 15 Minutes Completed 09/08/2023 94224 Therapeutic Procedure Group Completed 09/08/2023 87140 Manual Community Leader 1/> Area 15 Min Each Region Completed 09/08/2023 72151 Therapy Proc, Neuromuscular Reeducation Of Movement Completed 09/08/2023 54109 Hot/Cold Pack Completed 09/03/2023 15563 Therapy Proc, Neuromuscular Reeducation Of Movement Completed 09/03/2023 43755 Hot/Cold Pack Completed 09/03/2023 49651 Manual Community Leader 1/> Area 15 Min Each Region Completed 09/03/2023 G0283 Electrical Stimulation as Th erapy Plan Of Care Completed 09/03/2023 09828 Therapeutic Procedure Group Completed 09/01/2023 G0283 Electrical Stimulation as Th erapy Plan Of Care Completed 09/01/2023 84092 Therapeutic Activities Direc t, Each 15 Minutes Completed 09/01/2023 63535 Therapeutic Procedure Group Completed 09/01/2023 26683 Manual Community Leader 1/> Area 15 Min Each Region Completed 09/01/2023 79844 Therapy Proc, Neuromuscular Reeducation Of Movement Completed 09/01/2023 17739 Hot/Cold Pack Completed 08/27/2023 23587 Manual Community Leader 1/> Area 15 Min Each Region Completed 08/27/2023 59581 Hot/Cold Pack Completed 08/27/2023 52029 Therapy Proc, Neuromuscular Reeducation Of Movement Completed 08/27/2023 04552 Therapeutic Procedure Group Completed 08/27/2023 33254 Therapeutic Activities Direc t, Each 15 Minutes Completed 08/27/2023 G0283 Electrical Stimulation as Th erapy Plan Of Care Completed 08/26/2023 G0283 Electrical Stimulation as Th erapy Plan Of Care Completed 08/26/2023 59468 Therapeutic Activities Direc t, Each 15 Minutes Completed 08/26/2023 44014 Manual Community Leader 1/> Area 15 Min Each Region Completed 08/26/2023 63432 Therapy Proc, Neuromuscular Reeducation Of Movement Completed 08/26/2023 10370 Therapy Proc 1/> Area 15Min Ea Completed 08/26/2023 71112 Hot/Cold Pack Completed 08/25/2023 02759 Therapy Proc 1/> Area 15Min Ea Completed 08/25/2023 77085 Hot/Cold Pack Completed 08/25/2023 G0283 Electrical Stimulation as Th erapy Plan Of Care Completed 08/25/2023 67441 Manual Community Leader 1/> Area 15 Min Each Region Completed 08/25/2023 22539 Therapeutic Procedure Group Completed 08/25/2023 67481 Therapy Proc, Neuromuscular Reeducation Of Movement Completed 08/22/2023 G0283 Electrical Stimulation as Th erapy Plan Of Care Completed 08/22/2023 79893 Therapeutic Procedure Group Completed 08/22/2023 94774 Manual Community Leader 1/> Area 15 Min Each Region Completed 08/22/2023 07230 Therapy Proc, Neuromuscular Reeducation Of Movement Completed 08/22/2023 88187 Therapy Proc 1/> Area 15Min Ea Completed 08/22/2023 79012 Hot/Cold Pack Completed 08/20/2023 59556 Therapy Proc, Neuromuscular Reeducation Of Movement Completed 08/20/2023 25072 Hot/Cold Pack Completed 08/20/2023 56243 Therapy Proc 1/> Area 15Min Ea Completed 08/20/2023 73544 Manual Community Leader 1/> Area 15 Min Each Region Completed 08/20/2023 G0283 Electrical Stimulation as Th erapy Plan Of Care Completed 08/18/2023 G0283 Electrical Stimulation as Th erapy Plan Of Care Completed 08/18/2023 00478 Therapeutic Procedure Group Completed 08/18/2023 91896 Manual Community Leader 1/> Area 15 Min Each Region Completed 08/18/2023 50893 Therapy Proc, Neuromuscular Reeducation Of Movement Completed 08/18/2023 98854 Therapy Proc 1/> Area 15Min Ea Completed 08/18/2023 51276 Hot/Cold Pack Completed 08/15/2023 G0283 Electrical Stimulation as Th erapy Plan Of Care Completed 08/15/2023 34628 Hot/Cold Pack Completed 08/15/2023 87798 Therapy Proc 1/> Area 15Min Ea Completed 08/15/2023 74471 Manual Community Leader 1/> Area 15 Min Each Region Completed 08/15/2023 55842 Therapeutic Procedure Group Completed 08/15/2023 35847 Therapy Proc, Neuromuscular Reeducation Of Movement Completed 08/14/2023 68515 Hot/Cold Pack Completed 08/14/2023 68375 Therapy Proc 1/> Area 15Min Ea Completed 08/14/2023 49125 Therapy Proc, Neuromuscular Reeducation Of Movement Completed 08/14/2023 16314 Manual Community Leader 1/> Area 15 Min Each Region Completed 08/14/2023 14660 Therapeutic Procedure Group Completed 08/14/2023 G0283 Electrical Stimulation as Th erapy Plan Of Care Completed 08/12/2023 22001 Physical Therapy Evaluation Low Complexity Completed 08/12/2023 87782 Manual Community Leader 1/> Area 15 Min Each Region Completed 08/12/2023 70237 Therapy Proc 1/> Area 15Min Ea Completed 07/28/2023 1111F D/C Medications Reconciled W/Current Medications In Outpt MR Completed 07/18/2023 94866 Venipuncture Routine Complet ed 09/05/2022 [id number] Bone Mineral Density Test Co mpleted 09/05/2022 [id number] Mammogram Completed 08/07/2018 [id number] Colonoscopy Completed Medical Devices Description No Information Available Encounters Type Date Location Provider Dx Diagnosis Office Visit 07/18/2023 9:00a [facility] Z01.818 Encounter for other preprocedural examination Office Visit 05/19/2023 10:45a Maggy Gee PA-C M25.561 Pain in right knee M17.0 Bilateral primary os teoarthritis of knee Assessments Date Code Description Provider 10/10/2023 E66.01 Morbid (severe) obesity due to excess calories Lab - [place] 10/10/2023 D47.3 Essential (hemorrhagic) thro mbocythemia Lab - [place] 10/10/2023 Z13.6 Encounter for sc reening for cardiovascular disorders Lab - [place] 10/10/2023 E55.9 Vitamin D deficiency, unspec ified Lab - [place] 10/10/2023 E83.51 Hypocalcemia Lab - [facility] 10/10/2023 Z78.9 Other specified health statu s Lab - [place] 09/12/2023 M25.561 Pain in right knee Jcarlos Bailey, DPT 09/12/2023 Z47.1 Aftercare follow ing joint replacement surgery Jcarlos Bailey, DPT 09/10/2023 M25.561 Pain in right knee Jordan mullins, DPT 09/10/2023 Z47.1 Aftercare follow ing joint replacement surgery Jordan Gary, DPT 09/08/2023 M25.561 Pain in right knee Jordan B Rafia mullins, DPT 09/08/2023 Z47.1 Aftercare follow ing joint replacement surgery Jordan Gary, DPT 09/05/2023 M25.561 Pain in right knee Jordan B Rafia mullins, DPT 09/05/2023 Z47.1 Aftercare follow ing joint replacement surgery Jordan Gary, DPT 09/03/2023 M25.561 Pain in right knee Jordan B Rafia mullins, DPT 09/03/2023 Z47.1 Aftercare follow ing joint replacement surgery Jordan Dionna Abdirahman, DPT 09/01/2023 M25.561 Pain in right knee Jordan Dionna Rafia mullins, DPT 09/01/2023 Z47.1 Aftercare follow ing joint replacement surgery Jordan Gary, DPT 08/27/2023 M25.561 Pain in right knee Jcarlos Bailey, DPT 08/27/2023 Z47.1 Aftercare follow ing joint replacement surgery Jcarlos Bailey, DPT 08/26/2023 M25.561 Pain in right knee Jordan B Rafia mullins, DPT 08/26/2023 Z47.1 Aftercare follow ing [...] 08/18/2023 M25.561 Pain in right knee Jcarlos Bailye, DPT 08/18/2023 Z47.1 Aftercare follow ing joint replacement surgery Jcarlos Bailey, DPT 08/15/2023 M25.561 Pain in right knee Jcarlos Bailey, DPT 08/15/2023 Z47.1 Aftercare follow ing joint replacement surgery Jcarlos Bailey, DPT 08/14/2023 M25.561 Pain in right knee Jordan Dionna mullins, DPT 08/14/2023 Z47.1 Aftercare follow ing joint replacement surgery Jordan Dionna Gary, DPT 08/12/2023 M25.561 Pain in right knee Jordan Dionna gaticaalbaro, DPT 08/12/2023 Z47.1 Aftercare follow ing joint [...] Appointment(s):* 10/17/2023 6:30 am - Lab - [facility] * 10/31/2023 11:00 am - [facility] [place] 07/18/2023 - [facility]* Z01.818 Encounter for [...]
--- OUTSIDE RECORDS SUMMARY | 2023-11-04 15:45 | External Medical Summary ---
Author Name Unknown Address Unknown Organization [facility]:[address] [place] [address] Laboratory Report Ordering Provider Test Date Status IRVING PORTER 10/10/2023 07:52 Final Observation Date Value Abnormality Reference (Units ) Status Glucose 10/10/2023 14:52 110 70-110 (MG/DL) Final BUN 10/10/2023 14:52 22 6-25 (MG/DL) Final Creatinine 10/10/2023 14:52 0.8 0.5-1.2 (MG/DL) Final Sodium 10/10/2023 14:52 137 135-145 (MEQ/L) Final Potassium 10/10/2023 14:52 6.0 Above high normal 3.5-5.0 (MEQ/L) Final Cl 10/10/2023 14:52 104 95-107 (MEQ/L) Final CO2 10/10/2023 14:52 22 Below low normal 24-31 (MEQ/L) Final Alk Phos 10/10/2023 14:52 68 43-122 (IU/L) Final ALT (Alanine aminotransferase) 10/10/2023 14:52 19 10-40 (IU/L) Final AST (Aspartate aminotransferase) 10/10/2023 14:52 15 3-42 (IU/L) Final Bilirubin, Total 10/10/2023 14:52 0.4 0.1-1.3 (MG/DL) Final Calcium 10/10/2023 14:52 9.8 8.5-10.6 (MG/DL) Final Protein 10/10/2023 14:52 7.3 5.8-8.0 (G/DL) Final Albumin 10/10/2023 14:52 4.8 3.0-5.2 (G/DL) Final GLOBULIN 10/10/2023 14:52 2.5 2.0-3.4 (G/DL) Final GFR (estimated) 10/10/2023 14:52 76 >60 (ML/MIN/1.73 SQM) Final Performing Location [facility] [address] [place] [address]
[2023-11-04] MEDS ORDERED: ALUMINUM/MAGNESIUM SUSP 30 ML UDC PO PRN (15:52)
[2023-11-04] MEDS ORDERED: METOCLOPRAMIDE HCL INJ 5 MG/ML 2 ML VIAL IV PRN (15:52)
[2023-11-04] MEDS ORDERED: bisacodyL 10 MG SUPP PR PRN (15:52)
[2023-11-04] MEDS ORDERED: HYDROmorphone INJ 0.5 MG/0.5 ML SYR IV PRN (15:52)
[2023-11-04] MEDS ORDERED: NALOXONE HCL 0.4 MG/1 ML VIAL/CARP IV PRN (15:52)
[2023-11-04] MEDS ORDERED: MAGNESIUM HYDROXIDE SUSP 30 ML UDC PO PRN (15:52)
[2023-11-04] MEDS: SODIUM CHLORIDE 0.9% 1,000 ML IV SCH (16:51)
[2023-11-04] MEDS: Scopolamine CHECK PATCH PLACEMENT SCH ×2 (17:37→23:51)
[2023-11-04] MEDS: ASCORBIC ACID 500 MG TAB PO SCH (17:38)
[2023-11-04] MEDS: KETOROLAC TROMETHAMINE 15 MG/ML VIAL IV SCH ×2 (17:40→23:51)
[2023-11-04] MEDS: ACETAMINOPHEN 500 MG TAB PO SCH (19:59)
[2023-11-04] MEDS: ASPIRIN 81 MG ECTAB PO SCH (19:59)
[2023-11-04] MEDS: ceFAZolin 2000MG 2,000 MG/15 ML SYR IV SCH (19:59)
[2023-11-04] MEDS: DOCUSATE SODIUM 100 MG CAP PO SCH (20:00)
[2023-11-04] MEDS ORDERED: TRANEXAMIC ACID / 0.7% NACL 1,000 MG/100 ML BAG IV SCH (20:00)
[2023-11-04] MEDS ORDERED: ASPIRIN 81 MG ECTAB PO SCH (21:00)
[2023-11-04] MEDS ORDERED: SENNA 8.6 MG TAB PO SCH ×3 (21:00)
[2023-11-04] MEDS: oxyCODONE HCL IR 5 MG TAB (IMMEDIATE RELEASE) PO PRN (21:23)
[2023-11-04] MEDS ORDERED: ZOLPIDEM TARTRATE 5 MG TAB PO PRN (21:30)
[2023-11-05] MEDS: SODIUM CHLORIDE 0.9% 1,000 ML IV SCH (01:48)
[2023-11-05] MEDS: oxyCODONE HCL IR 5 MG TAB (IMMEDIATE RELEASE) PO PRN ×2 (03:22→08:27)
[2023-11-05] MEDS: ceFAZolin 2000MG 2,000 MG/15 ML SYR IV SCH (05:02)
[2023-11-05] MEDS: KETOROLAC TROMETHAMINE 15 MG/ML VIAL IV SCH (05:02)
[2023-11-05] MEDS: ACETAMINOPHEN 500 MG TAB PO SCH (05:02)
[2023-11-05] MEDS ORDERED: dexAMETHasone 10 MG in SYRINGE 0 ML IV SCH (08:00)
[2023-11-05] MEDS: DOCUSATE SODIUM 100 MG CAP PO SCH (08:34)
[2023-11-05] MEDS: ASPIRIN 81 MG ECTAB PO SCH (08:34)
[2023-11-05] MEDS: ASCORBIC ACID 500 MG TAB PO SCH (08:35)
[2023-11-05] MEDS: Scopolamine CHECK PATCH PLACEMENT SCH (08:35)
[2023-11-05 08:41] LABS: Hematocrit (blood only) 30.6 % (37.0-47.0); Hemoglobin 9.9 g/dl (12.0-16.0); Mean Corpuscular Hemoglobin 29.4 pg (25.0-34.0); Mean Corpuscular Hgb Conc 32.4 g/dL (32.0-36.0); Mean Corpuscular Volume 90.8 fL (80.0-100.0); Mean Platelet Volume 9.7 fL (9.4-12.4); Platelet Count 333 K/uL (130-400); RDW Coefficient of Variation 13.6 % (11.5-14.5); RDW Standard Deviation 45.5 fL (36.4-46.3); Red Blood Count 3.37 M/uL (4.20-5.40); White Blood Count 12.76 K/ul (4.8-10.8)
[2023-11-05 08:55] LABS: BUN Creatinine Ratio 26.2 (10-20); Calcium 8.9 mg/dl (8.6-10.3); Creatinine Clr Calc Pharmacy 58.4 ml/min; Est GFR (African American) 62.2 ml/min; Est GFR (Non-African American) 53.7 ml/min; Potassium 4.4 mmol/L (3.5-5.1)
[2023-11-05] MEDS ORDERED: VIT C E CUPRIC ZINC LUTEIN PO SCH (09:00)
[2023-11-05] MEDS ORDERED: MULTIVITAMIN TAB PO SCH (09:00)
[2023-11-05] MEDS ORDERED: lisinopril 10 MG TAB PO SCH (09:00)
[2023-11-05] MEDS ORDERED: CALCIUM CARBONATE 1250MG TAB PO SCH (09:00)
[2023-11-05] MEDS ORDERED: NON-FORMULARY MEDICATION (Glucosamine-Chondroitin [Osteo Bi-Flex] 250-200 mg Tablet) PO SCH (09:00)
[2023-11-05] MEDS ORDERED: SPIRONOLACTONE 25 MG TAB PO SCH (09:00)
--- NOTE | 2023-11-05 10:25 | Orthopedic Progress Note ---
Date of Service November 05, 2023 Assessment & Plan (1) Status post left knee replacement: Overall, she is doing quite well today with good pain control to the left knee. She has participated well with physical therapy this morning doing ambulation and range of motion exercises. She is on aspirin for DVT prophylaxis. Once evaluated by all needed services, she can be discharged home later this morning. She will follow-up with Dr. Juares in 2 weeks for postoperative care. Dave Gerard was seen and evaluated this morning resting comfortably in no apparent distress. She notes that her pain is well-controlled to the left knee. She just finished physical therapy upon my evaluation of her which she did very well at. She had no significant issues with physical therapy. She denies any other concerns today. Review of Systems All systems reviewed & are unremarkable except as noted in HPI & below. Physical Exam . On physical examination of the left knee, dressings are clean, dry, intact. Her leg is out in full extension. She has active plantarflexion dorsiflexion of the left ankle. +2 DP and PT pulses. Less than 2-second capillary refill. Normal sensation. Neurovascular intact. Results & Data Results & Data Laboratory Results . Diagnostic Findings . Postoperative x-rays of the left knee show prosthesis to be in anatomical alignment with no signs of fracture complication or loosening. PG Care Time/CCT Total # of Minutes Spent Total Time Spent with Patient: Total time spent is greater than 50% in coordination of care (as documented) at patient's floor/unit and/or counseling patient: Coding Level of Care Code 41162 Post Operative Follow-Up Diagnoses Status post left knee replacement Z96.652
--- NOTE | 2023-11-05 10:26 | Discharge Summary ---
Date of Service November 05, 2023 Admission HPI (Per Admitting) . Patient is a 68-year-old female now about 3 months out from a right knee replacement with persistent left knee pain discomfort. She is got a long history of knee problems treated conservatively over the years which has become less successful. She is done well with the right knee replacement and very happy with it. That she like to have her left knee fixed to soon as possible. She has been through extensive conservative treatment for both her knees at [facility] in [place]. She is failed conservative care. Admission Exam (Per Admitting) . Physical examination is a pleasant middle-age female but looks in good health. Examination of both knees reveal patient who ambulates independently. Examination of the left knee reveals a slight varus alignment to her knee. Moderate soft tissue envelope. Tender over the medial joint line. Small effusion. Range of motion 5-1 20. No instability. Examination of the right knee reveals well-healed incision. Not much swelling. Range of motion 0-1 20. Good straight leg raise. Principal Diagnosis Same as "Discharge Diagnosis" noted below under Discharge Instructions. Discharge Exam . On physical examination of the left knee, dressings are clean, dry, intact. Her leg is out in full extension. She has active plantarflexion dorsiflexion of the left ankle. +2 DP and PT pulses. Less than 2-second capillary refill. Normal sensation. Neurovascular intact. Discharge Data Procedures Performed Operation Date: 11/04/23 12:30 Actual Procedures p Left Total Knee Arthroplasty(Left) - Andrew Juares MD Ordered Studies 11/04/23 05:00 US - OR guided needle placemen Routine Hospital Course (1) Status post left knee replacement: On November 04, 2023 Rajani arrived at [facility] and underwent a left total knee arthroplasty performed by Dr. Juares with no complications. She had a spinal anesthetic. Postoperatively, she was started on aspirin for DVT prophylaxis and transferred to the general orthopedic floor in stable condition. Her hospital course was uneventful. On postoperative day #1, her vital signs were stable and her pain was well-controlled. She participated well with physical therapy working on ambulation and range of motion exercises. She was then discharged home in stable condition. She will follow-up with Dr. Juares in 2 weeks for postoperative care. PG Care Time/CCT Total # of Minutes Spent Total Time Spent with Patient: Total time spent is greater than 50% in coordination of care (as documented) at patient's floor/unit and/or counseling patient: Discharge Plan Discharge Items Patient Disposition: Home - Home Health Services Reason For Visit: LEFT KNEE REPLACEMENT Discharge Diagnosis: Left Knee Replacement Activity: Per Instructions section Weightbearing: Full weightbearing Non-emergency contact: Surgeon Call non-emergency contact if: you have any medication questions Follow-up/Referrals: Joy Juan M.D. [Primary Care Provider] - Diet: Regular Addtl Attending Provider Instructions: ACTIVITY RECOMMENDATIONS: Physical Therapy: * You will go to physical therapy three times each week for four to six weeks after your surgery in order to regain your knee range of motion and to retrain your knee to work properly. * It is just as important to make sure you are getting your knee perfectly straight as it is to regain your knee bend. * Taking a pain pill an hour before therapy can help you have a more productive and comfortable therapy session. Home Exercise: * You were shown a series of exercises (heel props, heel slides, etc.) in the hospital. Do these exercises three to four times each day including the exercises you were shown in physical therapy. Walking: * Get up and walk several times each day. For the first four weeks, try not to stand or walk for more than one hour at a time. If you do stand or walk for more than one hour, you will not hurt anything, but your knee and leg will likely swell. * As you feel comfortable, you may change from the walker or crutches to a cane and then to independent walking. MEDICATIONS: New Medicine: * You will likely be taking one or more of these medications: 1. Oxycodone - A quick and shorter-acting pain medication. Take one to two tablets every six hours to lessen your pain. 2. Aspirin - Thins your blood to lessen the chance of forming a blood clot. * The most common side effects of pain medicine and iron are nausea and constipation. If nausea or constipation is too much of a problem or if you have any que stions about your new medicines or doses, call [facility] at [phone]. We will try to help you manage these issues. "VERY IMPORTANT TO READ AND REVIEW" Pain: * The immediate post-operative period after knee replacement surgery is often quite painful. * You are given a prescription for pain medicine. You should take it, as directed, when you need it, especially before physical therapy and before going to bed. Pain that interferes with sleep is very common and can last several months. * You will likely need pain medicine for the first four to six weeks. It will not stop all of the pain. The pain will lessen and as you feel better, you may change to milder pain medicine such as Tylenol. * The most common side effects of pain medicine are nausea and constipation, so don't take more than you need. SPECIAL CARE INSTRUCTIONS: TEDs/Elastic Stockings: * The white elastic stockings help limit swelling and prevent blood clots from forming in your legs. The more you wear them, the more they work. * Wear them for six weeks after knee replacement surgery and four weeks after partial knee replacement. Incision Site Care: * Remove dressing postoperative day 2 and then shower. Keep direct shower pressure off the incision site. * After showering, cover janett with dry gauze and change daily or more frequently if the dressing is getting saturated with drainage. * Use the AGUSTIN stockings to hold dressing in place. DO NOT apply tape on the skin. * May completely stop using bandage if wound is dry and no drainage * Janett are removed between 2 and 3 weeks post-op. If your follow-up appointment is made before 2 weeks, please have your appointment re- scheduled. It is too early to remove the janett. Prevention of Infection: * Take antibiotics one hour before any dental cleaning, dental work, urological procedure, gastrointestinal procedure or any invasive surgery in order to prevent your new joint from getting infected. * You may get the antibiotics from the doctor performing the procedure or you may call our office at [phone] before and we will call in a prescri ption to the pharmacy of your choice. Things to Watch For: * Drainage from the incision site that occurs more than one week after your surgery. * Severely increased knee/leg pain or swelling. * Increased redness at the incision site. * Fever above 102 degrees Fahrenheit. * Unusual chest pain or shortness of breath. * Unusual pain or burning with urination. Call [facility] at [phone] with any of the above problems or if you have any questions about your medicines or recovery. FOLLOW UP VISIT: Make an appointment to see your doctor for approximately two weeks after surgery for a progress check and staple removal by calling the office at [phone]. Pending Studies at Discharge: No Stand-Alone Forms: My [facility], Smoking Cessation Medications and DC Order Prescriptions: Continued aspirin [Amisha Low Dose Aspirin] 81 mg tablet,delayed release (DR/EC) 81 mg PO BID 45 Days Qty: 90 0RF Rx Instructions: Take to prevent blood clots. oxycodone 5 mg tablet 5 - 10 mg PO Q6 PRN (Reason: pain) Qty: 40 0RF Rx Instructions: Take as needed for pain ondansetron 4 mg tablet,disintegrating 4 mg PO Q8 PRN (Reason: nausea) Qty: 20 1RF Rx Instructions: Take as needed for nausea ketorolac 10 mg tablet 10 mg PO Q8H 5 Days Qty: 15 0RF Rx Instructions: Take 3 times per day with food for 5 days to lessen pain and swelling. sennosides [Senokot] 8.6 mg tablet 8.6 mg PO BID 14 Days Qty: 28 0RF Rx Instructions: Take two times a day to prevent/treat constipation acetaminophen [Tylenol Extra Strength] 500 mg tablet 1,000 mg PO TID 30 Days Qty: 180 0RF Rx Instructions: TAke 3 times per day to lessen pain cefadroxil 500 mg capsule 500 mg PO BID 7 Days Qty: 14 0RF Rx Instructions: Take 1 cap twice a day to prevent infection alendronate [Fosamax] 70 mg Tablet 70 mg PO WK calcium carbonate 600 mg calcium (1,500 mg) Tablet 600 mg PO QAM lisinopril 10 mg Tablet 10 mg PO QAM spironolactone [Aldactone] 50 mg Tablet 50 mg PO QAM glucosamine-chondroitin [Osteo Bi-Flex] 250-200 mg Tablet 1 tab PO QAM Rx Instructions: give after food/meal PreserVision Lutein 226-90-0.8-5 mg Capsule 1 cap PO QAM Discontinued sennosides [Senokot] 8.6 mg tablet 8.6 mg PO BID 14 Days Qty: 28 0RF Rx Instructions: Take two times a day to prevent/treat constipation aspirin [Amisha Low Dose Aspirin] 81 mg tablet,delayed release (DR/EC) 81 mg PO BID 45 Days Qty: 90 0RF Rx Instructions: Take to prevent blood clots. acetaminophen [Tylenol Extra Strength] 500 mg Tablet 1,000 mg PO TID PRN (Reason: Pain) Admission Data Admit Date/Time: 11/04/23 14:28 Attending Provider: Andrew Juares Admit Provider: Andrew Juares Primary Care Provider: Joy Juan Other Providers: [facility],Home Health
== END 2023-11-05 11:58 | disposition home health service (06) ==
LOC: ASU 10:20 → PACUINP 10:20 → 3N 16:36